=== PATIENT | male | born 1945 | race Hispanic/Latino ===

== ENCOUNTER 2022-12-17 16:46 | Inpatient (IN) | payer OTHER ==
[2022-12-17] MEDS ORDERED: MORPHINE 4 MG/ML SYR ONE (17:27)
[2022-12-17] MEDS ORDERED: ONDANSETRON 4 MG/2 ML VIAL ONE (17:27)
[2022-12-17 18:00] LABS: Hematocrit 40.2 % (39.6-49.0); Lymphocytes % 4.8 % (15.3-44.8); MCV 86.8 fL (80-100); MPV 7.8 fL (7.6-11.3); RBC Red Blood Cell Count 4.63 M/uL (4.33-5.43)
[2022-12-17 18:07] LABS: Protime INR 1.39
[2022-12-17] MEDS ORDERED: NA CHLORIDE 0.9% 500 ML ONE ×3 (18:16→18:56)
[2022-12-17 18:24] LABS: Blood Morphology Comment NOT SEEN (NOT SEEN); Platelet Estimate ADEQ
--- NOTE | 2022-12-17 18:38 | RAD REPORT ---
EXAM DESCRIPTION: [place] Single View12/17/2022 6:05 pm CLINICAL HISTORY: ABDOMINAL DISTENTION COMPARISON: No comparisons TECHNIQUE: Portable AP view of the chest. FINDINGS: Blunting of both costophrenic angles, which may relate to decreased inspiratory effort, sm all effusions, or atelectasis. No pneumothorax. The cardiomediastinal contours are unremarkable. IMPRESSION: Blunting of both costophrenic angles, which may relate to decreased inspiratory effort, small effusions, or atelectasis.
[2022-12-17] MEDS ORDERED: FENTANYL CITR 100 MCG/2 ML ONE ×2 (18:55→21:52)
[2022-12-17 19:07] LABS: Albumin 3.3 g/dL (3.4-5.0); Bilirubin Direct 0.3 mg/dL (0-0.2); Bilirubin Total 0.8 mg/dL (0.2-1.0); Magnesium 1.7 mg/dL (1.6-2.4); Potassium 4.2 mmol/L (3.5-5.1); Protein, Total 7.9 g/dL (6.4-8.2); Troponin High Sensitivity 18.5 pg/mL (<58.9)
[2022-12-17] MEDS ORDERED: PIPERACIL/TAZO 3.375 GM VIAL IV ONE (19:09)
[2022-12-17] MEDS ORDERED: NA CHLORIDE 0.9% 100 ML ONE (19:09)
--- NOTE | 2022-12-17 20:58 | RAD REPORT ---
EXAM DESCRIPTION: CT - Abdomen Pelvis Wo Contrast - 12/17/2022 8:27 pm CLINICAL HISTORY: Abdominal distention. Left-sided abdominal pain. Nausea COMPARISON: None. TECHNIQUE: Axial thin cut CT imaging of the abdomen and pelvis was performed without IV contrast. Mu ltiplanar reformats were generated and reviewed. All CT scans are performed using dose optimization technique as appropriate and may include automated exposure control or mA/KV adjustment according to patient size. FINDINGS: Absence of IV contrast limits evaluation. Bibasilar dependent atelectatic changes. Moderate amount of free air throughout the anterior abdomen, without significant abdominal distention . A long segment of jejunum in the left upper anterior abdomen demonstrates wall thickening with adjace nt fat stranding, and probably reflects an inflamed segment. Remainder of the small bowel is nondiste nded. A segment of ileum extends within a right inguinal hernia, with no evidence of obstruction. The liver, spleen and pancreas show no suspicious findings. Gallbladder and biliary tree are also wit hout suspicious finding. No hydronephrosis or suspicious renal mass. No significant adrenal finding. A fluid density right re nal midpole 2.9 centimeter cystic lesion is noted, as well as a left renal lower pole 3.7 centimeter hypoattenuating lesion. Both are not well characterized on this noncontrast exam. Trace amounts of free fluid along the left paracolic gutter. Colonic diverticulosis. A small left ing uinal hernia containing fat is also noted. The urinary bladder is without significant finding. No suspicious bony findings. IMPRESSION: Long segment of jejunum in the left upper anterior abdomen demonstrating wall thickening . Moderate amount of free air, suggesting presence of small bowel perforation, likely related to that segment. The etiology could be infectious, inflammatory, or related to bowel ischemia, absence of IV contrast limits evaluation. Other incidental findings as above, including right inguinal hernia containing nonobstructed segment of ileum, and hypoattenuating renal cortical lesions suggestive of cysts but not fully characterized. The findings were communicated to Jairon Villalta MD on 12/17/2022 at 20:47 hours.
--- NOTE | 2022-12-17 21:20 | EDPHYS ---
Physician Documentation [facility] Name: Riaz Pruett Age: 77 yrs Sex: Male : 1945 Arrival Date: 12/17/2022 Time: 16:49 Bed 17 Private MD: ED Physician Oswaldo Graff HPI: 12/17 17:25 This 77 yrs old Male presents to ER via Wheelchair with complaints of cp Abdominal Pain. 17:25 The patient presents with abdominal pain mid abdomen. cp 17:25 Onset: The symptoms/episode began/occurred yesterday, and became worse today. The cp symptoms do not radiate. Associated signs and symptoms: Pertinent positives: anorexia, nausea, Pertinent negatives: chest pain, constipation, diarrhea, fever, testicular pain, vomiting. The symptoms are described as constant. Severity of pain: in the emergency department the pain is unchanged despite home interventions. The patient has not experienced similar symptoms in the past. Historical: - Allergies: 16:58 No Known Allergies; hb - Immunization history:: Adult Immunizations up to date. - Social history:: Smoking status: unknown. ROS: 17:30 Constitutional: Positive for poor PO intake, Negative for body aches, chills, fever. cp 17:30 Eyes: Negative for injury, pain, redness, and discharge. cp 17:30 ENT: Negative for drainage from ear(s), ear pain, sore throat, difficulty swallowing, difficulty handling secretions. 17:30 Cardiovascular: Negative for chest pain, edema, palpitations. 17:30 Respiratory: Negative for cough, shortness of breath, wheezing. 17:30 Abdomen/GI: Positive for abdominal pain, nausea, abdominal distension, anorexia, Negative for vomiting, diarrhea, constipation, black/tarry stool, rectal bleeding. 17:30 : Negative for urinary symptoms, testicular pain 17:30 Neuro: Negative for altered mental status, dizziness, headache, numbness, syncope, weakness. 17:30 All other systems are negative. Exam: 17:35 Constitutional: The patient appears in no acute distress, alert, awake, cp non-diaphoretic, non-toxic, well developed, well nourished, in obvious pain, uncomfortable. 17:35 Head/Face: Normocephalic, atraumatic. cp 17:35 Eyes: Periorbital structures: appear normal, Conjunctiva: normal, no exudate, no injection, Sclera: no appreciated abnormality, Lids and lashes: appear normal, bilaterally. 17:35 ENT: External ear(s): are unremarkable, Nose: is normal, Mouth: Lips: moist, Oral mucosa: pink and intact, moist, Posterior pharynx: is normal, airway is patent, no erythema, no exudate. 17:35 Chest/axilla: Inspection: normal, Palpation: is normal, no crepitus, no tenderness. 17:35 Cardiovascular: Rate: normal, Rhythm: regular, Edema: ankle edema, that is very mild, JVD: is not appreciated. 17:35 Respiratory: the patient does not display signs of respiratory distress, Respirations: normal, no use of accessory muscles, no retractions, labored breathing, is not present, Breath sounds: are clear throughout, no decreased breath sounds, no stridor, no wheezing. 17:35 Abdomen/GI: Inspection: distension, that is moderate, Bowel sounds: active, all quadrants, Palpation: soft, in all quadrants, moderate abdominal tenderness, in the right upper quadrant, right lower quadrant and left lower quadrant, severe abdominal tenderness, in the left upper quadrant, rebound tenderness, is not appreciated, voluntary guarding, is elicited in all quadrants. 17:35 Back: CVA tenderness, is absent. 17:35 Skin: cellulitis, is not appreciated, no rash present. 17:35 Neuro: Orientation: to person, place \T\ time. Mentation: is normal, Cerebellar function: is grossly normal, Motor: moves all fours, strength is normal, Sensation: is normal. 17:47 ECG was reviewed by the Attending Physician. cp Vital Signs: 16:56 BP 160 / 104; Pulse 99; Resp 16; Temp 98.4; Pulse Ox 100% on R/A; Weight 88.45 kg; hb Height 5 ft. 9 in. (175.26 cm); Pain 10/10; 17:57 BP 99 / 54 RA; Pulse 92; Resp 18; Pulse Ox 99% on R/A; eh3 17:57 BP 94 / 58 LA; Pulse 91; Resp 18; Pulse Ox 98% on R/A; eh3 18:45 BP 105 / 58; Pulse 85; Resp 20; Pulse Ox 95% on R/A; eh3 19:45 BP 110 / 57; Pulse 82; Resp 20; Pulse Ox 95% on R/A; eh3 20:45 BP 103 / 54; Pulse 84; Resp 18; Pulse Ox 95% on R/A; eh3 16:56 Body Mass Index 28.80 (88.45 kg, 175.26 cm) hb MDM: 17:01 Patient medically screened. cp 18:00 Differential diagnosis: appendicitis, bowel obstruction, cholecystitis, Cholelithiasis, cp diverticulitis, gastritis, non-specific abd pain, pancreatitis, Perf. Duodenal Ulcer, Perf. Gastric Ulcer, Pyelonephritis, Ureterolithiasis, urinary tract infection. 21:05 Data reviewed: vital signs, nurses notes, lab test result(s), EKG, radiologic studies, cp CT scan, plain films. 21:05 Management of patient was discussed with the following: L[employer] Operator: DR Herring to discuss CT abdomen/pelvis findings. Wants patient admitted for emergent surgery tonight to services of hospitalist. Zosyn antibiotic given IV. Care significantly affected by the following chronic conditions: Hypertension. Counseling: I had a detailed discussion with the patient and/or guardian regarding: the historical points, exam findings, and any diagnostic results supporting the discharge/admit diagnosis, lab results, radiology results, the need for further work-up and treatment in the hospital. Response to treatment: the patient's symptoms have mildly improved after treatment. 21:20 Management of patient was discussed with the following: Hospitalist: Aurelia Stark NP who will admit patient after discussing results of labs, CT abdomen/pelvis and request by DR Herring. 12/17 17:20 Order name: Basic Metabolic Panel; Complete Time: 20:09 12/17 20:09 Interpretation: GLUC 184; BUN 39; CRE 2.60; GFR 24. 12/17 17:20 Order name: CBC with Diff; Complete Time: 18:43 12/17 18:22 Interpretation: Normal except: WBC 20.80; LEA% 89.4; LYM% 4.8; NEUT A 18.6. 12/17 17:20 Order name: LFT's; Complete Time: 20:09 12/17 20:09 Interpretation: Normal except: BILID 0.3; ALB 3.3; GLOB 4.6; A/G 0.7. 12/17 17:20 Order name: Magnesium; Complete Time: 20:09 cp 12/17 17:20 Order name: NT PRO-BNP; Complete Time: 20:09 cp 12/17 20:09 Interpretation: Abnormal: NT PRO-BNP 2808. cp 12/17 17:20 Order name: PT-INR; Complete Time: 18:22 cp 12/17 17:20 Order name: Troponin HS; Complete Time: 20:09 cp 12/17 17:20 Order name: Lipase; Complete Time: 20:09 cp 12/17 17:20 Order name: Lactate w/ 2H reflex if indic.; Complete Time: 18:43 cp 12/17 18:43 Interpretation: LAC 2.3; Reviewed. cp 12/17 18:07 Order name: Manual Differential; Complete Time: 18:43 EDMS 12/17 18:45 Order name: Urine Microscopic Only cp 12/17 21:23 Order name: SARS RAPID eh3 12/17 21:33 Order name: Urine Dipstick-Ancillary; Complete Time: 21:37 EDMS 12/17 21:45 Order name: SARS-COV-2 Antigen Rapid; Complete Time: 21:49 EDMS 12/17 17:20 Order name: XRAY Chest (1 view); Complete Time: 18:43 cp 12/17 17:20 Order name: EKG; Complete Time: 17:21 cp 12/17 17:20 Order name: Cardiac monitoring; Complete Time: 17:47 cp 12/17 17:20 Order name: EKG - Nurse/Tech; Complete Time: 17:47 cp 12/17 17:20 Order name: IV Saline Lock; Complete Time: 17:47 cp 12/17 17:20 Order name: Labs collected and sent; Complete Time: 17:47 cp 12/17 19:23 Order name: Abdomen ; Complete Time: 20:59 EDMS 12/17 17:20 Order name: O2 Per Protocol; Complete Time: 17:47 cp 12/17 17:20 Order name: O2 Sat Monitoring; Complete Time: 17:47 cp 12/17 18:20 Order name: Labs - recollect needed: green top recollect; Complete Time: 18:40 aa5 12/17 18:45 Order name: Urine Dipstick-Ancillary (obtain specimen); Complete Time: 23:44 cp 12/17 20:50 Order name: NPO; Complete Time: 21:10 cp EC:47 Rate is 88 beats/min. Rhythm is regular. NE interval is normal. QRS interval is normal. cp QT interval is normal. T waves are Inverted in lead aVR. Interpreted by me. Reviewed by me. Administered Medications: 17:40 Drug: morphine 4 mg Route: IVP; Infused Over: 4 mins; Site: left antecubital; 3 19:03 Follow up: Response: Pain is unchanged, physician notified 3 17:40 Drug: Zofran (Ondansetron) 4 mg Route: IVP; Site: left antecubital; 3 19:03 Follow up: Response: Nausea is decreased 3 18:18 Drug: NS 0.9% 500 ml Route: IV; Rate: bolus; Site: left antecubital; 3 19:30 Follow up: IV Status: Completed infusion; IV Intake: 500ml 3 18:30 Drug: NS 0.9% 500 ml Route: IV; Rate: 100 ml/hr; Site: left antecubital; 3 23:47 Follow up: IV Status: Infusion continued upon admission; IV Intake: 350ml 3 19:03 Drug: Zosyn (piperacillin-tazobactam) 3.375 grams Route: IVPB; Infused Over: 60 mins; eh3 Site: left antecubital; 20:00 Follow up: Response: No adverse reaction; IV Status: Completed infusion; IV Intake: eh3 100ml 19:03 Drug: fentaNYL (PF) 25 mcg Route: IVP; Site: left antecubital; 3 20:00 Follow up: Response: Pain is decreased 3 19:03 Drug: NS 0.9% 500 ml Route: IV; Rate: bolus; Site: left antecubital; 3 20:00 Follow up: IV Status: Completed infusion; IV Intake: 500ml 3 21:55 Drug: fentaNYL (PF) 25 mcg Route: IVP; Site: left antecubital; 3 22:05 Follow up: Response: Pain is decreased 3 Disposition Summary: 12/17/22 21:18 Hospitalization Ordered Hospitalization Status: Inpatient Admission cp Location: Intensive Care Unit cp Condition: Stable cp Problem: new cp Symptoms: have improved cp Bed/Room Type: Standard cp Provider: Cristian Serrano(12/17/22 21:26) genny Room Assignment: 7-(12/17/22 21:26) Diagnosis - Acute kidney failure, unspecified cp - Perforation of Small Intestine cp Forms: - Medication Reconciliation Form cp - SBAR form cp Addendum: 12/19/2022 07:19 Co-signature as Attending Physician, Oswaldo Graff MD I reviewed the patient's care r n provided by the Advanced Practice Provider and agree with the diagnosis and treatment plan. Signatures: Dispatcher [employer] EDMS Kimber Bello RN RN mw Nieto, Roman, MD MD rn Calderon, Audri RN RN aa5 Malcolm Fuller PA PA cp Baxter, Heather RN Kanchan Howard RN RN eh3 Rhonda Stark, PAKarenC PA-C sb4 Corrections: (The following items were deleted from the chart) 12/17 19:23 17:39 Abdomen Pelvis W Con+CT.RAD.BRZ ordered. EDMS EDMS : 21:18 Rhonda Stark cp 21: 21:18 cp mw 21:45 20:53 Reynoso ordered. cp 3
--- NOTE | 2022-12-17 21:20 | ER ---
Nurse's Notes [facility] Name: Riaz Pruett Age: 77 yrs Sex: Male : 1945 Arrival Date: 12/17/2022 Time: 16:49 Bed 17 Private MD: Diagnosis: Acute kidney failure, unspecified;Perforation of Small Intestine Presentation: 12/17 16:56 Chief complaint: Left sided abdominal pain and nausea since last night. Coronavirus hb screen: At this time, the client does not indicate any symptoms associated with coronavirus-19. Ebola Screen: No symptoms or risks identified at this time. Initial Sepsis Screen: Does the patient meet any 2 criteria? No. Patient's initial sepsis screen is negative. Does the patient have a suspected source of infection? No. Patient's initial sepsis screen is negative. Risk Assessment: Do you want to hurt yourself or someone else? Patient reports no desire to harm self or others. Onset of symptoms was December 16, 2022. 16:56 Method Of Arrival: Wheelchair hb 16:56 Acuity: VAN 3 hb Historical: - Allergies: 16:58 No Known Allergies; hb - Immunization history:: Adult Immunizations up to date. - Social history:: Smoking status: unknown. Screenin:15 [facility] ED Fall Risk Assessment (Adult) Score/Fall Risk Level 0 - 2 = Low Risk. Abuse eh3 screen: Denies threats or abuse. Denies injuries from another. Nutritional screening: No deficits noted. Tuberculosis screening: No symptoms or risk factors identified. Assessment: 17:15 General: Appears in no apparent distress. uncomfortable, Behavior is calm, cooperative, eh3 appropriate for age. Pain: Complains of pain in left lower quadrant Pain does not radiate. Pain:. Neuro: Level of Consciousness is awake, alert, obeys commands, Oriented to person, place, time, situation. Cardiovascular: Capillary refill < 3 seconds Patient's skin is warm and dry. Respiratory: Airway is patent Respiratory effort is even, unlabored, Respiratory pattern is regular, symmetrical. Respiratory: Reports pain with respiration. GI: Abdomen is round distended, Bowel sounds present X 4 quads. Abd is soft and non tender in right upper quadrant and right lower quadrant Abdomen is tender to palpation Abd is rigid in left upper quadrant and left lower quadrant Reports lower abdominal pain, nausea. : No signs and/or symptoms were reported regarding the genitourinary system. EENT: No signs and/or symptoms were reported regarding the EENT system. Derm: Skin is pink, warm \T\ dry. Musculoskeletal: Circulation, motion, and sensation intact. Range of motion: intact in all extremities. 18:15 Reassessment: Patient appears in no apparent distress at this time. Patient and/or 3 family updated on plan of care and expected duration. Pain level reassessed. Patient is alert, oriented x 3, equal unlabored respirations, skin warm/dry/pink. 18:45 Reassessment: Patient appears in no apparent distress at this time. Patient and/or eh3 family updated on plan of care and expected duration. Pain level reassessed. Patient is alert, oriented x 3, equal unlabored respirations, skin warm/dry/pink. 19:45 Reassessment: Patient appears in no apparent distress at this time. Patient and/or 3 family updated on plan of care and expected duration. Pain level reassessed. Patient is alert, oriented x 3, equal unlabored respirations, skin warm/dry/pink. 20:45 Reassessment: Patient appears in no apparent distress at this time. Patient and/or eh3 family updated on plan of care and expected duration. Pain level reassessed. Patient is alert, oriented x 3, equal unlabored respirations, skin warm/dry/pink. Vital Signs: 16:56 BP 160 / 104; Pulse 99; Resp 16; Temp 98.4; Pulse Ox 100% on R/A; Weight 88.45 kg; hb Height 5 ft. 9 in. (175.26 cm); Pain 10/10; 17:57 BP 99 / 54 RA; Pulse 92; Resp 18; Pulse Ox 99% on R/A; eh3 17:57 BP 94 / 58 LA; Pulse 91; Resp 18; Pulse Ox 98% on R/A; eh3 18:45 BP 105 / 58; Pulse 85; Resp 20; Pulse Ox 95% on R/A; eh3 19:45 BP 110 / 57; Pulse 82; Resp 20; Pulse Ox 95% on R/A; eh3 20:45 BP 103 / 54; Pulse 84; Resp 18; Pulse Ox 95% on R/A; eh3 16:56 Body Mass Index 28.80 (88.45 kg, 175.26 cm) ED Course: 16:49 Patient arrived in ED. rg4 16:50 [facility] Fuller [facility]. cp 16:51 Oswaldo Graff MD is Attending Physician. cp 16:58 Triage completed. hb 16:58 Arm band placed on. hb 17:15 Patient has correct armband on for positive identification. Bed in low position. Call eh3 light in reach. Side rails up X2. Adult w/ patient. Client placed on continuous cardiac and pulse oximetry monitoring. NIBP monitoring applied. Door closed. Noise minimized. Lights dimmed. Warm blanket given. Pillow given. 17:21 Kanchan Rizo, KALYN is Primary Nurse. eh3 17:40 Inserted saline lock: 20 gauge in left antecubital area, using aseptic technique. Blood eh3 collected. 18:07 XRAY Chest (1 view) In Process Unspecified. EDMS 18:24 Notified Nurse Practitioner and/or Physician [employer] Attendant of a critical lab result(s), 11% aa5 bands. 20:29 Abdomen In Process Unspecified. EDMS 21:17 Rhonda Stark PA-C is Hospitalizing Provider. cp 21:26 Hospitalizing Provider role handed off by Rhonda Stark PA-C mw 21:26 Cristian Serrano MD is Hospitalizing Provider. mw 21:26 SARS RAPID Sent. eh3 22:00 No provider procedures requiring assistance completed. Patient admitted, IV remains in eh3 place. Administered Medications: 17:40 Drug: morphine 4 mg Route: IVP; Infused Over: 4 mins; Site: left antecubital; eh3 19:03 Follow up: Response: Pain is unchanged, physician notified eh3 17:40 Drug: Zofran (Ondansetron) 4 mg Route: IVP; Site: left antecubital; eh3 19:03 Follow up: Response: Nausea is decreased eh3 18:18 Drug: NS 0.9% 500 ml Route: IV; Rate: bolus; Site: left antecubital; eh3 19:30 Follow up: IV Status: Completed infusion; IV Intake: 500ml eh3 18:30 Drug: NS 0.9% 500 ml Route: IV; Rate: 100 ml/hr; Site: left antecubital; eh3 23:47 Follow up: IV Status: Infusion continued upon admission; IV Intake: 350ml eh3 19:03 Drug: Zosyn (piperacillin-tazobactam) 3.375 grams Route: IVPB; Infused Over: 60 mins; eh3 Site: left antecubital; 20:00 Follow up: Response: No adverse reaction; IV Status: Completed infusion; IV Intake: eh3 100ml 19:03 Drug: fentaNYL (PF) 25 mcg Route: IVP; Site: left antecubital; eh3 20:00 Follow up: Response: Pain is decreased eh3 19:03 Drug: NS 0.9% 500 ml Route: IV; Rate: bolus; Site: left antecubital; eh3 20:00 Follow up: IV Status: Completed infusion; IV Intake: 500ml eh3 21:55 Drug: fentaNYL (PF) 25 mcg Route: IVP; Site: left antecubital; eh3 22:05 Follow up: Response: Pain is decreased eh3 Medication: 22:00 VIS not applicable for this client. eh3 Intake: 19:30 IV: 500ml; Total: 500ml. eh3 20:00 IV: 500ml; Total: 1000ml. eh3 20:00 IV: 100ml; Total: 1100ml. eh3 23:47 IV: 350ml; Total: 1450ml. eh3 Outcome: 21:18 Decision to Hospitalize by Provider. cp 22:00 Admitted to OR accompanied by nurse, via stretcher. eh3 22:00 Condition: stable 22:00 Instructed on the need for admit. 22:08 Patient left the ED. 3 Signatures: Dispatcher [employer] EDMS Kimber Bello RN RN mw Calderon, Audri RN RN [id number] Malcolm Fuller PA PA cp Ashlyn Vaca RN RN hb Garcia, Rubi rg4 Kanchan Rizo RN RN 3 Corrections: (The following items were deleted from the chart) 18:10 17:57 BP 99 / 54; Pulse 92bpm; Resp 18bpm; Pulse Ox 99% RA; eh3 eh3
[2022-12-17 21:32] LABS: Urine Blood Negative (Negative); Urine Glucose Trace (Negative); Urine Protein 1+ (Negative); Urine Specific Gravity 1.025 (1.005-1.030)
[2022-12-17 21:44] LABS: SARS-CoV-2 Antigen Rapid Res Negative (Negative)
[2022-12-17 21:48] LABS: Transitional Epithelial <5 /HPF (None Seen); Urine Bacteria None Seen /HPF (<20); Urine Mucus Slight /HPF (None Seen)
--- NOTE | 2022-12-17 21:49 | P.HP ---
Certification for Inpatient Patient admitted to: Inpatient With expected LOS: >2 Midnights Patient will require the following post-hospital care: None Practitioner: I am a practitioner with admitting privileges, knowledge of patient current condition, hospital course, and medical plan of care. Services: Services provided to patient in accordance with Admission requirements found in Title 42 Section 412.3 of the Code of Federal Regulations <Rhonda Stark - Last Filed: 12/18/22 01:29> Patient History Date of Service: 12/18/22 Reason for admission: Bowel Perforation History of Present Illness: Patient is a 77 year old male with past medical history of hypertension who presented to the emergency department with complaints of nausea, vomiting, and abdominal pain for the past 24 hours. His labs are significant for WBC 20.8 with left shift and 11 bands, BUN 39, creatinine 2.6, lactate 2.3, BNP 2800, urine ketone & nitrite positive. CT abdomen pelvis showed " Long segment of jejunum in the left upper anterior abdomen demonstrating wall thickening. Moderate amount of free air, suggesting presence of small bowel perforation, likely related to that segment. The etiology could be infectious, inflammatory, or related to bowel ischemia, absence of IV contrast limits evaluation." General surgery, Dr. Herring, was contacted and is taking patient to OR tonight. He was given IV fluids, zosyn, and pain medications with improvement in his symptoms. Patient will be taken to OR for exploratory laparotomy then ICU afterwards for further management. - Past Medical/Surgical History Diabetic: No -: Hypertension -: Bilateral Knee Replacement -: Right Hip Replacement -: Right Shoulder Psychosocial/ Personal History: Patient is . - Family History Family History: Reviewed- Non-Contributory - Social History Smoking Status: Never smoker Alcohol use: Yes CD- Drugs: No Caffeine use: Yes Place of Residence: Home <Rhonda Stark - Last Filed: 12/18/22 01:29> Date of Service: 12/18/22 <Cristian Serrano - Last Filed: 12/18/22 08:35> Allergies No Known Allergies Allergy (Verified 12/17/22 22:31) Review of Systems Gastrointestinal: Nausea, Vomiting, Abdominal Pain, Distention <LincolnRhonda - Last Filed: 12/18/22 01:29> Physical Examination - Vital Signs Temperature: 98.4 F Blood Pressure: 131/62 Pulse: 89 Respirations: 18 Pulse Ox (%): 95 - Physical Exam General: Alert, In no apparent distress HEENT: Atraumatic, EOMI, Sclerae nonicteric Neck: Supple, 2+ carotid pulse no bruit Respiratory: Clear to auscultation bilaterally, Normal air movement Cardiovascular: Regular rate/rhythm, Normal S1 S2 Gastrointestinal: Normal bowel sounds, No tenderness Musculoskeletal: No tenderness Integumentary: No rashes Neurological: Normal speech, Normal affect - Studies Laboratory Data (last 24 hrs) 12/17/22 18:40: Sodium 137, Potassium 4.2, BUN 39 H, Creatinine 2.60 H, Glucose 184 H, Magnesium 1.7, Total Bilirubin 0.8, AST 29, ALT 20, Alkaline Phosphatase 68, Lipase 32 12/17/22 17:44: PT 15.3 H, INR 1.39 12/17/22 17:44: WBC 20.80 H*, Hgb 13.6, Hct 40.2, Plt Count 296 <Rhonda Stark - Last Filed: 12/18/22 01:29> - Studies Laboratory Data (last 24 hrs) 12/17/22 18:40: Sodium 137, Potassium 4.2, BUN 39 H, Creatinine 2.60 H, Glucose 184 H, Magnesium 1.7, Total Bilirubin 0.8, AST 29, ALT 20, Alkaline Phosphatase 68, Lipase 32 12/17/22 17:44: PT 15.3 H, INR 1.39 12/17/22 17:44: WBC 20.80 H*, Hgb 13.6, Hct 40.2, Plt Count 296 <Cristian Serrano - Last Filed: 12/18/22 08:35> Assessment and Plan - Problems (Diagnosis) (1) Diverticulitis of large intestine with perforation Current Visit: Yes Status: Acute Qualifiers: Diverticulitis bleeding: without bleeding Qualified Code(s): K57.20 - Diverticulitis of large intestine with perforation and abscess without bleeding (2) Peritonitis Current Visit: Yes Status: Acute (3) Sepsis Current Visit: Yes Status: Acute Qualifiers: Sepsis type: sepsis due to unspecified organism Sepsis acute organ dysfunction status: with acute organ dysfunction Severe sepsis acute organ dysfunction type: acute renal failure Acute renal failure type: unspecified Severe sepsis shock status: without septic shock Qualified Code(s): A41.9 - Sepsis, unspecified organism; R65.20 - Severe sepsis without septic shock; N17.9 - Acute kidney failure, unspecified (4) Hypertension Current Visit: Yes Status: Chronic Qualifiers: Hypertension type: primary hypertension Qualified Code(s): I10 - Essential (primary) hypertension (5) UTI (urinary tract infection) Current Visit: Yes Status: Acute Qualifiers: Urinary tract infection type: acute cystitis Hematuria presence: without hematuria Qualified Code(s): N30.00 - Acute cystitis without hematuria - Plan Patient is admitted to ICU for further management of perforated diverticulitis s/p emergent exploratory laparotomy. Found to have peritonitis with gross fecal contamination and bowel perforation of descending colon. Surgery required partial colectomy with colostomy creation. 2 PEARL drains and NGT in place. Meeting severe sepsis criteria with tachycardia, WBC > 12, 11% bands, lactate > 2, creatinine > 2. Repeat lactate WNL. Started on zosyn in ED however blood cultures not obtained in ED. They have now been ordered. Continue zosyn. Acute renal failure secondary to severe sepsis. Continue IV hydration. Diet per general surgery. Pain medications as needed. Monitor and replete electrolytes per protocol. Discharge Plan: Home Plan to discharge in: Greater than 2 days - Advance Directives Does patient have a Living Will: No Does patient have a Durable POA for Healthcare: No - Code Status/Comfort Care Code Status Assessed: Yes Code Status: Full Code Physician Review: Patient Assessed, Agree with Above Assessment and Plan Critical Care: No Time Spent Managing Pts Care (In Minutes): 50 <Rhonda Stark - Last Filed: 12/18/22 01:29> Physician Review: Patient Assessed, Agree with Above Assessment and Plan <Cristain Serrano - Last Filed: 12/18/22 08:35>
[2022-12-17] MEDS ORDERED: Ringers Lactate 1,000 ML IV ONE (22:20)
[2022-12-17] MEDS ORDERED: SUCCINYLCHOLINE 20 MG/ML (10 ML) IV ONE (22:22)
[2022-12-17] MEDS ORDERED: Ringers Lactate 1,000 ML IV SCH (22:31)
[2022-12-17] MEDS ORDERED: ONDANSETRON 4 MG/2 ML VIAL IV PRN (22:31)
[2022-12-17] MEDS ORDERED: ROCURONIUM 50 MG/5 ML VIAL IV ONE (22:33)
[2022-12-17] MEDS ORDERED: FENTANYL CITR 250 MCG/5 ML ONE (22:33)
[2022-12-17] MEDS ORDERED: propofoL 200 MG/20 ML VIAL IV ONE (22:33)
[2022-12-17] MEDS ORDERED: Phenylephrine HCl 10 MG/ML 1 ML VIAL ONE (22:54)
[2022-12-18] MEDS ORDERED: GLYCOPYRROLATE 0.2 MG/ML SYR ONE (00:16)
[2022-12-18] MEDS ORDERED: NEOSTIGMINE 1 MG/ML -10 ML VIAL ONE (00:16)
[2022-12-18] MEDS ORDERED: Ringers Lactate 1,000 ML IV ONE (00:32)
[2022-12-18] MEDS: FENTANYL CITR 100 MCG/2 ML ONE ×2 (00:51→01:02)
[2022-12-18] MEDS: HYDROMORPHONE HCL 1 MG/ML INJ ONE ×2 (01:15→01:23)
--- NOTE | 2022-12-18 01:15 | P.BOP ---
Preoperative diagnosis: peritonitis, acute abdomen, perforated viscus Postoperative diagnosis: Perforated diverticulitis Primary procedure: Emergent exploratoty laparotomy, partial colectomy, colostomy creation Transition Advisor: May Alcala (feed grinder) Estimated blood loss: <100cc Specimen: colon mid descending Findings: peritonitis with gross fecal contamination, bowel perforationcolon mid desc Anesthesia: General Complications: None Drain(s): PEARL drain, Other (wound packed) Transferred to: Recovery Room Condition: Critical
[2022-12-18] MEDS: Ringers Lactate 1,000 ML IV SCH ×4 (01:51→22:15)
[2022-12-18] MEDS: PIPER TAZO 3.375 GM in NA CHLORIDE 0.9% 100 ML IV SCH ×3 (02:27→16:52)
[2022-12-18] MEDS: MORPHINE 4 MG/ML SYR IV PRN ×7 (02:45→20:12)
[2022-12-18 04:43] LABS: Absolute Lymphocytes (CBC) 0.8 K/uL (0.7-4.9); Hematocrit 35.9 % (39.6-49.0); MCV 86.2 fL (80-100); MPV 7.6 fL (7.6-11.3); RBC Red Blood Cell Count 4.16 M/uL (4.33-5.43)
[2022-12-18 05:08] LABS: Magnesium 1.6 mg/dL (1.6-2.4); Phosphorus 3.7 mg/dL (2.5-4.9); Potassium 3.9 mmol/L (3.5-5.1); Thyroid Stimulating Hormone 1.77 uIU/mL (0.358-3.740)
--- NOTE | 2022-12-18 05:38 | CON ---
Date of Consultation: 12/17/2022 History Of Present Illness: This is a case of a male who comes a few minutes ago to the hospital com plaining of severe abdominal pain and distention. Found to have peritonitis, found to have also a CA T scan showing a free air in the abdomen from a possible small bowel etiology with peritonitis. Also found to have some medical issues including renal insufficiency at the same time. The story lists t hat he was doing well until yesterday morning. Then after that he had some barbecue ribs. He feels okay and then after that he had some spicy empanadas for dinner. He stated that after that few minut es later he felt a sharp pain in the abdomen. He thought it was just indigestion, so he had some tea s and some other liquid, trying to see if he can get better. At 1 moment he goes to the restroom. H e got weak. Family got him out away from the restroom and then put him on his bed and overnight he h as been trying to see if he gets better. This morning, once again having the abdominal pain, feels d istended, bloated, and the pain is getting worse. He had a bowel movement, but with no blood, but di d not improve his condition and then now overnight since the patient was not getting better, he shows to the ER and he shows over there with all these medical problems right now plus the peritonitis wit h perforation of viscus and the OR was emergently called and I was emergently called too. Most infor mation is obtained from the patient, , and also daughter present was kind enough to give me the i nformation. Past Surgical History: Includes bilateral knee replacements, right hip replacement, right shoulder s urgery. They do not remember the last colonoscopy. Past Medical History: Includes hypertension. Social History: He does not smoke. Drinks alcohol just occasionally. Review of Systems: Once again, abdominal pain, distention, nausea, vomiting, bloating. Physical Examination: General: The patient is awake and alert. Eyes: Pupils are equal and reactive. Anicteric. Neck: Supple. Chest: Clear. Heart: S1 and S2. Abdomen: No bowel sounds. The patient has severe distention with a tympanic abdomen with peritoniti s and guarding and rebound. Rectal: Deferred. Extremities: Good capillary refill. Laboratory Data: Blood work shows WBC count of 20.8, hemoglobin of 13 and platelets of 296. INR is 1.39. BUN is 39, glucose 184. Imaging Data: CAT scan of the abdomen and pelvis interpreted by Dr. Duarte as long segment of jejunu m in the left upper anterior abdomen demonstrating wall thickening. Moderate amount of free air sugg esting presence of small bowel perforation, likely related to that segment. The etiology could be in fectious, inflammatory, or related to bowel ischemia. Other incidental findings are right inguinal h ernia containing non-obstructed segment of ileum and also a renal cyst. Assessment: This is a 77-year-old patient with acute abdomen, peritonitis, tympanic and rigid abdome n with renal insufficiency, leukocytosis. The patient was emergently taken to the OR suite. As we e xplained to the family, the benefits, alternatives, and risks of emergent laparotomy, possible resect ion, possible ostomy with benefits, alternatives, risks including, but not limited to infection, blee ding, damage to adjacent structures, anesthesia complication, abscess, OK. He also understands this may not relieve any symptoms, may need more than one surgical intervention. If we create an ostomy, may or not be reversed. At this moment we do not have the exact etiology of this, so we will proceed accordingly. He understands about his kidney issues and also about the hernia that may have to repa ir in the future when this emergency is over. He understands also the importance of colonoscopies. The OR was immediately called. RENAN/VIOLETTE Voice ID: [id number] Report ID: [id number]
[2022-12-18 05:49] VITALS: BMI 31.8
[2022-12-18] MEDS ORDERED: KCL 20 MEQ/100 mL IVPB 20 MEQ/100 ML BAG IV SCH (08:00)
--- NOTE | 2022-12-18 08:02 | P.CNS ---
Date of Consult: 12/18/22 Chief Complaint: Bowel Perforation History of Present Illness: Patient is a 77 year old male with past medical history of hypertension who presented to the emergency department with complaints of nausea, vomiting, and abdominal pain for the past 24 hours. His labs are significant for WBC 20.8 with left shift and 11 bands, BUN 39, creatinine 2.6, lactate 2.3, BNP 2800, urine ketone & nitrite positive. CT abdomen pelvis showed " Long segment of jejunum in the left upper anterior abdomen demonstrating wall thickening. Moderate amount of free air, suggesting presence of small bowel perforation, likely related to that segment. The etiology could be infectious, inflammatory, or related to bowel ischemia, absence of IV contrast limits evaluation." General surgery, Dr. Herring, was contacted and is taking patient to OR tonight. He was given IV fluids, zosyn, and pain medications with improvement in his symptoms. Patient will be taken to OR for exploratory laparotomy then ICU afterwards for further management ID has been consulted for IV antibiotic recommendations and management of SB perforation Allergies No Known Allergies Allergy (Verified 12/17/22 22:31) Home Medications: Aspirin/Acetaminophen/Caffeine [Excedrin Migraine Caplet] 1 each PO Q8HP PRN 12/18/22 Carvedilol [Coreg] 12.5 mg PO DAILY 12/18/22 Ibuprofen [Motrin] 200 mg PO Q6HP PRN 12/18/22 Turmeric 400 mg PO DAILY 12/18/22 - Past Medical/Surgical History Diabetic: No -: Hypertension -: Bilateral Knee Replacement -: Right Hip Replacement -: Right Shoulder surgery Psychosocial/ Personal History: Patient is . - Social History Smoking Status: Unknown if ever smoked Alcohol use: No CD- Drugs: No Caffeine use: Yes Place of Residence: Home Review of Systems 10-point ROS is otherwise unremarkable Physical Examination Temp Pulse Resp BP Pulse Ox 96.9 F 79 19 122/59 L 95 12/18/22 04:00 12/18/22 06:00 12/18/22 06:00 12/18/22 06:00 12/18/22 06:00 General: Alert, In no apparent distress, Oriented x3 Respiratory: Clear to auscultation bilaterally, Other (3 L NC) Cardiovascular: No edema, Normal S1 S2 Gastrointestinal: Hypoactive, Other (LUQ colostomy bag; [address] with clear sanguineous fluid) Musculoskeletal: No swelling, No tenderness Integumentary: Other (abdominal surgical incision) Neurological: Normal speech, Normal tone, Normal affect Laboratory Data (last 24 hrs) 12/17/22 18:40: Sodium 137, Potassium 4.2, BUN 39 H, Creatinine 2.60 H, Glucose 184 H, Magnesium 1.7, Total Bilirubin 0.8, AST 29, ALT 20, Alkaline Phosphatase 68, Lipase 32 12/17/22 17:44: PT 15.3 H, INR 1.39 12/17/22 17:44: WBC 20.80 H*, Hgb 13.6, Hct 40.2, Plt Count 296 active medications Piperacillin Sod/Tazobactam (Sod 3.375 gm/ Sodium Chloride) 100 mls @ 25 mls/hr IV Q8HR TAMMIE; Protocol Last Admin: 12/18/22 02:27 Dose: 100 mls Lactated Ringer's (Lactated Ringers) 1,000 mls @ 150 mls/hr IV .Q6H40M TAMMIE Last Admin: 12/18/22 08:01 Dose: 1,000 mls Potassium Chloride (Kcl 20 Meq/100 Ml Ivpb (Premix)) 20 meq in 100 mls @ 50 mls/hr IV 1X TAMMIE; Protocol Stop: 12/18/22 09:59 Last Admin: 12/18/22 07:26 Dose: Not Given Morphine Sulfate (Morphine 4 Mg/Ml Syr) 4 mg IV Q2H PRN PRN Reason: Pain scale 5-7 (Moderate) Last Admin: 12/18/22 02:45 Dose: 4 mg Ondansetron HCl (Ondansetron 4 Mg/2 Ml Vial) 4 mg IV Q6HP PRN PRN Reason: NAUSEA / VOMITING Sodium Chloride (Flush Normal Saline 10 Ml) 10 ml IV BID TAMMIE Last Admin: 12/18/22 08:02 Dose: 10 ml Imagings Data: [facility] Single View12/17/2022 FINDINGS: Blunting of both costophrenic angles, which may relate to decreased inspiratory effort, small effusions, or atelectasis. No pneumothorax. The cardiomediastinal contours are unremarkable. IMPRESSION: Blunting of both costophrenic angles, which may relate to decreased inspiratory effort, small effusions, or atelectasis CT - Abdomen Pelvis Wo Contrast - 12/17/2022 FINDINGS: Absence of IV contrast limits evaluation. Bibasilar dependent atelectatic changes. Moderate amount of free air throughout the anterior abdomen, without significant abdominal distention. A long segment of jejunum in the left upper anterior abdomen demonstrates wall thickening with adjacent fat stranding, and probably reflects an inflamed segment. Remainder of the small bowel is nondistended. A segment of ileum extends within a right inguinal hernia, with no evidence of obstruction. The liver, spleen and pancreas show no suspicious findings. Gallbladder and biliary tree are also without suspicious finding. No hydronephrosis or suspicious renal mass. No significant adrenal finding. A fluid density right renal midpole 2.9 centimeter cystic lesion is noted, as well as a left renal lower pole 3.7 centimeter hypoattenuating lesion. Both are not well characterized on this noncontrast exam. Trace amounts of free fluid along the left paracolic gutter. Colonic diverticulosis. A small left inguinal hernia containing fat is also noted. The urinary bladder is without significant finding. No suspicious bony findings. IMPRESSION: Long segment of jejunum in the left upper anterior abdomen de monstrating wall thickening. Moderate amount of free air, suggesting presence of small bowel perforation, likely related to that segment. The etiology could be infectious, inflammatory, or related to bowel ischemia, absence of IV contrast limits evaluation. Other incidental findings as above, including right inguinal hernia containing nonobstructed segment of ileum, and hypoattenuating renal cortical lesions suggestive of cysts but not fully characterized - Problems (1) Small bowel perforation Plan: Cultures: - 12/18 BC x 2: Culture pending - 12/17 Peritoneal fluid: Culture pending - 12/17 Abdominal fluid: Culture pending - 12/17 UC: Culture pending Antibiotics: - Current on IV Zosyn (12/17- ) Recommendations: - Continue Zosyn - ID will recommend antibiotics drug of choice when cultures are available 12/18 Dr. Herring had emergent exploratory laparotomy, partial colectomy, colostomy creation (2) Peritonitis Plan: Secondary to bowel perforation Cultures: - 12/18 BC x 2: Culture pending - 12/17 Peritoneal fluid: Culture pending - 12/17 Abdominal fluid: Culture pending - 12/17 UC: Culture pending Antibiotics: - Current on IV Zosyn (12/17- ) Recommendations: - Continue Zosyn - ID will recommend antibiotics drug of choice when cultures are available (3) UTI (urinary tract infection) Plan: Cultures: - 12/18 BC x 2: Culture pending - 12/17 Peritoneal fluid: Culture pending - 12/17 Abdominal fluid: Culture pending - 12/17 UC: Culture pending Antibiotics: - Current on IV Zosyn (12/17- ) Recommendations: - Continue Zosyn - ID will recommend antibiotics drug of choice when cultures are available Conclusions/Impression: - Diverticulitis of large intestine with perforation: Continue IV antibiotics - Small bowel perforation: Continue IV antibiotics and cultures pending - Peritonitis: Cultures pending - Sepsis: On IV antibiotics - Leukocytosis: Keep monitoring the trends - UTI (urinary tract infection): Continue IV antibiotics and cultures pending - Mild protein calorie malnutrition - Hypertension - Bilateral Knee Replacement - Right Hip Replacement ID will closely monitor the patient for sings of infection with fever and WBC trends Case has been discussed with Dr. Sauer N Thank you Dr. Serrano for consultation
--- NOTE | 2022-12-18 08:34 | P.PN ---
Subjective Date of Service: 12/18/22 Chief Complaint: Bowel Perforation Overnight, he underwent an emergent exploratory laparotomy, partial colectomy, and colostomy formation. He tolerated the procedure well, without any apparent complications. This morning, he reports generalized abdominal pain, which he grades a 6-7/10 in severity. He denies any flatus or bowel movements. NG tube in place, with brown gastric output noted. Review of Systems 10-point ROS is otherwise unremarkable Gastrointestinal: Nausea, Abdominal Pain, Other (s/p ostomy) Physical Examination - Vital Signs Temperature: 96.9 F Blood Pressure: 122/59 Pulse: 79 Respirations: 19 Pulse Ox (%): 95 - Physical Exam General: Alert, In no apparent distress, Oriented x3 HEENT: Atraumatic, Mucous membr. moist/pink, EOMI, Sclerae nonicteric Neck: JVD not distended Respiratory: Clear to auscultation bilaterally, Normal air movement Cardiovascular: No edema, Regular rate/rhythm, Normal S1 S2, No gallops, No rubs, No murmurs Gastrointestinal: Hypoactive, Other (ostomy in mid-left abdomen with minimal stool output, 2 PEARL drains noted), Tenderness (minimal, generalized) Musculoskeletal: No clubbing Integumentary: No rashes Neurological: Normal speech, Normal affect - Studies Laboratory Data (last 24 hrs) 12/17/22 18:40: Sodium 137, Potassium 4.2, BUN 39 H, Creatinine 2.60 H, Glucose 184 H, Magnesium 1.7, Total Bilirubin 0.8, AST 29, ALT 20, Alkaline Phosphatase 68, Lipase 32 12/17/22 17:44: PT 15.3 H, INR 1.39 12/17/22 17:44: WBC 20.80 H*, Hgb 13.6, Hct 40.2, Plt Count 296 Assessment And Plan - Plan # Small Bowel (Jejunum) Perforation with Peritonitis s/p Emergent Exploratory Laparotomy, Partial Colectomy, and Colostomy Formation # Bilateral Inguinal Hernias - CT abdomen/pelvis = "long segment of jejunum in the left upper anterior abdomen demonstrating wall thickening. Moderate amount of free air, suggesting presence of small bowel perforation, likely related to that segment. The etiology could be infectious, inflammatory, or related to bowel ischemia, absence of IV contrast limits evaluation. Other incidental findings as above, including right inguinal hernia containing nonobstructed segment of ileum, and hypoattenuating renal cortical lesions suggestive of cysts but not fully characterized." - General Surgery consulted and he was evaluated by Dr. Herring - recommendations appreciated - S/P emergent exploratory laparotomy, partial colectomy, and colostomy formation (12/17/2022) - Continue piperacillin-tazobactam - Diet per Surgery - PRN pain control # Possible Severe Sepsis secondary to Intra-Abdominal Infection (Peritonitis due to Bowel Perforation) # Possible Urinary Tract Infection He met sepsis criteria based on HR > 90 bpm, RR > 20 breaths/min, and WBC > 12,000 and the suspected source is intra-abdominal. Severe sepsis is suspected due to concern for tissue hypoperfusion/organ dysfunction based on creatinine >2.0 mg/dL (without ESRD) and lactic acid > 2 mmol/L. - Infectious Diseases consulted - recommendations appreciated - Sepsis order set was initiated - Lactate trend: 2.3 -> 1.6 - Blood cultures x 2 drawn - Broad spectrum antibiotics started: Piperacillin-Tazobactam - In regards to fluids: - 30 mL/kg of IV fluids was not administered given SBP > 90, MAP > 65, lactic acid < 4, and blood pressure responded to lesser volume # Acute Kidney Injury suspect due to Severe Sepsis # Right Renal Cyst (2.9 cm) # Left Renal Cyst (3.7 cm) # Microscopic Hematuria - Nephrology consulted - recommendations appreciated - Creatinine = 2.60 -> 2.00 (baseline creatinine unknown) - Urinalysis = trace ketones, positive nitrite, 510 RBCs, 2050 WBCs, > hyaline casts, 1+ protein - IV fluids per Nephrology - Monitor creatinine and urine output - If worsening, obtain renal ultrasound - Renally dose medications # Hypertension - Hold home anti-hypertensives given concern for severe sepsis Cristian Serrano M.D.
--- NOTE | 2022-12-18 10:05 | P.PN ---
Subjective Date of Service: 12/18/22 Chief Complaint: Bowel Perforation, peritinitis, gross fecal contamination, partial colectom Subjective: No new changes, Improving Review of Systems General: Fever (lighting fixtures decorator), Chills (lighting fixtures decorator) Respiratory: Shortness of Breath (lighting fixtures decorator) Cardiovascular: Chest Pain (lighting fixtures decorator) Gastrointestinal: Nausea (lighting fixtures decorator), Vomiting (lighting fixtures decorator), Distention Integumentary: Unremarkable Physical Examination - Vital Signs Temperature: 96.9 F Blood Pressure: 122/59 Pulse: 79 Respirations: 19 Pulse Ox (%): 95 - Physical Exam General: Alert, In no apparent distress, Oriented x3, Cooperative HEENT: PERRLA Neck: Supple Respiratory: Normal air movement Cardiovascular: Normal pulses Gastrointestinal: Absent bowel sounds (Midline incision intat, PEARL serosanguineous), Distended (ostomy viable) Neurological: Normal speech - Studies Laboratory Data (last 24 hrs) 12/17/22 18:40: Sodium 137, Potassium 4.2, BUN 39 H, Creatinine 2.60 H, Glucose 184 H, Magnesium 1.7, Total Bilirubin 0.8, AST 29, ALT 20, Alkaline Phosphatase 68, Lipase 32 12/17/22 17:44: PT 15.3 H, INR 1.39 12/17/22 17:44: WBC 20.80 H*, Hgb 13.6, Hct 40.2, Plt Count 296 Assessment And Plan - Plan Wet to dry NS daily incentive spirometry DVT prophylaxis NPO IV abx ID consult Renal evaluation Physician Review: Patient Assessed, Agree with Above Assessment and Plan
--- NOTE | 2022-12-18 10:14 | P.CNS ---
Date of Consult: 12/18/22 Reason for Consult: GAB Requesting Physician: Cristian Serrano Chief Complaint: Bowel Perforation, peritonitis, gross fecal contamination History of Present Illness: Patient is a 77 year old male with past medical history of hypertension who presented to the emergency department with complaints of nausea, vomiting, and abdominal pain for the past 24 hours. His labs are significant for WBC 20.8 with left shift and 11 bands, BUN 39, creatinine 2.6, lactate 2.3, BNP 2800, urine ketone & nitrite positive. CT abdomen pelvis showed " Long segment of jejunum in the left upper anterior abdomen demonstrating wall thickening. Moderate amount of free air, suggesting presence of small bowel perforation, likely related to that segment. The etiology could be infectious, inflammatory, or related to bowel ischemia, absence of IV contrast limits evaluation." General surgery, Dr. Herring, was contacted and is taking patient to OR tonight. He was given IV fluids, zosyn, and pain medications with improvement in his symptoms. Patient will be taken to OR for exploratory laparotomy then ICU afterwards for further management. 16:56 Chief complaint: Left sided abdominal pain and nausea since last night. Coronavirus hb screen: At this time, the client does not indicate any symptoms associated with coronavirus-19. Ebola Screen: No symptoms or risks identified at this time. Initial Sepsis Screen: Does the patient meet any 2 criteria? No. Patient's initial sepsis screen is negative. Does the patient have a suspected source of infection? No. Patient's initial sepsis screen is negative. Risk Assessment: Do you want to hurt yourself or someone else? Patient reports no desire to harm self or others. Onset of symptoms was December 16, 2022. He does not report a history of CKD. He reports taking ibuprofen from daily to less than daily for many months to years. He admits to ibuprofen twice daily prior to admission for the pain. He denies any difficulty with urination. Allergies No Known Allergies Allergy (Verified 12/17/22 22:31) Home medications list reviewed: Yes Home Medications: Aspirin/Acetaminophen/Caffeine [Excedrin Migraine Caplet] 1 each PO Q8HP PRN 12/18/22 Carvedilol [Coreg] 12.5 mg PO DAILY 12/18/22 Ibuprofen [Motrin] 200 mg PO Q6HP PRN 12/18/22 Turmeric 400 mg PO DAILY 12/18/22 - Past Medical/Surgical History Diabetic: No -: Hypertension -: Bilateral Knee Replacement -: Right Hip Replacement -: Right Shoulder surgery Psychosocial/ Personal History: Patient is . - Social History Smoking Status: Unknown if ever smoked Alcohol use: No CD- Drugs: No Caffeine use: Yes Place of Residence: Home Review of Systems 10-point ROS is otherwise unremarkable General: Weakness, Malaise Gastrointestinal: Abdominal Pain Physical Examination Temp Pulse Resp BP Pulse Ox 96.9 F 79 19 122/59 L 95 12/18/22 10:05 12/18/22 10:05 12/18/22 10:05 12/18/22 10:05 12/18/22 10:05 General: In no apparent distress, Oriented x3, Cooperative HEENT: Atraumatic Neck: Supple Respiratory: Clear to auscultation bilaterally Cardiovascular: No edema, Regular rate/rhythm Gastrointestinal: Non-distended, Tenderness Musculoskeletal: No clubbing, No contractures Integumentary: No rashes, No cyanosis Neurological: Normal speech Urinary: Reynoso catheter Laboratory Data (last 24 hrs) 12/17/22 18:40: Sodium 137, Potassium 4.2, BUN 39 H, Creatinine 2.60 H, Glucose 184 H, Magnesium 1.7, Total Bilirubin 0.8, AST 29, ALT 20, Alkaline Phosphatase 68, Lipase 32 12/17/22 17:44: PT 15.3 H, INR 1.39 12/17/22 17:44: WBC 20.80 H*, Hgb 13.6, Hct 40.2, Plt Count 296 Imagings Data: EXAM DESCRIPTION: [facility] Single View12/17/2022 6:05 pm CLINICAL HISTORY: ABDOMINAL DISTENTION COMPARISON: No comparisons TECHNIQUE: Portable AP view of the chest. FINDINGS: Blunting of both costophrenic angles, which may relate to decreased inspiratory effort, small effusions, or atelectasis. No pneumothorax. The cardiomediastinal contours are unremarkable. IMPRESSION: Blunting of both costophrenic angles, which may relate to decreased inspiratory effort, small effusions, or atelectasis. EXAM DESCRIPTION: CT - Abdomen Pelvis Wo Contrast - 12/17/2022 8:27 pm CLINICAL HISTORY: Abdominal distention. Left-sided abdominal pain. Nausea COMPARISON: None. TECHNIQUE: Axial thin cut CT imaging of the abdomen and pelvis was performed without IV contrast. Multiplanar reformats were generated and reviewed. All CT scans are performed using dose optimization technique as appropriate and may include automated exposure control or mA/KV adjustment according to patient size. FINDINGS: Absence of IV contrast limits evaluation. Bibasilar dependent atelectatic changes. Moderate amount of free air throughout the anterior abdomen, without significant abdominal distention. A long segment of jejunum in the left upper anterior abdomen demonstrates wall thickening with adjacent fat stranding, and probably reflects an inflamed segment. Remainder of the small bowel is nondistended. A segment of ileum extends within a right inguinal hernia, with no evidence of obstruction. The liver, spleen and pancreas show no suspicious findings. Gallbladder and biliary tree are also without suspicious finding. No hydronephrosis or suspicious renal mass. No significant adrenal finding. A fluid density right renal midpole 2.9 centimeter cystic lesion is noted, as well as a left renal lower pole 3.7 centimeter hypoattenuating lesion. Both are not well characterized on this noncontrast exam. Trace amounts of free fluid along the left paracolic gutter. Colonic diverticulosis. A small left inguinal hernia containing fat is also noted. The urinary bladder is without significant finding. No suspicious bony findings. IMPRESSION: Long segment of jejunum in the left upper anterior abdomen demonstrating wall thickening. Moderate amount of free air, suggesting presence of small bowel perforation, likely related to that segment. The etiology could be infectious, inflammatory, or related to bowel ischemia, absence of IV contrast limits evaluation. Other incidental findings as above, including right inguinal hernia containing nonobstructed segment of ileum, and hypoattenuating renal cortical lesions suggestive of cysts but not fully characterized. Conclusions/Impression: Suspected stage I GAB in the setting of chronic ibuprofen and sepsis CKD III? with proteinuria (Unclear creatinine baseline at this time) -No NSAIDs -Continue IVF with LR HTN with CKD -Hold antihypertensives at this time Hyperglycemia -Check A1C -RISS prn Anemia in chronic illness -Monitor H&H Bowel perforation due to diverticulitis/ peritonitis s/p partial colectomy -Continue abx -Follow up cultures -Follow up with surgery Thank you kindly for the consultation
[2022-12-18] MEDS: ENOXAPARIN 40 MG/0.4 ML SQ SCH (16:53)
--- NOTE | 2022-12-18 18:40 | EKG ---
Test Date: 2022-12-17 Test Time: 17:40:47 Asp Web Developer: DRU MEASUREMENT RESULTS: Intervals: Rate: 88 WV: 164 QRSD: 76 QT: 354 QTc: 428 [place]: P: 67 WV: 164 QRS: 15 T: 26 INTERPRETIVE STATEMENTS: Sinus rhythm with premature atrial complexes Otherwise normal ECG No previous ECG available for comparison Electronically Signed On 12-18-22 18:38:35 PORTRAIT PAINTER by Ranjeet Benitez
[2022-12-18] MEDS ORDERED: METOPROLOL TARTRATE 5 MG/5 ML INJ IV STA ×3 (21:55→22:45)
[2022-12-18] MEDS ORDERED: AMIODARONE HCL 150 MG in D5W 100 ML IV STA (23:46)
[2022-12-18] MEDS ORDERED: AMIODARONE HCL 150 MG/3 ML INJ IV ONE (23:59)
[2022-12-19] MEDS ORDERED: AMIODARONE IN DEXTROSE,ISO-OSM 360 MG/200 ML BAG IV ONE
[2022-12-19] MEDS ORDERED: D5W 100 ML IV ONE
[2022-12-19] MEDS: AMIODARONE HCL 900 MG in Dextrose 5%-Water 482 ML IV SCH ×2 (00:09→07:47)
--- NOTE | 2022-12-19 00:29 | OP ---
Date of Procedure: 12/18/2022 Surgeon: Jose Herring MD Clinical Trials Data Coordinator: ANTHONY Lamar. Preoperative Diagnoses: Peritonitis, acute abdominal pain, perforated viscus, hypotension. Postoperative Diagnoses: Peritonitis, acute abdominal pain, perforated viscus, hypotension, perforat ed diverticulitis. Procedures: Emergent exploratory laparotomy with partial descending colon colectomy and colostomy cr eation. Ebl: Less than 100 cc. Specimen: A part of the mid descending colon. Findings: Peritonitis with gross fecal contamination of the abdomen. Bowel perforation located in m id descending colon. Anesthesia: General. Complications: None. Drains: PEARL #10 x2 and the wound packed wet-to-dry. Indications: This is a case of a 77-year-old patient who came emergently with an acute abdomen. The patient's CAT scan revealed there is some obstruction caused by ileus due to possible enteritis and free air in the abdomen. The etiology of that cannot be determined at that moment, so we offered mary rgent exploratory laparotomy with possible bowel resection, possible ostomy with benefits, alternativ es, and risks including, but not limited to infection, bleeding, damage to adjacent structures, anest hesia complication, abscess, WI, and even . He also understands this may not relieve the sympto ms. He might need more than one surgical intervention. He understood, signed a consent. Procedure In Detail: Patient was brought to the operating room, placed in supine position. Anesthes ia was induced without complication. Abdominal area was prepped and draped in a sterile fashion. A time-out was called. Midline incision was made all the way down to fascia. Fascia was opened and we had fecal contamination of the abdomen with a lot of fluid there. We did profuse irrigation in the abdomen until clean. Then, we started to run the small bowel, but we did not see any opening or perf oration of the small bowel. There were a lot of fibrin present there, probably from the contaminatio n in that region. Then, we looked at the area of the stomach. Once again, they looked distended and NG tube was placed. Then, there was no perforation we could see in that area. The duodenum was ins pected once again, no perforation. Then, after that, we went into the large bowel. We went to ascen ding colon and then we went to mid transverse colon. We noticed what it looked like diverticulum susanna allison perforated with secretion coming through it. So, we obtained carefully proximal and distal cont rol. We opened the white lines of Toldt, preserved the ureters, transected proximal and distal makin g sure the ureters were protected at all times. I took that segment out. We defunctionalized the re st of the colon. This is the mid descending colon and patient is very obese, a lot of fat present in that area. The abdominal wall was so thick that I cannot even bring the ostomy in a safe fashion th rough the skin. I will have to mobilize the entire splenic flexure up to transverse colon to be able to even have a colostomy in this luis, because this is a short segment and because the abdomen is so thick, that I need several inches just to be able to put it through. The patient is once again in a life-threatening situation, so we have to make the decision at that moment to do a loop transverse co lostomy. We created an opening just to the left of the midline. We were able to place the transvers e colon through that area, put a loop underneath and that at least bypassed this area until he is med ically stable to be able to undergo more surgery that may require more resection of that at the ascen ding colon, since we noted there was still diverticulum in that area up to the splenic flexure. At t hat moment, I proceeded to irrigate the area once again. So the loop ileostomy will help decompress the distal part of the transverse colon and also the proximal part of it. Profuse irrigation was don e. We made sure the NG tube is in place. Then, after that, we proceeded to close the fascia with #2 nylon in a running fashion from the upper and lower point in the middle. The area was profusely irr igated and packed with wet-to-dry dressing. Then, we proceeded to make sure the colostomy. We opene d the colostomy and broke the ostomy with the help of 0 chromic. Once again, we have a skyler underneat h and we secured the skyler, so it does not come out. The intestines in that area looks nice and pink. We put the colostomy bag in that area. Patient tolerated the procedure well. Sponge count and inst rument counts were correct. Patient was sent to ICU in critical condition. /VIOLETTE Voice ID: [id number] Report ID: [id number]
[2022-12-19] MEDS: MORPHINE 4 MG/ML SYR IV PRN ×5 (00:50→22:38)
[2022-12-19] MEDS: PIPER TAZO 3.375 GM in NA CHLORIDE 0.9% 100 ML IV SCH ×3 (01:03→16:45)
[2022-12-19 04:56] LABS: Absolute Lymphocytes (CBC) 1.1 K/uL (0.7-4.9); Hematocrit 34.6 % (39.6-49.0); Lymphocytes % 8.4 % (15.3-44.8); MCV 87.2 fL (80-100); MPV 7.7 fL (7.6-11.3); RBC Red Blood Cell Count 3.97 M/uL (4.33-5.43)
[2022-12-19 05:05] LABS: Magnesium 1.6 mg/dL (1.6-2.4); Phosphorus 2.2 mg/dL (2.5-4.9); Potassium 3.8 mmol/L (3.5-5.1); Uric Acid 4.3 mg/dL (3.5-7.2)
[2022-12-19] MEDS: Ringers Lactate 1,000 ML IV SCH ×3 (05:22→18:46)
[2022-12-19] MEDS: METOPROLOL TARTRATE 5 MG/5 ML INJ IV STA ×2 (06:20→06:30)
[2022-12-19 06:31] LABS: Urine Bacteria None Seen /HPF (<20); Urine Bilirubin NEGATIVE (Negative); Urine Blood 3+ (Negative); Urine Clarity Turbid (Clear); Urine Color Yellow (Yellow); Urine Glucose NEGATIVE (Negative); Urine Mucus Slight /HPF (None Seen); Urine Protein 1+ (Negative); Urine Urobilinogen Normal (Normal); Urine WBC Clump Occasional /HPF (None Seen)
[2022-12-19 06:57] LABS: UR PROTEIN 141.5 mg/dL (<11.9)
[2022-12-19] MEDS ORDERED: DIGOXIN 0.25 MG/ML AMP IV SCH (09:00)
[2022-12-19] MEDS ORDERED: ADENOSINE 6 MG/ 2ML VIAL IV ONE ×2 (11:43→11:44)
--- NOTE | 2022-12-19 12:50 | EKG ---
Test Date: 2022-12-18 Test Time: 22:04:32 Consultant Teacher: RT-O MEASUREMENT RESULTS: Intervals: Rate: 152 WI: QRSD: 80 QT: 286 QTc: 454 [place]: P: WI: QRS: 5 T: 78 INTERPRETIVE STATEMENTS: Atrial fibrillation with rapid ventricular response Nonspecific ST and T wave abnormality, probably digitalis effect Abnormal ECG Compared to ECG 12/17/2022 17:40:47 ST (T wave) deviation now present Sinus rhythm no longer present Atrial premature complex(es) no longer present Electronically Signed On 12-19-22 12:49:07 SUPERVISOR GARAGE by Ranjeet Benitez
--- NOTE | 2022-12-19 13:17 | PN ---
Subjective: The patient is lying in ICU 7 with atrial fibrillation, heart rate of 130. Denies any c hest pain, back pain, abdominal pain. No problems with antibiotic. Objective: Vital Signs: Reviewed. Lungs: Basal crackles. Heart: S1, S2. Regular. Abdomen: Bowel sounds present. Surgical wound noted. Laboratory Data: WBC down to 13,000, hemoglobin 11.4, platelets are 127. Chemistry shows BUN of 27, creatinine 1.29, down from 2. The patient is currently on Zosyn. Assessment And Plan: Status post small bowel perforation and surgical repair. The patient's leukocy tosis is improving. Atrial fibrillation with rapid heart rate, rapid ventricular response, leukocyto sis improving, diverticulitis, peritonitis, sepsis. Continue vancomycin and cefepime. We will follo w the patient closely. Continue Zosyn. No other recommendation at this time. NF/MODL Voice ID: [id number] Report ID: [id number]
--- NOTE | 2022-12-19 14:11 | PN ---
Date of Progress Note: 12/19/2022 Subjective: Status post bowel perforation with gross fecal contamination, peritonitis, enteritis, co litis, renal insufficiency, who went for emergent laparotomy, bowel resection, and ostomy. The patie nt is doing better. He has good spirits. He is oriented x3. He is having full conversation with me . NG tube is minimal. He heard some sounds, but not air yet. Midline incision has still been addre ssed. He still has some issues from the cardiac standpoint and blood pressure. Medical doctors are working on that. Objective: Chest: Clear. Abdomen: Intact surgical site. Ostomy viable, but not functional yet. PEARL clear. Extremities: Good capillary refill. No calf tenderness. No Homans signs. Laboratory Data: Blood work; improved WBC count from 20 to 13. Also his creatinine came from 2.6 to 1.2. Plan: From the surgical standpoint, we have few suggestions. We are going to remove his NG tube fro m him. It is not doing much at this moment. We are not going to advance diet yet because we are afr aid that may just stay on his stomach and may be a problem for aspiration, but hopefully by tomorrow, we will start to give him some liquids. Ambulation and out of bed are important, physical Therapy i s working on that. From the wound care of mid abdomen, we will order a wound VAC. We will follow e patient with you. RENAN/VIOLETTE Voice ID: [id number] Report ID: [id number]
[2022-12-19] MEDS: ENOXAPARIN 40 MG/0.4 ML SQ SCH (16:45)
--- NOTE | 2022-12-19 18:32 | CON ---
Date of Consultation: 12/19/2022 Reason For Consultation: Atrial fibrillation with rapid ventricular response. History Of Present Illness: This is a 77-year-old male with history of hypertension, who presented t o the emergency room with acute abdomen and perforated bowel, status post surgery. Post surgery, he sustained a rapid ventricular rate, was interpreted as atrial fibrillation. He was started on amioda lisbeth drip, received multiple doses of metoprolol. Heart rate is still in the 130s, but he has no sujatha st pain or shortness of breath with that. Past Medical History: Hypertension. Medications: Refer to reconciliation sheet for detailed list. Allergies: NO KNOWN DRUG ALLERGIES. Family History: No premature coronary artery disease or cancer. Social History: He does not smoke or drink. Does not use any drugs. Review of Systems: All systems reviewed and they were negative except what mentioned in HPI. Physical Examination: Vital Signs: Reviewed. Head and Neck: Pupils are equal, reactive to light. Intact eye movements. No JVD. No cervical lym phadenopathy. Neck is supple. Thyroid is not enlarged. Lungs: Clear to auscultation bilaterally. No rhonchi, wheezing, or crackles. No accessory muscle u se. Heart: Regular rate and rhythm. No extra sounds. Abdomen: Soft, nontender. Bowel sounds positive. No organomegaly. No masses or hernia. No rigidi ty or rebound. Extremities: No clubbing or cyanosis. Intact pulses. 1+ edema bilaterally. Neurologic: Alert, awake, oriented x3. No acute focal deficits appreciated. Investigations: BUN 27, creatinine 1.29, and NT-proBNP is 2808. TSH is 1.77. Assessment And Recommendations: 1.Atrial flutter with rapid ventricular response. I gave the patient adenosine to slow down the hea rt rate and it was clearly atrial flutter, hence the difficulty controlling the heart rate. Continue on IV amiodarone as the patient cannot take medications by mouth at 0.5 mg/minute and we will plan f or LOLA-guided cardioversion tomorrow morning. 2.Hypertension. Blood pressure is controlled. Continue to monitor. SR/MODL Voice ID: [id number] Report ID: [id number]
--- NOTE | 2022-12-19 20:17 | P.PN ---
Subjective Date of Service: 12/19/22 Chief Complaint: Bowel Perforation, peritonitis, gross fecal contamination POD # 1 emergent exploratory laparotomy, partial colectomy, and colostomy formation. Overnight, he developed atrial flutter with rapid ventricular response. He received 3 rounds of metoprolol and was started on an amiodarone drip; however, he remained in RVR. This morning, he was given digoxin and Cardiology was consulted. He reports that he feels well. He denies any chest pain, palpitations, or shortness of breath. Review of Systems 10-point ROS is otherwise unremarkable Gastrointestinal: Abdominal Pain, Distention Physical Examination - Vital Signs Temperature: 98.9 F Blood Pressure: 129/82 Pulse: 135 Respirations: 18 Pulse Ox (%): 95 Assessment And Plan - Plan - Physical Exam General: Alert, In no apparent distress, Oriented x3 HEENT: Atraumatic, EOMI, Sclerae nonicteric. NG tube in place with gastric output. Neck: JVD not distended Respiratory: Clear to auscultation bilaterally, Normal air movement Cardiovascular: No edema, Regular rate/rhythm, No murmurs Gastrointestinal: Hypoactive, Other (ostomy in mid-left abdomen with minimal stool output, 2 PEARL drains noted), Tenderness (minimal, generalized) Musculoskeletal: No clubbing Integumentary: No rashes Neurological: Normal speech, Normal affect # Small Bowel (Jejunum) Perforation with Peritonitis s/p Emergent Exploratory Laparotomy, Partial Colectomy, and Colostomy Formation # Bilateral Inguinal Hernias - CT abdomen/pelvis = "long segment of jejunum in the left upper anterior abdomen demonstrating wall thickening. Moderate amount of free air, suggesting presence of small bowel perforation, likely related to that segment. The etiology could be infectious, inflammatory, or related to bowel ischemia, absence of IV contrast limits evaluation. Other incidental findings as above, including right inguinal hernia containing nonobstructed segment of ileum, and hypoattenuating renal cortical lesions suggestive of cysts but not fully characterized." - General Surgery consulted and he was evaluated by Dr. Nima juarez - S/P emergent exploratory laparotomy, partial colectomy, and colostomy formation (12/17/2022) - Continue piperacillin-tazobactam - Diet per Surgery - PRN pain control # Atrial Flutter with Rapid Ventricular Response His [id number] = 3 (HTN=1, Age>75=2), which would typically warrant anticoagulation. However, will defer to Cardiology and Surgery teams - Consulted Cardiology and spoke with Dr. Benitez - recommendations appreciated - Continue amiodarone drip - Plan for LOLA-DCCV tomorrow morning # Possible Severe Sepsis secondary to Intra-Abdominal Infection (Peritonitis due to Bowel Perforation) # Possible Urinary Tract Infection He met sepsis criteria based on HR > 90 bpm, RR > 20 breaths/min, and WBC > 12,000 and the suspected source is intra-abdominal. Severe sepsis is suspected due to concern for tissue hypoperfusion/organ dysfunction based on creatinine >2.0 mg/dL (without ESRD) and lactic acid > 2 mmol/L. - Infectious Diseases consulted and spoke with Dr. Sauer - recommendations appreciated - Sepsis order set was initiated - Lactate trend: 2.3 -> 1.6 - Blood cultures x 2 drawn - Broad spectrum antibiotics started: Piperacillin-Tazobactam - In regards to fluids: - 30 mL/kg of IV fluids was not administered given SBP > 90, MAP > 65, lactic acid < 4, and blood pressure responded to lesser volume # Acute Kidney Injury suspect due to Severe Sepsis # Right Renal Cyst (2.9 cm) # Left Renal Cyst (3.7 cm) # Microscopic Hematuria - Nephrology consulted - recommendations appreciated - Creatinine = 2.60 -> 2.00 -> 1.29 (baseline creatinine unknown) - Urinalysis = trace ketones, positive nitrite, 510 RBCs, 2050 WBCs, > hyaline casts, 1+ protein - IV fluids per Nephrology - Monitor creatinine and urine output - If worsening, obtain renal ultrasound - Renally dose medications # Hypertension - Hold home anti-hypertensives given concern for severe sepsis Cristian Serrano M.D.
[2022-12-19] MEDS ORDERED: Ringers Lactate 1,000 ML IV SCH (22:01)
--- NOTE | 2022-12-19 22:08 | P.PN ---
Date of Service: 12/19/22 Vital Signs Temp Pulse Resp BP Pulse Ox 98.9 F 135 H 18 129/82 95 12/19/22 20:22 12/19/22 20:22 12/19/22 20:22 12/19/22 20:22 12/19/22 20:22 Medications Enoxaparin Sodium (Enoxaparin 40 Mg/0.4 Ml) 40 mg SQ DAILY 5 PM [facility] Last Admin: 12/19/22 16:45 Dose: 40 mg Piperacillin Sod/Tazobactam (Sod 3.375 gm/ Sodium Chloride) 100 mls @ 25 mls/hr IV Q8HR [facility]; Protocol Last Admin: 12/19/22 16:45 Dose: 100 mls Amiodarone HCl 900 mg/ (Dextrose) 500 mls @ 0 mls/hr IV CONT [facility]; Protocol Last Admin: 12/19/22 07:47 Dose: 500 mls Lactated Ringer's (Lactated Ringers) 1,000 mls @ 100 mls/hr IV .Q10H [facility] Morphine Sulfate (Morphine 4 Mg/Ml Syr) 4 mg IV Q2H PRN PRN Reason: Pain scale 5-7 (Moderate) Last Admin: 12/19/22 16:48 Dose: 4 mg Ondansetron HCl (Ondansetron 4 Mg/2 Ml Vial) 4 mg IV Q6HP PRN PRN Reason: NAUSEA / VOMITING Sodium Chloride (Flush Normal Saline 10 Ml) 10 ml IV BID [facility] Last Admin: 12/19/22 08:45 Dose: 10 ml Microbiology Results 12/17/22 21:30 Clean Catch Urine [place] Count - Preliminary No growth. 12/17/22 21:30 Clean Catch Urine - Preliminary No growth. Assessment/ Plan: Nephrology Mild dyspnea No chest pain Feeling better today No acute events overnight Vitals, medications, blood work and imaging reviewed in the chart. General: In no apparent distress, Oriented x3, Cooperative HEENT: Atraumatic Neck: Supple Respiratory: Clear to auscultation bilaterally Cardiovascular: No edema, Regular rate/rhythm Gastrointestinal: Non-distended, Tenderness Musculoskeletal: No clubbing, No contractures Integumentary: No rashes, No cyanosis Neurological: Normal speech Urinary: Reynoso catheter Laboratory Data (last 24 hrs) 12/17/22 18:40: Sodium 137, Potassium 4.2, BUN 39 H, Creatinine 2.60 H, Glucose 184 H, Magnesium 1.7, Total Bilirubin 0.8, AST 29, ALT 20, Alkaline Phosphatase 68, Lipase 32 12/17/22 17:44: PT 15.3 H, INR 1.39 12/17/22 17:44: WBC 20.80 H*, Hgb 13.6, Hct 40.2, Plt Count 296 Imagings Data: EXAM DESCRIPTION: [facility] Single View12/17/2022 6:05 pm CLINICAL HISTORY: ABDOMINAL DISTENTION COMPARISON: No comparisons TECHNIQUE: Portable AP view of the chest. FINDINGS: Blunting of both costophrenic angles, which may relate to decreased i nspiratory effort, small effusions, or atelectasis. No pneumothorax. The cardiomediastinal contours are unremarkable. IMPRESSION: Blunting of both costophrenic angles, which may relate to decreased inspiratory effort, small effusions, or atelectasis. EXAM DESCRIPTION: CT - Abdomen Pelvis Wo Contrast - 12/17/2022 8:27 pm CLINICAL HISTORY: Abdominal distention. Left-sided abdominal pain. Nausea COMPARISON: None. TECHNIQUE: Axial thin cut CT imaging of the abdomen and pelvis was performed without IV contrast. Multiplanar reformats were generated and reviewed. All CT scans are performed using dose optimization technique as appropriate and may include automated exposure control or mA/KV adjustment according to patient size. FINDINGS: Absence of IV contrast limits evaluation. Bibasilar dependent atelectatic changes. Moderate amount of free air throughout the anterior abdomen, without significant abdominal distention. A long segment of jejunum in the left upper anterior abdomen demonstrates wall thickening with adjacent fat stranding, and probably reflects an inflamed segment. Remainder of the small bowel is nondistended. A segment of ileum extends within a right inguinal hernia, with no evidence of obstruction. The liver, spleen and pancreas show no suspicious findings. Gallbladder and biliary tree are also without suspicious finding. No hydronephrosis or suspicious renal mass. No significant adrenal finding. A fluid density right renal midpole 2.9 centimeter cystic lesion is noted, as well as a left renal lower pole 3.7 centimeter hypoattenuating lesion. Both are not well characterized on this noncontrast exam. Trace amounts of free fluid along the left paracolic gutter. Colonic diverticulosis. A small left inguinal hernia containing fat is also noted. The urinary bladder is without significant finding. No suspicious bony findings. IMPRESSION: Long segment of jejunum in the left upper anterior abdomen demonstrating wall thickening. Moderate amount of free air, suggesting presence of small bowel perforation, likely related to that segment. The etiology could be infectious, inflammatory, or related to bowel ischemia, absence of IV contrast limits evaluation. Other incidental findings as above, including right inguinal hernia containing nonobstructed segment of ileum, and hypoattenuating renal cortical lesions suggestive of cysts but not fully characterized. Conclusions/Impression: Suspected stage I GAB in the setting of chronic ibuprofen, hypovolemia and sepsis CKD III? with proteinuria (Unclear creatinine baseline at this time) -No NSAIDs -Reduce IVF to 100 ml/hr Hypophosphatemia -Replete prn HTN with CKD -Hold antihypertensives at this time PreDM Hyperglycemia A1C 5.8 -RISS prn Anemia in chronic illness -Monitor H&H Bowel perforation due to diverticulitis/ peritonitis s/p partial colectomy -Continue abx -Follow up cultures -Follow up with surgery
[2022-12-20] MEDS: PIPER TAZO 3.375 GM in NA CHLORIDE 0.9% 100 ML IV SCH ×2 (01:16→09:22)
[2022-12-20 04:48] LABS: Hematocrit 34.5 % (39.6-49.0); Lymphocytes % 7.8 % (15.3-44.8); MCV 87.7 fL (80-100); MPV 7.7 fL (7.6-11.3); RBC Red Blood Cell Count 3.94 M/uL (4.33-5.43)
[2022-12-20 05:03] LABS: Magnesium 1.8 mg/dL (1.6-2.4); Phosphorus 2.2 mg/dL (2.5-4.9)
[2022-12-20] MEDS: MORPHINE 4 MG/ML SYR IV PRN ×4 (06:30→21:00)
[2022-12-20] MEDS ORDERED: METOPROLOL TARTRATE 5 MG/5 ML INJ IV ONE (07:43)
[2022-12-20] MEDS ORDERED: MIDAZOLAM HCL 10 ML ONE (07:44)
[2022-12-20] MEDS ORDERED: NA CHLORIDE 0.9% 500 ML ONE (07:44)
[2022-12-20] MEDS ORDERED: ATROPINE SULFATE 1 MG/ML INJ ONE (07:44)
[2022-12-20] MEDS ORDERED: FENTANYL CITR 100 MCG/2 ML ONE (07:44)
[2022-12-20] MEDS ORDERED: FLUMAZENIL 0.1 MG/ML (5 mL VIAL) IV ONE (07:44)
[2022-12-20] MEDS ORDERED: LIDOCAINE VISCOUS 2% SOLN 15 ML UDC ONE (07:45)
--- NOTE | 2022-12-20 07:48 | P.PN ---
Subjective Date of Service: 12/20/22 Chief Complaint: Bowel Perforation, peritonitis, gross fecal contamination Patient resting in bed with family members at the bedside. In good spirit with no major event upon examination Physical Examination - Vital Signs Temperature: 98.6 F Blood Pressure: 139/94 Pulse: 136 Respirations: 13 Pulse Ox (%): 97 - Physical Exam General: Alert, In no apparent distress, Oriented x3 Respiratory: Other (3 L NC w/ O2 Sat 97%) Cardiovascular: No edema, Normal S1 S2 Gastrointestinal: Hypoactive (LUQ colostomy bag; [address] with clear sanguineous fluid (right more than left)) Musculoskeletal: No swelling, No tenderness Integumentary: Other (abdominal surgical incision) Neurological: Normal speech, Normal tone, Normal affect Urinary: Reynoso catheter (yellow and cloudy) - Studies active medications Enoxaparin Sodium (Enoxaparin 40 Mg/0.4 Ml) 40 mg SQ DAILY 5 PM [facility] Last Admin: 12/19/22 16:45 Dose: 40 mg Piperacillin Sod/Tazobactam (Sod 3.375 gm/ Sodium Chloride) 100 mls @ 25 mls/hr IV Q8HR [facility]; Protocol Last Admin: 12/20/22 01:16 Dose: 100 mls Amiodarone HCl 900 mg/ (Dextrose) 500 mls @ 0 mls/hr IV CONT [facility]; Protocol Last Admin: 12/19/22 07:47 Dose: 500 mls Lactated Ringer's (Lactated Ringers) 1,000 mls @ 100 mls/hr IV .Q10H [facility] Last Admin: 12/20/22 01:15 Dose: 1,000 mls Morphine Sulfate (Morphine 4 Mg/Ml Syr) 4 mg IV Q2H PRN PRN Reason: Pain scale 5-7 (Moderate) Last Admin: 12/20/22 06:30 Dose: 4 mg Ondansetron HCl (Ondansetron 4 Mg/2 Ml Vial) 4 mg IV Q6HP PRN PRN Reason: NAUSEA / VOMITING Sodium Chloride (Flush Normal Saline 10 Ml) 10 ml IV BID [facility] Last Admin: 12/20/22 01:15 Dose: 10 ml Microbiology Data (last 24 hrs): Microbiology 12/17/22 21:30 Clean Catch Urine [place] Count - Preliminary No growth. 12/17/22 21:30 Clean Catch Urine - Preliminary No growth. Assessment And Plan - Current Problems (Diagnosis) (1) Small bowel perforation Plan: Cultures: - 12/18 BC x 2: Negative - 12/17 Peritoneal fluid: Culture pending - 12/17 Abdominal fluid: Pseudomonas aeruginosa, susceptible to Levofloxacin, Ciprofloxacin, Meropenem, Tobramycin, and Gentamycin - 12/17 UC: No growth Antibiotics: - Current on IV Zosyn (12/17- ) Recommendations: - Stop Zosyn - Switch to IV Meropenem for now - ID will recommend antibiotics drug of choice when peritoneal fluid culture is available 12/18 Dr. Herring had emergent exploratory laparotomy, partial colectomy, colostomy creation (2) Peritonitis Plan: Secondary to bowel perforation Cultures: - 12/18 BC x 2: Negative - 12/17 Peritoneal fluid: Culture pending - 12/17 Abdominal fluid: Pseudomonas aeruginosa, susceptible to Levofloxacin, Ciprofloxacin, Meropenem, Tobramycin, and Gentamycin - 12/17 UC: No growth Antibiotics: - Current on IV Zosyn (12/17- ) Recommendations: - Stop Zosyn - Switch to IV Meropenem for now - ID will recommend antibiotics drug of choice when peritoneal fluid culture is available (3) UTI (urinary tract infection) Plan: Cultures: - 12/19 UA: Positive with WBC, Leukocyte esterase, RBC - 12/18 BC x 2: Negative - 12/17 Peritoneal fluid: Culture pending - 12/17 Abdominal fluid: Pseudomonas aeruginosa, susceptible to Levofloxacin, Ciprofloxacin, Meropenem, Tobramycin, and Gentamycin - 12/17 UC: No growth Antibiotics: - Current on IV Zosyn (12/17- ) Recommendations: - ID will recommend antibiotics drug of choice when urine culture is available - Plan - Diverticulitis of large intestine with perforation: Continue IV antibiotics - Small bowel perforation: Continue IV antibiotics - Peritonitis: Cultures pending - Sepsis: On IV antibiotics - Leukocytosis: Keep monitoring the trends - UTI (urinary tract infection): Continue IV antibiotics and cultures pending - Mild protein calorie malnutrition - Hypertension - Bilateral Knee Replacement - Right Hip Replacement ID will closely monitor the patient for sings of infection with fever and WBC trends Case has been discussed with Dr. Sauer N Physician Review: Patient Assessed, Agree with Above Assessment and Plan
[2022-12-20] MEDS: Ringers Lactate 1,000 ML IV SCH (09:52)
--- NOTE | 2022-12-20 11:14 | EKG ---
Test Date: 2022-12-20 Test Time: 09:05:17 Sock Liner: [place] MEASUREMENT RESULTS: Intervals: Rate: 77 NM: 154 QRSD: 80 QT: 368 QTc: 416 [place]: P: 32 NM: 154 QRS: 20 T: 21 INTERPRETIVE STATEMENTS: Normal sinus rhythm Normal ECG Compared to ECG 12/18/2022 22:04:32 Atrial fibrillation no longer present ST (T wave) deviation no longer present Electronically Signed On 12-20-22 11:13:22 HAND EMBROIDERER by Ranjeet Benitez
--- NOTE | 2022-12-20 12:57 | ECHO ---
HEIGHT: 5 ft 9 in WEIGHT: 216 lb 1.6 oz DATE OF STUDY: 12/20/[address]: Xavi Diana NP 2-DIMENSIONAL: YES M.MODE: NO DOPPLER: NO COLOR FLOW: YES TDS: NO PORTABLE: YES DEFINITY: NO BUBBLE STUDY: NO DIAGNOSIS: ATRIAL FIBRILLATION CARDIAC HISTORY: CATHERIZATION: SURGERY: PROSTHETIC VALVE: PACEMAKER: MEASUREMENTS (cm) DIASTOLIC (NORMALS) SYSTOLIC (NORMALS) IVSd (0.6-1.2) LA Diam (1.9-4.0) LVEF 55-60% LVIDd (3.5-5.7) LVIDs (2.0-3.5) %FS % LVPWd (0.6-1.2) Ao Diam (2.0-3.7) 2 DIMENSIONAL ASSESSMENT: RIGHT ATRIUM: LEFT ATRIUM: RIGHT VENTRICLE: LEFT VENTRICLE: TRICUSPID VALVE: MITRAL VALVE: PULMONIC VALVE: AORTIC VALVE: PERICARDIAL EFFUSION: AORTIC ROOT: LEFT VENTRICULAR WALL MOTION: DOPPLER/COLOR FLOW: COMMENTS: NORMAL LEFT VENTRICULAR EJECTION FRACTION NO LEFT ATRIAL APPENDAGE THROMBUS IS SEEN MILD TRICUSPID REGURGITATION TECHNOLOGIST: DEQUAN PEREZ
[2022-12-20] MEDS: AMIODARONE HCL 900 MG in Dextrose 5%-Water 482 ML IV SCH (13:01)
--- NOTE | 2022-12-20 15:16 | P.PN ---
Nephrology note (S) Brief renal note, pt remains in the ICU, seen sitting in chair, stable vitals. Vitals, medications, blood work and imaging reviewed in the chart. (prior exam) General: In no apparent distress, Oriented x3, Cooperative HEENT: Atraumatic Neck: Supple Respiratory: Clear to auscultation bilaterally Cardiovascular: No edema, Regular rate/rhythm Gastrointestinal: Non-distended, Tenderness Musculoskeletal: No clubbing, No contractures Integumentary: No rashes, No cyanosis Neurological: Normal speech Urinary: Reynoso catheter Laboratory Data (last 24 hrs) Reviewed in the EMR Conclusions/Impression: Stage I GAB multifactorial -Resolved with Cr level normalizing, lytes acceptable, phos slightly lower but > 2.0. IVF rate further lowered, d/c when diet ordered. HTN -Monitor BP range. Bowel perforation due to diverticulitis/ peritonitis s/p partial colectomy -Continue abx, can adjust any doses for improved CrCl if needed -Management per surgery He De La Rosa MD, GLENN
[2022-12-20] MEDS: ENOXAPARIN 40 MG/0.4 ML SQ SCH (16:20)
[2022-12-20] MEDS: Meropenem 1,000 MG in NA CHLORIDE 0.9% 100 ML IV SCH (16:20)
--- NOTE | 2022-12-20 17:29 | EKG ---
Test Date: 2022-12-20 Test Time: 09:03:17 Shell Grader: [place] MEASUREMENT RESULTS: Intervals: Rate: 76 NH: 152 QRSD: 74 QT: 372 QTc: 418 [place]: P: 44 NH: 152 QRS: 19 T: 22 INTERPRETIVE STATEMENTS: Sinus rhythm with premature supraventricular complexes Junctional ST depression, probably normal Borderline ECG Compared to ECG 12/18/2022 22:04:32 Atrial premature complex(es) now present Atrial fibrillation no longer present ST (T wave) deviation still present Electronically Signed On 12-20-22 17:28:30 POWER ORIGINATOR by Ranjeet Benitez
--- NOTE | 2022-12-20 18:14 | PN ---
Date of Progress Note: 12/20/2022 Subjective: Seen by bedside. Still in atrial flutter in the morning. Has no chest pain or shortnes s of breath. Still not able to take any medications by mouth. Review of Systems: No chest pain, shortness of breath, orthopnea, cough, nausea, vomiting, or diarrhea. No abdominal pa in. No dysuria, polyuria, or urinary urgency. All other systems reviewed and they were negative. Physical Examination: Vital Signs: Reviewed. Head And Neck: Pupils are equal, reactive to light. Intact eye movements. No JVD. No cervical lym phadenopathy. Neck is supple. Thyroid is not enlarged. Lungs: Clear to auscultation bilaterally. No rhonchi, wheezing, or crackles. No accessory muscle u se. Heart: Regular rate and rhythm. No extra sounds. Abdomen: Soft, nontender. Bowel sounds positive. No organomegaly. No masses or hernia. No rigidi ty or rebound. Extremities: No edema, clubbing, or cyanosis. Intact pulses. Skin: No rash. Neurologic: Alert, awake, and oriented x3. No acute focal deficits appreciated. Investigations: BUN 16, creatinine 1.01, and hemoglobin 11.5. Assessment/recommendation: 1.Atrial flutter with rapid ventricular response. I did a LOLA today. There was no LA thrombus. I did electrical cardioversion. The patient did very well. At this point, he will need to be fully an ticoagulated. If he is not able to take medications via mouth then to put him on Lovenox 1 mg/kg sub cu q.12 hours until he is able to take medications by mouth and then we will switch him to Eliquis or Xarelto. 2.Acute renal failure due to sepsis. This has resolved. 3.Elevated NT-proBNP, probably chronic diastolic heart failure. His ejection fraction is normal. SR/MODL Voice ID: [id number] Report ID: [id number]
--- NOTE | 2022-12-20 19:58 | P.PN ---
Subjective Date of Service: 12/20/22 Chief Complaint: Bowel Perforation, peritonitis, gross fecal contamination POD # 2 emergent exploratory laparotomy, partial colectomy, and colostomy formation. He is s/p LOLA-DCCV, now in normal sinus rhythm. Per Dr. Benitez, he recommended starting enoxaparin. Spoke with Dr. Herring, who has cleared him for anticoagulation. He reports that he feels well post-cardioversion. He denies any chest pain, palpitations, or shortness of breath. Review of Systems 10-point ROS is otherwise unremarkable Physical Examination - Vital Signs Temperature: 97.9 F Blood Pressure: 156/76 Pulse: 76 Respirations: 22 Pulse Ox (%): 93 - Studies Microbiology Data (last 24 hrs): 12/17/22 21:30 Clean Catch Urine [place] Count - Final No growth. 12/17/22 21:30 Clean Catch Urine - Final No growth. Assessment And Plan - Plan - Physical Exam General: Alert, In no apparent distress, Oriented x3 HEENT: Atraumatic, NG tube in place with gastric output. Neck: JVD not distended Respiratory: Clear to auscultation bilaterally, Normal air movement Cardiovascular: No edema, Regular rate/rhythm, No murmurs Gastrointestinal: Hypoactive, Other (ostomy in mid-left abdomen with minimal stool output, 2 PEARL drains noted), Tenderness (minimal, generalized) Musculoskeletal: No clubbing Integumentary: No rashes Neurological: Normal speech, Normal affect # Small Bowel (Jejunum) Perforation with Peritonitis s/p Emergent Exploratory Laparotomy, Partial Colectomy, and Colostomy Formation # Bilateral Inguinal Hernias - CT abdomen/pelvis = "long segment of jejunum in the left upper anterior abdomen demonstrating wall thickening. Moderate amount of free air, suggesting presence of small bowel perforation, likely related to that segment. The etiology could be infectious, inflammatory, or related to bowel ischemia, absence of IV contrast limits evaluation. Other incidental findings as above, i ncluding right inguinal hernia containing nonobstructed segment of ileum, and hypoattenuating renal cortical lesions suggestive of cysts but not fully characterized." - General Surgery consulted and he was evaluated by Dr. Herring - recommendations appreciated - S/P emergent exploratory laparotomy, partial colectomy, and colostomy formation (12/17/2022) - Continue piperacillin-tazobactam - Diet per Surgery - PRN pain control # Atrial Flutter with Rapid Ventricular Response His [id number] = 3 (HTN=1, Age>75=2), which would typically warrant anticoagulation. - Consulted Cardiology and spoke with Dr. Benitez - recommendations appreciated - Continue amiodarone drip - S/P LOLA-DCCV this morning, now in normal sinus rhythm - Per Dr. Benitez, start enoxaparin 1 mg/kg SQ q12hr - Spoke with Dr. Herring, who cleared him for anticoagulation # Possible Severe Sepsis secondary to Multi-Drug Resistant Pseudomonas Aeruginosa Intra-Abdominal Infection (Peritonitis due to Bowel Perforation) # Possible Urinary Tract Infection He met sepsis criteria based on HR > 90 bpm, RR > 20 breaths/min, and WBC > 12,000 and the suspected source is intra-abdominal. Severe sepsis is suspected due to concern for tissue hypoperfusion/organ dysfunction based on creatinine >2.0 mg/dL (without ESRD) and lactic acid > 2 mmol/L. - Infectious Diseases consulted and spoke with Dr. Sauer - recommendations appreciated - Sepsis order set was initiated - Lactate trend: 2.3 -> 1.6 - Blood cultures x 2 drawn - Broad spectrum antibiotics started: Piperacillin-Tazobactam -> Meropenem - In regards to fluids: - 30 mL/kg of IV fluids was not administered given SBP > 90, MAP > 65, lactic acid < 4, and blood pressure responded to lesser volume # Acute Kidney Injury suspect due to Severe Sepsis # Right Renal Cyst (2.9 cm) # Left Renal Cyst (3.7 cm) # Microscopic Hematuria - Nephrology consulted - recommendations appreciated - Creatinine = 2.60 -> 2.00 -> 1.29 -> 1.01 (baseline creatinine unknown) - Urinalysis = trace ketones, positive nitrite, 510 RBCs, 2050 WBCs, > hyaline casts, 1+ protein - IV fluids per Nephrology - Monitor creatinine and urine output - If worsening, obtain renal ultrasound - Renally dose medications # Hypertension - Hold home anti-hypertensives given concern for severe sepsis Cristian Serrano M.D.
[2022-12-20] MEDS ORDERED: ENOXAPARIN 60 MG/0.6 ML SQ ONE (20:04)
--- NOTE | 2022-12-21 00:35 | OP ---
Date of Procedure: 12/20/2022 Surgeon: LAURIE FERRER Procedures Performed: 1.Transesophageal echocardiogram. 2.A synchronized electrocardioversion using 200 joule, converting atrial flutter to normal sinus rhy [facility]. Indication: Atrial flutter with rapid heart rate, difficult to control. Description Of Procedure: After risks, benefits, and alternatives were explained, the patient agreed to the procedure and signed informed consent. At the bedside, after doing a proper time-out, we num bed the back of the throat and give 5 mg of Versed and then LOLA probe was inserted without difficulty . LOLA was done. There was no appendage thrombus. Then synchronized 200 joule electrical cardiovers ion was performed successfully converting to sinus rhythm. The patient recovered appropriately after the cardioversion and no neurological deficits. Conclusion: Successful LOLA guided electrical cardioversion to normal sinus rhythm. Plan: Continue amiodarone and start him on anticoagulation with Eliquis for Lovenox. SR/MODL Voice ID: [id number] Report ID: [id number]
[2022-12-21] MEDS: Meropenem 1,000 MG in NA CHLORIDE 0.9% 100 ML IV SCH ×3 (00:42→16:28)
[2022-12-21 04:19] LABS: Absolute Lymphocytes (CBC) 0.9 K/uL (0.7-4.9); Hematocrit 34.7 % (39.6-49.0); Lymphocytes % 8.5 % (15.3-44.8); MCV 87.9 fL (80-100); MPV 7.8 fL (7.6-11.3); RBC Red Blood Cell Count 3.95 M/uL (4.33-5.43)
[2022-12-21 04:27] LABS: Magnesium 1.9 mg/dL (1.6-2.4); Potassium 3.7 mmol/L (3.5-5.1)
[2022-12-21] MEDS: MORPHINE 4 MG/ML SYR IV PRN ×3 (04:29→20:26)
[2022-12-21] MEDS: Ringers Lactate 1,000 ML IV SCH (04:39)
[2022-12-21] MEDS: ENOXAPARIN 100 MG/ML SYR SQ SCH ×2 (08:13→20:27)
[2022-12-21] MEDS ORDERED: KCL 20 MEQ/100 mL IVPB 20 MEQ/100 ML BAG IV SCH (09:00)
--- NOTE | 2022-12-21 10:28 | P.PN ---
Subjective Date of Service: 12/21/22 Chief Complaint: Bowel Perforation, peritonitis, gross fecal contamination Patient has been transferred to step-down unit and sitting in the chair with at the bedside. In good spirit with no major event upon examination Physical Examination - Vital Signs Temperature: 97.2 F Blood Pressure: 172/79 Pulse: 69 Respirations: 18 Pulse Ox (%): 94 - Physical Exam General: Alert, In no apparent distress, Oriented x3 Respiratory: Crackles/rales (basal b/l), Other (3 L NC) Cardiovascular: Normal S1 S2, Edema (left arm +1 due to IV infiltration) Gastrointestinal: Hypoactive (LUQ colostomy bag; [address] with clear sanguineous fluid (right more than left)) Musculoskeletal: No swelling, No tenderness Integumentary: Other (abdominal surgical incision) Neurological: Normal speech, Normal tone, Sensation intact, Normal affect Urinary: Reynoso catheter (yellow and cloudy) - Studies current medications Enoxaparin Sodium (Enoxaparin 100 Mg/Ml Syr) 100 mg 1 mg/kg (100 mg) SQ Q12HR [facility] Last Admin: 12/21/22 08:13 Dose: 100 mg Amiodarone HCl 900 mg/ (Dextrose) 500 mls @ 0 mls/hr IV CONT [facility]; Protocol Last Admin: 12/20/22 13:01 Dose: 500 mls Lactated Ringer's (Lactated Ringers) 1,000 mls @ 50 mls/hr IV .Q20H [facility] Last Admin: 12/21/22 04:39 Dose: 1,000 mls Meropenem 1,000 mg/ Sodium (Chloride) 100 mls @ 200 mls/hr IV Q8HR [facility] Last Admin: 12/21/22 08:13 Dose: 100 mls Potassium Chloride (Kcl 20 Meq/100 Ml Ivpb (Premix)) 20 meq in 100 mls @ 50 mls/hr IV 1X [facility]; Protocol Stop: 12/21/22 10:59 Last Admin: 12/21/22 09:30 Dose: 100 mls Morphine Sulfate (Morphine 4 Mg/Ml Syr) 4 mg IV Q2H PRN PRN Reason: Pain scale 5-7 (Moderate) Last Admin: 12/21/22 09:24 Dose: 4 mg Ondansetron HCl (Ondansetron 4 Mg/2 Ml Vial) 4 mg IV Q6HP PRN PRN Reason: NAUSEA / VOMITING Sodium Chloride (Flush Normal Saline 10 Ml) 10 ml IV BID [facility] Last Admin: 12/21/22 09:31 Dose: 10 ml Microbiology Data (last 24 hrs): 12/17/22 21:30 Clean Catch Urine [place] Count - Final No growth. 12/17/22 21:30 Clean Catch Urine - Final No growth. Assessment And Plan - Current Problems (Diagnosis) (1) Small bowel perforation Plan: Cultures: - 12/18 BC x 2: Negative - 12/17 Peritoneal fluid: Culture pending - 12/17 Abdominal fluid: Pseudomonas aeruginosa, susceptible to Levofloxacin, Ciprofloxacin, Meropenem, Tobramycin, and Gentamycin - 12/17 UC: No growth Antibiotics: - Had IV Zosyn (12/17-12/20) - Current on Meropenem (12/20- ) Recommendations: - Continue IV Meropenem for total of 4 weeks - ID will recommend antibiotics drug of choice when peritoneal fluid culture is available 12/18 Dr. Herring had emergent exploratory laparotomy, partial colectomy, colostomy creation (2) Peritonitis Plan: Secondary to bowel perforation Cultures: - 12/18 BC x 2: Negative - 12/17 Peritoneal fluid: Culture pending - 12/17 Abdominal fluid: Pseudomonas aeruginosa, susceptible to Levofloxacin, Ciprofloxacin, Meropenem, Tobramycin, and Gentamycin - 12/17 UC: No growth Antibiotics: - Had IV Zosyn (12/17-12/20) - Current on Meropenem (12/20- ) Recommendations: - Continue IV Meropenem - ID will recommend antibiotics drug of choice when peritoneal fluid culture is available (3) UTI (urinary tract infection) Plan: Cultures: - 12/19 UA: Positive with WBC, Leukocyte esterase, RBC - 12/18 BC x 2: Negative - 12/17 Peritoneal fluid: Culture pending - 12/17 Abdominal fluid: Pseudomonas aeruginosa, susceptible to Levofloxacin, Ciprofloxacin, Meropenem, Tobramycin, and Gentamycin - 12/17 UC: No growth Antibiotics: - Current on IV Zosyn (12/17- ) Recommendations: - ID will recommend antibiotics drug of choice when urine culture is available - Plan - Diverticulitis of large intestine with perforation: Continue IV antibiotics f or total of 4 weeks - Small bowel perforation: Continue IV antibiotics for total of 4 weeks - Peritonitis: Cultures pending - Sepsis: On IV antibiotics - Leukocytosis: Keep monitoring the trends - UTI (urinary tract infection): Continue IV antibiotics and cultures pending - Mild protein calorie malnutrition - Hypertension - Bilateral Knee Replacement - Right Hip Replacement ID will closely monitor the patient for sings of infection with fever and WBC trends Case has been discussed with Dr. Sauer, N Physician Review: Patient Assessed, Agree with Above Assessment and Plan
--- NOTE | 2022-12-21 13:54 | P.PN ---
Subjective Date of Service: 12/21/22 Chief Complaint: Bowel Perforation, peritonitis, gross fecal contamination POD # 3 emergent exploratory laparotomy, partial colectomy, and colostomy formation. He appears much improved, and he reports that his abdominal pain is waxing/waning. Dr. Herring has cleared him to start a clear liquid diet. He denies any chest pain, palpitations, or shortness of breath. Review of Systems 10-point ROS is otherwise unremarkable Gastrointestinal: Abdominal Pain Physical Examination - Vital Signs Temperature: 97.4 F Blood Pressure: 172/87 Pulse: 84 Respirations: 18 Pulse Ox (%): 97 - Studies Microbiology Data (last 24 hrs): 12/17/22 21:30 Clean Catch Urine [place] Count - Final No growth. 12/17/22 21:30 Clean Catch Urine - Final No growth. Assessment And Plan - Plan - Physical Exam General: Alert, In no apparent distress, Oriented x3 HEENT: Atraumatic Neck: JVD not distended Respiratory: Clear to auscultation bilaterally, Normal air movement Cardiovascular: No edema, Regular rate/rhythm, No murmurs Gastrointestinal: Hypoactive, Other (ostomy in mid-left abdomen with minimal stool output, 2 PEARL drains noted), Tenderness (minimal, generalized) Musculoskeletal: No clubbing Integumentary: No rashes Neurological: Normal speech, Normal affect # Small Bowel (Jejunum) Perforation with Peritonitis s/p Emergent Exploratory Laparotomy, Partial Colectomy, and Colostomy Formation # Bilateral Inguinal Hernias - CT abdomen/pelvis = "long segment of jejunum in the left upper anterior abdomen demonstrating wall thickening. Moderate amount of free air, suggesting presence of small bowel perforation, likely related to that segment. The etiology could be infectious, inflammatory, or related to bowel ischemia, absence of IV contrast limits evaluation. Other incidental findings as above, including right inguinal hernia containing nonobstructed segment of ileum, and hypoattenuating renal cortical lesions suggestive of cysts but not fully characterized." - General Surgery consulted and he was evaluated by Dr. Herring - recommendations appreciated - S/P emergent exploratory laparotomy, partial colectomy, and colostomy formation (12/17/2022) - Continue meropenem - Diet per Surgery - started clear liquid diet - PRN pain control # Atrial Flutter with Rapid Ventricular Response s/p LOLA-DCCV - resolved His [id number] = 3 (HTN=1, Age>75=2), which would typically warrant anticoagulation. - Consulted Cardiology and spoke with Dr. Benitez - recommendations appreciated - Continue amiodarone drip - Switch to PO once tolerating diet - S/P LOLA-DCCV on 12/20/22, now in normal sinus rhythm - Per Dr. Benitez, start enoxaparin 1 mg/kg SQ q12hr - Spoke with Dr. Herring, who cleared him for anticoagulation # Possible Severe Sepsis secondary to Streptococcus Anginosus and Multi-Drug Resistant Pseudomonas Aeruginosa Intra-Abdominal Infection (Peritonitis due to Bowel Perforation) - improved # Possible Urinary Tract Infection He met sepsis criteria based on HR > 90 bpm, RR > 20 breaths/min, and WBC > 12,000 and the suspected source is intra-abdominal. Severe sepsis is suspected due to concern for tissue hypoperfusion/organ dysfunction based on creatinine >2.0 mg/dL (without ESRD) and lactic acid > 2 mmol/L. - Infectious Diseases consulted and spoke with Dr. Sauer - recommendations appreciated - Sepsis order set was initiated - Lactate trend: 2.3 -> 1.6 - Blood cultures x 2 drawn - Broad spectrum antibiotics started: Piperacillin-Tazobactam -> Meropenem - In regards to fluids: - 30 mL/kg of IV fluids was not administered given SBP > 90, MAP > 65, lactic acid < 4, and blood pressure responded to lesser volume # KDIGO Stage II Acute Kidney Injury suspect due to Severe Sepsis - resolved # Right Renal Cyst (2.9 cm) # Left Renal Cyst (3.7 cm) # Microscopic Hematuria - Nephrology consulted and spoke with Dr. Morgan - recommendations appreciated - Creatinine = 2.60 -> 2.00 -> 1.29 -> 1.01 -> 0.95 (baseline creatinine unknown) - Urinalysis = trace ketones, positive nitrite, 510 RBCs, 2050 WBCs, > hyaline casts, 1+ protein - IV fluids per Nephrology - Monitor creatinine and urine output - If worsening, obtain renal ultrasound - Renally dose medications # Hypertension - Hold home anti-hypertensives given concern for severe sepsis # Deconditioning - Consult PT/OT Cristian Serrano M.D.
[2022-12-21] MEDS ORDERED: HYDRALAZINE HCL 20 MG/ML VIAL IV PRN (15:45)
--- NOTE | 2022-12-21 18:17 | PN ---
Date of Progress Note: 12/21/2022 Subjective: Seen by bedside. Doing clinically well. No palpitations. Review of Systems: No chest pain, shortness of breath, orthopnea, cough. No nausea, vomiting, diarrhea. All other syst ems reviewed and they were negative. Physical Examination: Vital Signs: Reviewed. Head and Neck: Pupils are equal, reactive to light. Intact eye movements. No JVD. No cervical lym phadenopathy. Neck is supple. Thyroid is not enlarged. Lungs: Clear to auscultation bilaterally. No rhonchi, wheezing, or crackles. No accessory muscle u se. Heart: Irregular. No extra sounds. Abdomen: Soft, nontender. Bowel sounds positive. No organomegaly. No masses or hernia. No rigidi ty or rebound. Extremities: No clubbing or cyanosis. Intact pulses. Skin: No rash. Neurologic: Alert, awake, oriented x3. No acute focal deficits appreciated. Investigations: BUN 14, creatinine 0.95, and hemoglobin 11.3. Assessment And Recommendations: 1.Atrial flutter with rapid ventricular response, status post cardioversion. Continue amiodarone an d continue Lovenox. When he is able to take medications by mouth to switch to amiodarone 200 mg by m outh twice a day and to start Toprol-XL 25 mg daily and Eliquis 5 mg twice a day. 2.Acute renal failure due to sepsis. This is resolved. 3.Elevated NT-proBNP with normal ejection fraction. This is a diastolic dysfunction and he appears to be euvolemic. SR/MODL Voice ID: [id number] Report ID: [id number]
--- NOTE | 2022-12-21 21:55 | P.PN ---
Date of Service: 12/21/22 Vital Signs Temp Pulse Resp BP Pulse Ox 97.6 F 84 18 165/85 H 97 12/21/22 20:00 12/21/22 20:00 12/21/22 20:26 12/21/22 20:00 12/21/22 20:26 Medications Enoxaparin Sodium (Enoxaparin 100 Mg/Ml Syr) 100 mg 1 mg/kg (100 mg) SQ Q12HR [facility] Last Admin: 12/21/22 20:27 Dose: 100 mg Hydralazine HCl (Hydralazine Hcl 20 Mg/Ml Vial) 5 mg IV Q6HP PRN PRN Reason: FOR SBP >160 [facility] Last Admin: 12/21/22 16:25 Dose: 5 mg Amiodarone HCl 900 mg/ (Dextrose) 500 mls @ 0 mls/hr IV CONT TAMMIE; Protocol Last Admin: 12/20/22 13:01 Dose: 500 mls Meropenem 1,000 mg/ Sodium (Chloride) 100 mls @ 200 mls/hr IV Q8HR [facility] Last Admin: 12/21/22 16:28 Dose: 100 mls Morphine Sulfate (Morphine 4 Mg/Ml Syr) 4 mg IV Q2H PRN PRN Reason: Pain scale 5-7 (Moderate) Last Admin: 12/21/22 20:26 Dose: 4 mg Ondansetron HCl (Ondansetron 4 Mg/2 Ml Vial) 4 mg IV Q6HP PRN PRN Reason: NAUSEA / VOMITING Sodium Chloride (Flush Normal Saline 10 Ml) 10 ml IV BID [facility] Last Admin: 12/21/22 20:27 Dose: 10 ml Microbiology Results 12/17/22 21:30 Clean Catch Urine [place] Count - Final No growth. 12/17/22 21:30 Clean Catch Urine - Final No growth. Assessment/ Plan: Nephrology No dyspnea No chest pain Working with PT No acute events overnight Vitals, medications, blood work and imaging reviewed in the chart. General: In no apparent distress, Oriented x3, Cooperative HEENT: Atraumatic Neck: Supple Respiratory: Clear to auscultation bilaterally Cardiovascular: No edema, Regular rate/rhythm Gastrointestinal: Non-distended, Tenderness Musculoskeletal: No clubbing, No contractures Integumentary: No rashes, No cyanosis Neurological: Normal speech Urinary: [place] catheter Laboratory Data (last 24 hrs) 12/17/22 18:40: Sodium 137, Potassium 4.2, BUN 39 H, Creatinine 2.60 H, Glucose 184 H, Magnesium 1.7, Total Bilirubin 0.8, AST 29, ALT 20, Alkaline Phosphatase 68, Lipase 32 12/17/22 17:44: PT 15.3 H, INR 1.39 12/17/22 17:44: WBC 20.80 H*, Hgb 13.6, Hct 40.2, Plt Count 296 Imagings Data: EXAM DESCRIPTION: RADChest Single View12/17/2022 6:05 pm CLINICAL HISTORY: ABDOMINAL DISTENTION COMPARISON: No comparisons TECHNIQUE: Portable AP view of the chest. FINDINGS: Blunting of both costophrenic angles, which may relate to decreased inspiratory effort, small effusions, or atelectasis. No pneumothorax. The cardiomediastinal contours are unremarkable. IMPRESSION: Blunting of both costophrenic angles, which may relate to decreased inspiratory effort, small effusions, or atelectasis. EXAM DESCRIPTION: CT - Abdomen Pelvis Wo Contrast - 12/17/2022 8:27 pm CLINICAL HISTORY: Abdominal distention. Left-sided abdominal pain. Nausea COMPARISON: None. TECHNIQUE: Axial thin cut CT imaging of the abdomen and pelvis was performed without IV contrast. Multiplanar reformats were generated and reviewed. All CT scans are performed using dose optimization technique as appropriate and may include automated exposure control or mA/KV adjustment according to patient size. FINDINGS: Absence of IV contrast limits evaluation. Bibasilar dependent atelectatic changes. Moderate amount of free air throughout the anterior abdomen, without significant abdominal distention. A long segment of jejunum in the left upper anterior abdomen demonstrates wall thickening with adjacent fat stranding, and probably reflects an inflamed segment. Remainder of the small bowel is nondistended. A segment of ileum extends within a right inguinal hernia, with no evidence of obstruction. The liver, spleen and pancreas show no suspicious findings. Gallbladder and biliary tree are also without suspicious finding. No hydronephrosis or suspicious renal mass. No significant adrenal finding. A fluid density right renal midpole 2.9 centimeter cystic lesion is noted, as well as a left renal lower pole 3.7 centimeter hypoattenuating lesion. Both are not well characterized on this noncontrast exam. Trace amounts of free fluid along the left paracolic gutter. Colonic diverticulosis. A small left inguinal hernia containing fat is also noted. The urinary bladder is without significant finding. No suspicious bony findings. IMPRESSION: Long segment of jejunum in the left upper anterior abdomen demonstrating wall thickening. Moderate amount of free air, suggesting presence of small bowel perforation, likely related to that segment. The etiology could be infectious, inflammatory, or related to bowel ischemia, absence of IV contrast limits evaluation. Other incidental findings as above, including right inguinal hernia containing nonobstructed segment of ileum, and hypoattenuating renal cortical lesions suggestive of cysts but not fully characterized. Conclusions/Impression: Stage II GAB in the setting of chronic ibuprofen, hypovolemia and sepsis CKD III? with proteinuria (Unclear creatinine baseline at this time) -No NSAIDs -Discontinue IVF Hypophosphatemia -Replete prn HTN with CKD -Start Coreg BID -Start Lisinopril BID PreDM Hyperglycemia A1C 5.8 -RISS prn Anemia in chronic illness -Monitor H&H Bowel perforation due to diverticulitis/ peritonitis s/p partial colectomy -Continue abx -Follow up with surgery -Advance diet as tolerated
[2022-12-21] MEDS ORDERED: AMIODARONE HCL 150 MG/3 ML INJ IV ONE (22:31)
[2022-12-21] MEDS ORDERED: NA CHLORIDE 0.9% 500 ML ONE (22:31)
[2022-12-21] MEDS: lisinopriL 5 MG TAB PO SCH (23:07)
[2022-12-21] MEDS: carvediloL 6.25 MG TAB PO SCH (23:08)
[2022-12-22] MEDS: Meropenem 1,000 MG in NA CHLORIDE 0.9% 100 ML IV SCH ×3 (01:00→16:11)
[2022-12-22 04:01] LABS: Absolute Lymphocytes (CBC) 0.9 K/uL (0.7-4.9); Hematocrit 36.9 % (39.6-49.0); Lymphocytes % 7.9 % (15.3-44.8); MCV 87.1 fL (80-100); MPV 7.5 fL (7.6-11.3); RBC Red Blood Cell Count 4.24 M/uL (4.33-5.43)
[2022-12-22 04:31] LABS: Magnesium 1.8 mg/dL (1.6-2.4); Phosphorus 2.3 mg/dL (2.5-4.9); Potassium 3.9 mmol/L (3.5-5.1); Uric Acid 5.9 mg/dL (3.5-7.2)
[2022-12-22] MEDS: POTASS/SODIUM PHOSPHATE 1 PKT POWD.PACK PO SCH ×3 (08:05→10:21)
[2022-12-22] MEDS ORDERED: MAGNESIUM SULFATE 1 gm IVPB 1 GM/100 ML BAG IV ONE (09:00)
[2022-12-22] MEDS: carvediloL 6.25 MG TAB PO SCH ×2 (09:13→23:07)
[2022-12-22] MEDS: lisinopriL 5 MG TAB PO SCH ×2 (09:14→23:07)
[2022-12-22] MEDS: ENOXAPARIN 100 MG/ML SYR SQ SCH ×2 (09:14→23:07)
[2022-12-22] MEDS: MORPHINE 4 MG/ML SYR IV PRN (11:24)
--- NOTE | 2022-12-22 14:16 | P.PN ---
Subjective Date of Service: 12/20/22 Chief Complaint: Bowel Perforation, peritonitis, gross fecal contamination Subjective: Improving Review of Systems Respiratory: Shortness of Breath (no) Cardiovascular: As per HPI Gastrointestinal: Nausea (nnnnnnno), Vomiting (no) Physical Examination - Vital Signs Temperature: 97.3 F Blood Pressure: 153/77 Pulse: 87 Respirations: 18 Pulse Ox (%): 98 - Physical Exam General: Alert, In no apparent distress, Oriented x3 HEENT: Atraumatic Neck: Supple Respiratory: Clear to auscultation bilaterally Cardiovascular: Normal pulses Gastrointestinal: Soft and benign (ostomy viable. Midline, intactt surgical site) Assessment And Plan - Plan wound VAC d/c ngt incentive spirometry DVT prophylaxis NPO IV abx Physician Review: Patient Assessed, Agree with Above Assessment and Plan
--- NOTE | 2022-12-22 14:18 | P.PN ---
Subjective Date of Service: 12/22/22 Chief Complaint: Bowel Perforation, peritonitis, gross fecal contamination Subjective: Ambulating, Improving Review of Systems Eyes: Unremarkable ENT: Unremarkable Respiratory: Unremarkable Gastrointestinal: Nausea (nnnnnno), Vomiting (no), No Distention Physical Examination - Vital Signs Temperature: 97.3 F Blood Pressure: 153/77 Pulse: 87 Respirations: 18 Pulse Ox (%): 98 - Physical Exam General: Alert, In no apparent distress, Oriented x3 HEENT: Atraumatic, PERRLA, EOMI Neck: Supple Respiratory: Normal air movement Cardiovascular: No edema, Normal pulses Gastrointestinal: Hypoactive, Soft and benign (intact surgical site with woud VAC) Musculoskeletal: No clubbing, No swelling, No erythema, No tenderness, No warmth Integumentary: No rashes, No breakdown Neurological: Normal speech Assessment And Plan - Plan wound VAC advance to full liquid incentive spirometry DVT prophylaxis d/c portillo if ok with medicine IV abx Physician Review: Patient Assessed, Agree with Above Assessment and Plan
--- NOTE | 2022-12-22 17:14 | PN ---
Subjective: The patient lying in bed. No new acute event. Chart reviewed. Complains of abdominal discomfort and nausea. No vomiting. According to staff, the patient has a small amount of bowels in his colostomy bag. Objective: Vital Signs: Temperature 97, pulse 76, respiration 18, blood pressure 162/77. Lungs: Basal crackles. Heart: S1, S2. Regular. Abdomen: Mildly distended. Bowel sounds present. Tenderness in all 4 quadrants. Extremities: No edema. Laboratory Data: Show WBC 11, hemoglobin 12.3, platelets 286. Chemistry shows BUN . Microbiology Data: Pseudomonas and Staph anginosus. The patient currently on meropenem. Assessment And Plan: Status post small bowel perforation, sepsis, urinary tract infection with leuko cytosis. Continue current treatment. Consider long-term acute care. Continue supportive care. We w ill follow the patient as needed. NF/MODL Voice ID: [id number] Report ID: [id number]
[2022-12-22 17:23] LABS: Albumin 2.2 g/dL (3.4-5.0); Bilirubin Total 1.5 mg/dL (0.2-1.0); Protein, Total 6.2 g/dL (6.4-8.2)
--- NOTE | 2022-12-22 18:41 | PN ---
Date of Progress Note: 12/22/2022 Subjective: Seen by bedside, doing clinically well. No tachycardia. Review of Systems: No chest pain, shortness of breath, orthopnea, or cough. No nausea, vomiting, or diarrhea. All othe r systems reviewed and they were negative. Physical Examination: Vital Signs: Reviewed. Head And Neck: Pupils are equal and reactive to light. Intact eye movements. No JVD. No cervical lymphadenopathy. Neck is supple. Thyroid is not enlarged. Lungs: Clear to auscultation bilaterally. No rhonchi, wheezing, or crackles. No accessory muscle u se. Heart: Regular rate and rhythm. No extra sounds. Abdomen: Soft, nontender. Bowel sounds positive. No organomegaly. No masses or hernia. No rigidi ty or rebound. Extremities: No edema. No clubbing or cyanosis. Intact pulses. Skin: No rash. Neuro: Alert, awake, and oriented x3. No acute focal deficits appreciated. Investigations: BUN 13, creatinine 0.83, and his hemoglobin is 12.3. Assessment/recommendation: 1.Atrial flutter with rapid ventricular response. He is still in sinus. Continue current managemen t. Titrate the Coreg to 12.5 mg twice a day and change to p.o. amiodarone 200 mg twice a day. If he requires IV amiodarone because he cannot take medications by mouth then check liver enzymes daily wh ile he is on IV amiodarone. 2.Hypertension. Blood pressure is elevated. Adjust the Coreg dose as above. SR/MODL Voice ID: [id number] Report ID: [id number]
--- NOTE | 2022-12-22 19:19 | P.PN ---
Subjective Date of Service: 12/22/22 Chief Complaint: Bowel Perforation, peritonitis, gross fecal contamination POD # 4 emergent exploratory laparotomy, partial colectomy, and colostomy formation. He continues to improve daily. Dr. Herring has cleared him to advance to a full liquid diet. He denies any chest pain, palpitations, or shortness of breath. He continues to work well with PT. Review of Systems 10-point ROS is otherwise unremarkable Gastrointestinal: Abdominal Pain (improved) Physical Examination - Vital Signs Temperature: 97 F Blood Pressure: 136/77 Pulse: 92 Respirations: 19 Pulse Ox (%): 92 Assessment And Plan - Plan - Physical Exam General: Alert, In no apparent distress, Oriented x3 HEENT: Atraumatic Neck: JVD not distended Respiratory: Clear to auscultation bilaterally, Normal air movement Cardiovascular: No edema, Regular rate/rhythm, No murmurs Gastrointestinal: Hypoactive, Other (ostomy in mid-left abdomen with minimal stool output, 2 PEARL drains noted), Tenderness (minimal) Musculoskeletal: No clubbing Integumentary: No rashes Neurological: Normal speech, Normal affect # Small Bowel (Jejunum) Perforation with Peritonitis s/p Emergent Exploratory Laparotomy, Partial Colectomy, and Colostomy Formation # Bilateral Inguinal Hernias - CT abdomen/pelvis = "long segment of jejunum in the left upper anterior abdomen demonstrating wall thickening. Moderate amount of free air, suggesting presence of small bowel perforation, likely related to that segment. The etiology could be infectious, inflammatory, or related to bowel ischemia, absence of IV contrast limits evaluation. Other incidental findings as above, including right inguinal hernia containing nonobstructed segment of ileum, and hypoattenuating renal cortical lesions suggestive of cysts but not fully characterized." - General Surgery consulted and he was evaluated by Dr. Herring - recommendations appreciated - S/P emergent exploratory laparotomy, partial colectomy, and colostomy form ation (12/17/2022) - Continue meropenem - Diet per Surgery - advanced to full liquid diet - PRN pain control # Atrial Flutter with Rapid Ventricular Response s/p LOLA-DCCV - resolved His [id number] = 3 (HTN=1, Age>75=2), which would typically warrant anticoagulation. - Consulted Cardiology and spoke with Dr. Benitez - recommendations appreciated - Switched to PO amiodarone - S/P LOLA-DCCV on 12/20/22, now in normal sinus rhythm - Per Dr. Benitez, start enoxaparin 1 mg/kg SQ q12hr - Spoke with Dr. Herring, who cleared him for anticoagulation # Possible Severe Sepsis secondary to Streptococcus Anginosus and Multi-Drug Resistant Pseudomonas Aeruginosa Intra-Abdominal Infection (Peritonitis due to Bowel Perforation) - improved # Possible Urinary Tract Infection He met sepsis criteria based on HR > 90 bpm, RR > 20 breaths/min, and WBC > 12,000 and the suspected source is intra-abdominal. Severe sepsis is suspected due to concern for tissue hypoperfusion/organ dysfunction based on creatinine >2.0 mg/dL (without ESRD) and lactic acid > 2 mmol/L. - Infectious Diseases consulted and spoke with Dr. Sauer - recommendations appreciated - Sepsis order set was initiated - Lactate trend: 2.3 -> 1.6 - Blood cultures x 2 drawn - Broad spectrum antibiotics started: Piperacillin-Tazobactam -> Meropenem - In regards to fluids: - 30 mL/kg of IV fluids was not administered given SBP > 90, MAP > 65, lactic acid < 4, and blood pressure responded to lesser volume # KDIGO Stage II Acute Kidney Injury suspect due to Severe Sepsis - resolved # Right Renal Cyst (2.9 cm) # Left Renal Cyst (3.7 cm) # Microscopic Hematuria - Nephrology consulted and spoke with Dr. Morgan - recommendations appreciated - Creatinine = 2.60 -> 2.00 -> 1.29 -> 1.01 -> 0.95 (baseline creatinine unknown) - Urinalysis = trace ketones, positive nitrite, 510 RBCs, 2050 WBCs, > hyaline casts, 1+ protein - IV fluids per Nephrology - Monitor creatinine and urine output - If worsening, obtain renal ultrasound - Renally dose medications # Hypertension - Hold home anti-hypertensives given concern for severe sepsis # Deconditioning - Consult PT/OT Cristian Serrano M.D.
[2022-12-22] MEDS: AMIODARONE HCL 200 MG TAB PO SCH (23:07)
[2022-12-23] MEDS: Meropenem 1,000 MG in NA CHLORIDE 0.9% 100 ML IV SCH ×3 (02:01→16:18)
[2022-12-23 05:27] LABS: Hematocrit 38.2 % (39.6-49.0); Lymphocytes % 8.1 % (15.3-44.8); MCV 87.1 fL (80-100); MPV 7.6 fL (7.6-11.3); RBC Red Blood Cell Count 4.38 M/uL (4.33-5.43)
[2022-12-23 05:44] LABS: Albumin 2.1 g/dL (3.4-5.0); Bilirubin Direct 0.6 mg/dL (0-0.2); Bilirubin Total 1.2 mg/dL (0.2-1.0); Magnesium 2.1 mg/dL (1.6-2.4); Potassium 3.8 mmol/L (3.5-5.1); Protein, Total 6.1 g/dL (6.4-8.2)
[2022-12-23] MEDS: AMIODARONE HCL 200 MG TAB PO SCH ×2 (08:38→21:19)
[2022-12-23] MEDS: ENOXAPARIN 100 MG/ML SYR SQ SCH ×2 (08:38→21:19)
[2022-12-23] MEDS: lisinopriL 5 MG TAB PO SCH ×2 (08:38→21:19)
[2022-12-23] MEDS: carvediloL 6.25 MG TAB PO SCH ×2 (08:39→21:19)
[2022-12-23] MEDS: ACETAMINOPHEN 325 MG TABLET PO PRN (08:39)
[2022-12-23] MEDS ORDERED: POTASSIUM PHOS IN 0.9 % NACL 15 MMOL/250 ML BAG IV ONE (10:00)
--- NOTE | 2022-12-23 11:52 | P.PN ---
Subjective Date of Service: 12/23/22 Chief Complaint: Bowel Perforation, peritonitis, gross fecal contamination POD # 5 emergent exploratory laparotomy, partial colectomy, and colostomy formation. He tolerated the full liquid diet, without any issues. He was advanced to a GI soft diet per Dr. Herring. He denies any chest pain, palpitations, or shortness of breath. He continues to work well with PT. Tentative plan for inpatient rehab. Review of Systems 10-point ROS is otherwise unremarkable Gastrointestinal: Abdominal Pain (improving) Physical Examination - Vital Signs Temperature: 97.3 F Blood Pressure: 154/74 Pulse: 73 Respirations: 16 Pulse Ox (%): 97 Assessment And Plan - Plan - Physical Exam General: Alert, In no apparent distress, Oriented x3 HEENT: Atraumatic Neck: JVD not distended Respiratory: Clear to auscultation bilaterally, Normal air movement Cardiovascular: No edema, Regular rate/rhythm, No murmurs Gastrointestinal: Hypoactive, Other (ostomy in mid-left abdomen with minimal stool output, 2 PEARL drains noted), Tenderness (minimal) Musculoskeletal: No clubbing Integumentary: No rashes Neurological: Normal speech, Normal affect # Small Bowel (Jejunum) Perforation with Peritonitis s/p Emergent Exploratory Laparotomy, Partial Colectomy, and Colostomy Formation # Bilateral Inguinal Hernias - CT abdomen/pelvis = "long segment of jejunum in the left upper anterior abdomen demonstrating wall thickening. Moderate amount of free air, suggesting presence of small bowel perforation, likely related to that segment. The etiology could be infectious, inflammatory, or related to bowel ischemia, absence of IV contrast limits evaluation. Other incidental findings as above, including right inguinal hernia containing nonobstructed segment of ileum, and hypoattenuating renal cortical lesions suggestive of cysts but not fully characterized." - General Surgery consulted and he was evaluated by Dr. Herring - recommendations appreciated - S/P emergent exploratory laparotomy, partial colectomy, and colostomy formation (12/17/2022) - Continue meropenem - Diet per Surgery - advanced to GI soft diet - PRN pain control # Atrial Flutter with Rapid Ventricular Response s/p LOLA-DCCV - resolved His [id number] = 3 (HTN=1, Age>75=2), which would typically warrant anticoagulation. - Consulted Cardiology and spoke with Dr. Benitez - recommendations appreciated - Switched to PO amiodarone - S/P LOLA-DCCV on 12/20/22, now in normal sinus rhythm - Per Dr. Benitez, start enoxaparin 1 mg/kg SQ q12hr - Spoke with Dr. Herring, who cleared him for anticoagulation - At discharge, plan to switch to apixaban # Possible Severe Sepsis secondary to Streptococcus Anginosus and Multi-Drug Resistant Pseudomonas Aeruginosa Intra-Abdominal Infection (Peritonitis due to Bowel Perforation) - improved # Possible Urinary Tract Infection He met sepsis criteria based on HR > 90 bpm, RR > 20 breaths/min, and WBC > 12,000 and the suspected source is intra-abdominal. Severe sepsis is suspected due to concern for tissue hypoperfusion/organ dysfunction based on creatinine >2.0 mg/dL (without ESRD) and lactic acid > 2 mmol/L. - Infectious Diseases consulted and spoke with Dr. Sauer - recommendations appreciated - Continue meropenem x 4 weeks (end date: 01/17/2023) - Sepsis order set was initiated - Lactate trend: 2.3 -> 1.6 - Blood cultures x 2 drawn - Broad spectrum antibiotics started: Piperacillin-Tazobactam -> Meropenem - In regards to fluids: - 30 mL/kg of IV fluids was not administered given SBP > 90, MAP > 65, lactic acid < 4, and blood pressure responded to lesser volume # KDIGO Stage II Acute Kidney Injury suspect due to Severe Sepsis - resolved # Right Renal Cyst (2.9 cm) # Left Renal Cyst (3.7 cm) # Microscopic Hematuria - Nephrology consulted and spoke with Dr. Morgan - recommendations appreciated - Creatinine = 2.60 -> 2.00 -> 1.29 -> 1.01 -> 0.95 (baseline creatinine unknown) - Urinalysis = trace ketones, positive nitrite, 510 RBCs, 2050 WBCs, > hyaline casts, 1+ protein - IV fluids per Nephrology - Monitor creatinine and urine output - If worsening, obtain renal ultrasound - Renally dose medications # Hypertension - Continue carvedilol, lisinopril # Deconditioning - Consult PT/OT Cristian Serrano M.D.
--- NOTE | 2022-12-23 17:08 | RAD REPORT ---
EXAM DESCRIPTION: US - UPPER EXTREMITY VENOUS UNILATE - 12/23/2022 4:39 pm CLINICAL HISTORY: Swelling, redness, right upper extremity. Swelling at IV site COMPARISON: None. TECHNIQUE: Real-time sonographic evaluation of the right upper extremity deep venous system was perf ormed. FINDINGS: Normal compressibility, flow augmentation, phasic flow and spontaneous flow is identified in the visualized right upper scratched extremity deep venous system. Nonvisualization of the right c ephalic vein limits evaluation. Subcutaneous edema/ swelling noted along the forearm. No intraluminal filling defects seen. IMPRESSION: No evidence of right upper extremity deep venous thrombosis.
[2022-12-23] MEDS: MORPHINE 4 MG/ML SYR IV PRN (17:31)
--- NOTE | 2022-12-23 21:44 | P.PN ---
Date of Service: 12/23/22 Vital Signs Temp Pulse Resp BP Pulse Ox 97.3 F 72 16 142/65 H 99 12/23/22 16:00 12/23/22 21:19 12/23/22 16:00 12/23/22 21:19 12/23/22 16:00 Medications Acetaminophen (Acetaminophen 325 Mg Tablet) 650 mg PO Q6H PRN PRN Reason: Pain scale 5-7 (Moderate) Last Admin: 12/23/22 08:39 Dose: 650 mg Amiodarone HCl (Amiodarone Hcl 200 Mg Tab) 200 mg PO BID [facility] Last Admin: 12/23/22 21:19 Dose: 200 mg Carvedilol (Carvedilol 6.25 Mg Tab) 6.25 mg PO BID [facility] Last Admin: 12/23/22 21:19 Dose: 6.25 mg Enoxaparin Sodium (Enoxaparin 100 Mg/Ml Syr) 100 mg 1 mg/kg (100 mg) SQ Q12HR [facility] Last Admin: 12/23/22 21:19 Dose: 100 mg Hydralazine HCl (Hydralazine Hcl 20 Mg/Ml Vial) 5 mg IV Q6HP PRN PRN Reason: FOR SBP >160 MMHG Last Admin: 12/21/22 16:25 Dose: 5 mg Meropenem 1,000 mg/ Sodium (Chloride) 100 mls @ 200 mls/hr IV Q8HR [facility] Last Admin: 12/23/22 16:18 Dose: 100 mls Lisinopril (Lisinopril 5 Mg Tab) 10 mg PO BID [facility] Morphine Sulfate (Morphine 4 Mg/Ml Syr) 4 mg IV Q2H PRN PRN Reason: Pain scale 8-10 (Severe) Last Admin: 12/23/22 17:31 Dose: 4 mg Ondansetron HCl (Ondansetron 4 Mg/2 Ml Vial) 4 mg IV Q6HP PRN PRN Reason: NAUSEA / VOMITING Last Admin: 12/22/22 10:31 Dose: 4 mg Sodium Chloride (Flush Normal Saline 10 Ml) 10 ml IV BID [facility] Last Admin: 12/23/22 21:20 Dose: 10 ml Microbiology Results 12/17/22 21:30 Clean Catch Urine [place] Count - Final No growth. 12/17/22 21:30 Clean Catch Urine - Final No growth. Assessment/ Plan: Nephrology No dyspnea No chest pain Working with PT No acute events overnight Vitals, medications, blood work and imaging reviewed in the chart. General: In no apparent distress, Oriented x3, Cooperative HEENT: Atraumatic Neck: Supple Respiratory: Clear to auscultation bilaterally Cardiovascular: No edema, Regular rate/rhythm Gastrointestinal: Non-distended, Tenderness Musculoskeletal: No clubbing, No contractures Integumentary: No rashes, No cyanosis Neurological: Normal speech Urinary: Reynoso catheter Laboratory Data (last 24 hrs) 12/17/22 18:40: Sodium 137, Potassium 4.2, BUN 39 H, Creatinine 2.60 H, Glucose 184 H, Magnesium 1.7, Total Bilirubin 0.8, AST 29, ALT 20, Alkaline Phosphatase 68, Lipase 32 12/17/22 17:44: PT 15.3 H, INR 1.39 12/17/22 17:44: WBC 20.80 H*, Hgb 13.6, Hct 40.2, Plt Count 296 Imagings Data: [facility] 6:05 pm CLINICAL HISTORY: ABDOMINAL DISTENTION COMPARISON: No comparisons TECHNIQUE: Portable AP view of the chest. FINDINGS: Blunting of both costophrenic angles, which may relate to decreased inspiratory effort, small effusions, or atelectasis. No pneumothorax. The cardiomediastinal contours are unremarkable. IMPRESSION: Blunting of both costophrenic angles, which may relate to decreased inspiratory effort, small effusions, or atelectasis. EXAM DESCRIPTION: CT - Abdomen Pelvis Wo Contrast - 12/17/2022 8:27 pm CLINICAL HISTORY: Abdominal distention. Left-sided abdominal pain. Nausea COMPARISON: None. TECHNIQUE: Axial thin cut CT imaging of the abdomen and pelvis was performed without IV contrast. Multiplanar reformats were generated and reviewed. All CT scans are performed using dose optimization technique as appropriate and may include automated exposure control or mA/KV adjustment according to patient size. FINDINGS: Absence of IV contrast limits evaluation. Bibasilar dependent atelectatic changes. Moderate amount of free air throughout the anterior abdomen, without significant abdominal distention. A long segment of jejunum in the left upper anterior abdomen demonstrates wall thickening with adjacent fat stranding, and probably reflects an inflamed segment. Remainder of the small bowel is nondistended. A segment of ileum extends within a right inguinal hernia, with no evidence of obstruction. The liver, spleen and pancreas show no suspicious findings. Gallbladder and biliary tree are also without suspicious finding. No hydronephrosis or suspicious renal mass. No significant adrenal finding. A fluid density right renal midpole 2.9 centimeter cystic lesion is noted, as well as a left renal lower pole 3.7 centimeter hypoattenuating lesion. Both are not well characterized on this noncontrast exam. Trace amounts of free fluid along the left paracolic gutter. Colonic diverticulosis. A small left inguinal hernia containing fat is also noted. The urinary bladder is without significant finding. No suspicious bony findings. IMPRESSION: Long segment of jejunum in the left upper anterior abdomen demonstrating wall thickening. Moderate amount of free air, suggesting presence of small bowel perforation, likely related to that segment. The etiology could be infectious, inflammatory, or related to bowel ischemia, absence of IV contrast limits evaluation. Other incidental findings as above, including right inguinal hernia containing nonobstructed segment of ileum, and hypoattenuating renal cortical lesions suggestive of cysts but not fully characterized. Conclusions/Impression: Stage II GAB in the setting of chronic ibuprofen, hypovolemia and sepsis CKD III? with proteinuria (Unclear creatinine baseline at this time) -No NSAIDs Hypophosphatemia -Replete PO4 HTN with CKD -Continue Coreg BID -Increase Lisinopril 10 BID PreDM Hyperglycemia A1C 5.8 -RISS prn Anemia in chronic illness -Monitor H&H Bowel perforation due to diverticulitis/ peritonitis s/p partial colectomy -Continue abx -Follow up with surgery -Advance diet as tolerated
[2022-12-24] MEDS: Meropenem 1,000 MG in NA CHLORIDE 0.9% 100 ML IV SCH ×3 (00:36→17:00)
[2022-12-24 05:19] LABS: Absolute Lymphocytes (CBC) 1.1 K/uL (0.7-4.9); Hematocrit 35.5 % (39.6-49.0); MCV 86.7 fL (80-100); MPV 7.6 fL (7.6-11.3); RBC Red Blood Cell Count 4.09 M/uL (4.33-5.43)
[2022-12-24 05:36] LABS: Bilirubin Total 0.6 mg/dL (0.2-1.0); Potassium 3.8 mmol/L (3.5-5.1); Protein, Total 5.4 g/dL (6.4-8.2)
[2022-12-24] MEDS: carvediloL 6.25 MG TAB PO SCH ×2 (09:05→21:15)
[2022-12-24] MEDS: ENOXAPARIN 100 MG/ML SYR SQ SCH ×2 (09:05→21:16)
[2022-12-24] MEDS: AMIODARONE HCL 200 MG TAB PO SCH ×2 (09:06→21:16)
[2022-12-24] MEDS: lisinopriL 10 MG TAB PO SCH ×2 (09:06→21:16)
[2022-12-24] MEDS ORDERED: MORPHINE 4 MG/ML SYR IV ONE (11:25)
--- NOTE | 2022-12-24 11:29 | P.PN ---
Subjective Date of Service: 12/24/22 Chief Complaint: Bowel Perforation, peritonitis, gross fecal contamination POD # 6 emergent exploratory laparotomy, partial colectomy, and colostomy formation. He was advanced to a GI soft diet, without any issues. He reports generalized abdominal pain, but states that it is gradually improving. He denies any chest pain, palpitations, or shortness of breath. He continues to work well with PT. Tentative plan for inpatient rehab. Appreciate CM assistance. Review of Systems 10-point ROS is otherwise unremarkable Gastrointestinal: Abdominal Pain Physical Examination - Vital Signs Temperature: 97.1 F Blood Pressure: 135/68 Pulse: 93 Respirations: 16 Pulse Ox (%): 95 Assessment And Plan - Plan - Physical Exam General: Alert, In no apparent distress, Oriented x3 HEENT: Atraumatic Neck: JVD not distended Respiratory: Clear to auscultation bilaterally, Normal air movement Cardiovascular: No edema, Regular rate/rhythm, No murmurs Gastrointestinal: Normoactive bowel sounds, Other (ostomy in mid-left abdomen with minimal stool output, 2 PEARL drains noted), Tenderness (minimal, generalized) Musculoskeletal: No clubbing Integumentary: No rashes Neurological: Normal speech, Normal affect # Small Bowel (Jejunum) Perforation with Peritonitis s/p Emergent Exploratory Laparotomy, Partial Colectomy, and Colostomy Formation # Bilateral Inguinal Hernias - CT abdomen/pelvis = "long segment of jejunum in the left upper anterior abdomen demonstrating wall thickening. Moderate amount of free air, suggesting presence of small bowel perforation, likely related to that segment. The etiology could be infectious, inflammatory, or related to bowel ischemia, absence of IV contrast limits evaluation. Other incidental findings as above, including right inguinal hernia containing nonobstructed segment of ileum, and hypoattenuating renal cortical lesions suggestive of cysts but not fully characterized." - General Surgery consulted and he was evaluated by Dr. Herring - recommendations appreciated - S/P emergent exploratory laparotomy, partial colectomy, and colostomy formation (12/17/2022) - Continue meropenem - Diet per Surgery - advanced to GI soft diet - PRN pain control - switch IV morphine to PO hydrocodone-acetaminophen today # Atrial Flutter with Rapid Ventricular Response s/p LOLA-DCCV - resolved His [id number] = 3 (HTN=1, Age>75=2), which would typically warrant anticoagulation. - Consulted Cardiology and spoke with Dr. Benitez - recommendations appreciated - Switched to PO amiodarone - S/P LOLA-DCCV on 12/20/22, now in normal sinus rhythm - Per Dr. Benitez, start enoxaparin 1 mg/kg SQ q12hr - Spoke with Dr. Herring, who cleared him for anticoagulation - At discharge, plan to switch to apixaban # Severe Sepsis secondary to Streptococcus Anginosus and Multi-Drug Resistant Pseudomonas Aeruginosa Intra-Abdominal Infection (Peritonitis due to Bowel Perforation) - improved # Possible Urinary Tract Infection He met sepsis criteria based on HR > 90 bpm, RR > 20 breaths/min, and WBC > 12,000 and the suspected source is intra-abdominal. Severe sepsis is suspected due to concern for tissue hypoperfusion/organ dysfunction based on creatinine >2.0 mg/dL (without ESRD) and lactic acid > 2 mmol/L. - Infectious Diseases consulted and spoke with Dr. Sauer - recommendations appreciated - Continue meropenem x 4 weeks (end date: 01/17/2023) - Sepsis order set was initiated - Lactate trend: 2.3 -> 1.6 - Blood cultures x 2 drawn - Broad spectrum antibiotics started: Piperacillin-Tazobactam -> Meropenem - In regards to fluids: - 30 mL/kg of IV fluids was not administered given SBP > 90, MAP > 65, lactic acid < 4, and blood pressure responded to lesser volume # KDIGO Stage II Acute Kidney Injury suspect due to Severe Sepsis - resolved # Right Renal Cyst (2.9 cm) # Left Renal Cyst (3.7 cm) # Microscopic Hematuria - Nephrology consulted and spoke with Dr. Morgan - recommendations appreciated - Creatinine = 2.60 -> 2.00 -> 1.29 -> 1.01 -> 0.95 (baseline creatinine unknown) - Urinalysis = trace ketones, positive nitrite, 510 RBCs, 2050 WBCs, > hyaline casts, 1+ protein - IV fluids per Nephrology - Monitor creatinine and urine output - If worsening, obtain renal ultrasound - Renally dose medications # Hypertension - Continue carvedilol, lisinopril # Deconditioning - Consult PT/OT - Appreciate CM assistance with placement into inpatient rehab Cristian Serrano M.D.
[2022-12-24] MEDS ORDERED: MAGNESIUM OXIDE 400 MG TAB PO ONE (17:00)
[2022-12-24] MEDS: DOCUSATE NA 100 MG CAP PO SCH (21:00)
--- NOTE | 2022-12-24 22:18 | P.PN ---
Date of Service: 12/24/22 Vital Signs Temp Pulse Resp BP Pulse Ox 97.7 F 78 16 145/66 H 97 12/24/22 20:00 12/24/22 20:00 12/24/22 20:00 12/24/22 20:00 12/24/22 20:00 Medications Acetaminophen (Acetaminophen 325 Mg Tablet) 650 mg PO Q6H PRN PRN Reason: Pain scale 5-7 (Moderate) Last Admin: 12/23/22 08:39 Dose: 650 mg Hydrocodone Bitart/Acetaminophen (Hydrocodone/Apap 7.5/325 Mg Tab) 1 tab PO Q6H PRN PRN Reason: Pain scale 5-7 (Moderate) Amiodarone HCl (Amiodarone Hcl 200 Mg Tab) 200 mg PO BID [facility] Last Admin: 12/24/22 21:16 Dose: 200 mg Carvedilol (Carvedilol 6.25 Mg Tab) 6.25 mg PO BID [facility] Last Admin: 12/24/22 21:15 Dose: 6.25 mg Docusate Sodium (Docusate Na 100 Mg Cap) 100 mg PO BID [facility] Last Admin: 12/24/22 21:00 Dose: Not Given Enoxaparin Sodium (Enoxaparin 100 Mg/Ml Syr) 100 mg 1 mg/kg (100 mg) SQ Q12HR [facility] Last Admin: 12/24/22 21:16 Dose: 100 mg Hydralazine HCl (Hydralazine Hcl 20 Mg/Ml Vial) 5 mg IV Q6HP PRN PRN Reason: FOR SBP >160 MMHG Last Admin: 12/21/22 16:25 Dose: 5 mg Meropenem 1,000 mg/ Sodium (Chloride) 100 mls @ 200 mls/hr IV Q8HR [facility] Last Admin: 12/24/22 17:00 Dose: 100 mls Lisinopril (Lisinopril 10 Mg Tab) 10 mg PO BID [facility] Last Admin: 12/24/22 21:16 Dose: 10 mg Ondansetron HCl (Ondansetron 4 Mg/2 Ml Vial) 4 mg IV Q6HP PRN PRN Reason: NAUSEA / VOMITING Last Admin: 12/22/22 10:31 Dose: 4 mg Sodium Chloride (Flush Normal Saline 10 Ml) 10 ml IV BID [facility] Last Admin: 12/24/22 21:16 Dose: 10 ml Microbiology Results 12/17/22 21:30 Clean Catch Urine [place] Count - Final No growth. 12/17/22 21:30 Clean Catch Urine - Final No growth. Assessment/ Plan: Nephrology No dyspnea No chest pain Minimal BM. Improving PO. No acute events overnight Vitals, medications, blood work and imaging reviewed in the chart. General: In no apparent distress, Oriented x3, Cooperative HEENT: Atraumatic Neck: Supple Respiratory: Clear to auscultation bilaterally Cardiovascular: No edema, Regular rate/rhythm Gastrointestinal: Non-distended, Tenderness Musculoskeletal: No clubbing, No contractures Integumentary: No rashes, No cyanosis Neurological: Normal speech Urinary: Reynoso catheter Laboratory Data (last 24 hrs) 12/17/22 18:40: Sodium 137, Potassium 4.2, BUN 39 H, Creatinine 2.60 H, Glucose 184 H, Magnesium 1.7, Total Bilirubin 0.8, AST 29, ALT 20, Alkaline Phosphatase 68, Lipase 32 12/17/22 17:44: PT 15.3 H, INR 1.39 12/17/22 17:44: WBC 20.80 H*, Hgb 13.6, Hct 40.2, Plt Count 296 Imagings Data: EXAM DESCRIPTION: [facility] Single View12/17/2022 6:05 pm CLINICAL HISTORY: ABDOMINAL DISTENTION COMPARISON: No comparisons TECHNIQUE: Portable AP view of the chest. FINDINGS: Blunting of both costophrenic angles, which may relate to decreased inspiratory effort, small effusions, or atelectasis. No pneumothorax. The cardiomediastinal contours are unremarkable. IMPRESSION: Blunting of both costophrenic angles, which may relate to decreased inspiratory effort, small effusions, or atelectasis. EXAM DESCRIPTION: CT - Abdomen Pelvis Wo Contrast - 12/17/2022 8:27 pm CLINICAL HISTORY: Abdominal distention. Left-sided abdominal pain. Nausea COMPARISON: None. TECHNIQUE: Axial thin cut CT imaging of the abdomen and pelvis was performed without IV contrast. Multiplanar reformats were generated and reviewed. All CT scans are performed using dose optimization technique as appropriate and may include automated exposure control or mA/KV adjustment according to patient size. FINDINGS: Absence of IV contrast limits evaluation. Bibasilar dependent atelectatic changes. Moderate amount of free air throughout the anterior abdomen, without significant abdominal distention. A long segment of jejunum in the left upper anterior abdomen demonstrates wall thickening with adjacent fat stranding, and probably reflects an inflamed segment. Remainder of the small bowel is nondistended. A segment of ileum extends within a right inguinal hernia, with no evidence of obstruction. The liver, spleen and pancreas show no suspicious findings. Gallbladder and biliary tree are also without suspicious finding. No hydronephrosis or suspicious renal mass. No significant adrenal finding. A fluid density right renal midpole 2.9 centimeter cystic lesion is noted, as well as a left renal lower pole 3.7 centimeter hypoattenuating lesion. Both are not well characterized on this noncontrast exam. Trace amounts of free fluid along the left paracolic gutter. Colonic diverticulosis. A small left inguinal hernia containing fat is also noted. The urinary bladder is without significant finding. No suspicious bony findings. IMPRESSION: Long segment of jejunum in the left upper anterior abdomen demonstrating wall thickening. Moderate amount of free air, suggesting presence of small bowel perforation, likely related to that segment. The etiology could be infectious, inflammatory, or related to bowel ischemia, absence of IV contrast limits evaluation. Other incidental findings as above, including right inguinal hernia containing nonobstructed segment of ileum, and hypoattenuating renal cortical lesions suggestive of cysts but not fully characterized. Conclusions/Impression: Stage II GAB in the setting of chronic ibuprofen, hypovolemia and sepsis CKD III? with proteinuria (Unclear creatinine baseline at this time) -No NSAIDs Hypophosphatemia -Replete PO4 prn -Encourage nutrition HTN with CKD -Continue Coreg BID -Continue Lisinopril 10 BID PreDM Hyperglycemia A1C 5.8 -RISS prn Anemia in chronic illness -Monitor H&H Bowel perforation due to diverticulitis/ peritonitis s/p partial colectomy -Continue abx -Follow up with surgery -Advance diet as tolerated -Start Colace BID
[2022-12-25] MEDS: Meropenem 1,000 MG in NA CHLORIDE 0.9% 100 ML IV SCH ×3 (00:14→15:52)
[2022-12-25] MEDS: DOCUSATE NA 100 MG CAP PO SCH ×2 (09:00→20:47)
[2022-12-25] MEDS: AMIODARONE HCL 200 MG TAB PO SCH ×2 (09:18→20:47)
[2022-12-25] MEDS: lisinopriL 10 MG TAB PO SCH ×2 (09:18→20:49)
[2022-12-25] MEDS: ENOXAPARIN 100 MG/ML SYR SQ SCH ×2 (09:19→20:48)
[2022-12-25] MEDS: carvediloL 6.25 MG TAB PO SCH ×2 (09:19→20:47)
--- NOTE | 2022-12-25 09:48 | P.PN ---
Subjective Date of Service: 12/25/22 Chief Complaint: Bowel Perforation, peritonitis, gross fecal contamination Patient lying in bed with no major event upon examination. Waiting for his to come to assist him for breakfast Physical Examination - Vital Signs Temperature: 98.6 F Blood Pressure: 126/67 Pulse: 92 Respirations: 20 Pulse Ox (%): 97 - Physical Exam General: Alert, In no apparent distress, Oriented x3 Respiratory: Clear to auscultation bilaterally Cardiovascular: No edema, Normal S1 S2 Gastrointestinal: Hypoactive, Other (LUQ colostomy bag; [address] with clear sanguineous fluid) Musculoskeletal: No swelling, No tenderness Integumentary: Other (Midline surgical wound; LUQ colostomy bag; [address] with clear sanguineous fluid;) Neurological: Normal speech, Normal tone, Sensation intact, Normal affect - Studies current medications Acetaminophen (Acetaminophen 325 Mg Tablet) 650 mg PO Q6H PRN PRN Reason: Pain scale 5-7 (Moderate) Last Admin: 12/23/22 08:39 Dose: 650 mg Hydrocodone Bitart/Acetaminophen (Hydrocodone/Apap 7.5/325 Mg Tab) 1 tab PO Q6H PRN PRN Reason: Pain scale 5-7 (Moderate) Amiodarone HCl (Amiodarone Hcl 200 Mg Tab) 200 mg PO BID [facility] Last Admin: 12/25/22 09:18 Dose: 200 mg Carvedilol (Carvedilol 6.25 Mg Tab) 6.25 mg PO BID [facility] Last Admin: 12/25/22 09:19 Dose: 6.25 mg Docusate Sodium (Docusate Na 100 Mg Cap) 100 mg PO BID [facility] Last Admin: 12/25/22 09:00 Dose: Not Given Enoxaparin Sodium (Enoxaparin 100 Mg/Ml Syr) 100 mg 1 mg/kg (100 mg) SQ Q12HR [facility] Last Admin: 12/25/22 09:19 Dose: 100 mg Hydralazine HCl (Hydralazine Hcl 20 Mg/Ml Vial) 5 mg IV Q6HP PRN PRN Reason: FOR SBP >160 MMHG Last Admin: 12/21/22 16:25 Dose: 5 mg Meropenem 1,000 mg/ Sodium (Chloride) 100 mls @ 200 mls/hr IV Q8HR [facility] Last Admin: 12/25/22 09:18 Dose: 100 mls Lisinopril (Lisinopril 10 Mg Tab) 10 mg PO BID [facility] Last Admin: 12/25/22 09:18 Dose: 10 mg Ondansetron HCl (Ondansetron 4 Mg/2 Ml Vial) 4 mg IV Q6HP PRN PRN Reason: NAUSEA / VOMITING Last Admin: 12/22/22 10:31 Dose: 4 mg Sodium Chloride (Flush Normal Saline 10 Ml) 10 ml IV BID [facility] Last Admin: 12/25/22 09:00 Dose: 10 ml Microbiology Data (last 24 hrs): Microbiology 12/17/22 21:30 Clean Catch Urine [place] Count - Final No growth. 12/17/22 21:30 Clean Catch Urine - Final No growth. Assessment And Plan - Current Problems (Diagnosis) (1) Small bowel perforation Plan: Cultures: - 12/18 BC x 2: Negative - 12/17 Peritoneal fluid: No growth - 12/17 Abdominal fluid: Pseudomonas aeruginosa, susceptible to Levofloxacin, Ciprofloxacin, Meropenem, Tobramycin, and Gentamycin and Streptococcus anginosus Grp, - 12/17 UC: No growth Antibiotics: - Had IV Zosyn (12/17-12/20) - Current on Meropenem (12/20- ) Recommendations: - Continue IV Meropenem for total of 4 weeks 12/18 Dr. Herring had emergent exploratory laparotomy, partial colectomy, colostomy creation (2) Peritonitis Plan: Secondary to bowel perforation Cultures: - 12/18 BC x 2: Negative - 12/17 Peritoneal fluid: Culture pending - 12/17 Abdominal fluid: Pseudomonas aeruginosa, susceptible to Levofloxacin, Ciprofloxacin, Meropenem, Tobramycin, and Gentamycin and Streptococcus anginosus Grp, - 12/17 UC: No growth Antibiotics: - Had IV Zosyn (12/17-12/20) - Current on Meropenem (12/20- ) Recommendations: - Continue IV Meropenem (3) UTI (urinary tract infection) Plan: Cultures: - 12/19 UA: Positive with WBC, Leukocyte esterase, RBC - 12/18 BC x 2: Negative - 12/17 Peritoneal fluid: Culture pending - 12/17 Abdominal fluid: Pseudomonas aeruginosa, susceptible to Levofloxacin, Ciprofloxacin, Meropenem, Tobramycin, and Gentamycin and Streptococcus anginosus Grp, - 12/17 UC: No growth Antibiotics: - Had IV Zosyn (12/17-12/20) - Current on IV Meropenem Recommendations: - No extra ABX needed - Plan - Diverticulitis of large intestine with perforation: Continue IV antibiotics for total of 4 weeks - Small bowel perforation: Continue IV antibiotics for total of 4 weeks - Peritonitis: Cultures pending - Sepsis: On IV antibiotics - Leukocytosis: Keep monitoring the trends - UTI (urinary tract infection): Continue IV antibiotics and cultures pending - Mild protein calorie malnutrition - Hypertension - Bilateral Knee Replacement - Right Hip Replacement ID will closely monitor the patient for sings of infection with fever and WBC trends Case has been discussed with Dr. Sauer N Physician Review: Patient Assessed, Agree with Above Assessment and Plan
[2022-12-25] MEDS ORDERED: NA CHLORIDE 0.9% 1,000 ML ONE (14:38)
[2022-12-25] MEDS ORDERED: NA CHLORIDE 0.9% 500 ML IV ONE (14:40)
[2022-12-25] MEDS: PANTOPRAZOLE INJ 80 MG in NA CHLORIDE 0.9% 250 ML IV SCH (15:52)
[2022-12-25 15:55] LABS: Hematocrit 25.7 % (39.6-49.0); MCV 86.6 fL (80-100); MPV 7.6 fL (7.6-11.3); RBC Red Blood Cell Count 2.96 M/uL (4.33-5.43)
[2022-12-25 16:18] LABS: Bilirubin Direct 0.2 mg/dL (0-0.2); Bilirubin Total 0.4 mg/dL (0.2-1.0); Potassium 3.8 mmol/L (3.5-5.1); Protein, Total 5.3 g/dL (6.4-8.2)
--- NOTE | 2022-12-25 20:36 | P.PN ---
Date of Service: 12/25/22 Vital Signs Temp Pulse Resp BP Pulse Ox 97.4 F 92 H 16 121/56 L 97 12/25/22 15:55 12/25/22 15:55 12/25/22 15:55 12/25/22 15:55 12/25/22 15:55 Medications Acetaminophen (Acetaminophen 325 Mg Tablet) 650 mg PO Q6H PRN PRN Reason: Pain scale 5-7 (Moderate) Last Admin: 12/23/22 08:39 Dose: 650 mg Hydrocodone Bitart/Acetaminophen (Hydrocodone/Apap 7.5/325 Mg Tab) 1 tab PO Q6H PRN PRN Reason: Pain scale 5-7 (Moderate) Amiodarone HCl (Amiodarone Hcl 200 Mg Tab) 200 mg PO BID [facility] Last Admin: 12/25/22 09:18 Dose: 200 mg Carvedilol (Carvedilol 6.25 Mg Tab) 6.25 mg PO BID [facility] Last Admin: 12/25/22 09:19 Dose: 6.25 mg Docusate Sodium (Docusate Na 100 Mg Cap) 100 mg PO BID [facility] Last Admin: 12/25/22 09:00 Dose: Not Given Enoxaparin Sodium (Enoxaparin 100 Mg/Ml Syr) 100 mg 1 mg/kg (100 mg) SQ Q12HR [facility] Last Admin: 12/25/22 09:19 Dose: 100 mg Hydralazine HCl (Hydralazine Hcl 20 Mg/Ml Vial) 5 mg IV Q6HP PRN PRN Reason: FOR SBP >160 MMHG Last Admin: 12/21/22 16:25 Dose: 5 mg Meropenem 1,000 mg/ Sodium (Chloride) 100 mls @ 200 mls/hr IV Q8HR [facility] Last Admin: 12/25/22 15:52 Dose: 100 mls Pantoprazole Sodium 80 mg/ (Sodium Chloride) 250 mls @ 25 mls/hr IV Q10H [facility]; Protocol Last Admin: 12/25/22 15:52 Dose: 250 mls Lisinopril (Lisinopril 10 Mg Tab) 10 mg PO BID [facility] Last Admin: 12/25/22 09:18 Dose: 10 mg Ondansetron HCl (Ondansetron 4 Mg/2 Ml Vial) 4 mg IV Q6HP PRN PRN Reason: NAUSEA / VOMITING Last Admin: 12/22/22 10:31 Dose: 4 mg Sodium Chloride (Flush Normal Saline 10 Ml) 10 ml IV BID TAMMIE Last Admin: 12/25/22 09:00 Dose: 10 ml Microbiology Results 12/17/22 21:30 Clean Catch Urine [place] Count - Final No growth. 12/17/22 21:30 Clean Catch Urine - Final No growth. Assessment/ Plan: Nephrology No dyspnea No chest pain +PO +BM No acute events overnight Vitals, medications, blood work and imaging reviewed in the chart. General: In no apparent distress, Oriented x3, Cooperative HEENT: Atraumatic Neck: Supple Respiratory: Clear to auscultation bilaterally Cardiovascular: No edema, Regular rate/rhythm Gastrointestinal: Non-distended, Tenderness Musculoskeletal: No clubbing, No contractures Integumentary: No rashes, No cyanosis Neurological: Normal speech Urinary: Reynoso catheter Laboratory Data (last 24 hrs) 12/17/22 18:40: Sodium 137, Potassium 4.2, BUN 39 H, Creatinine 2.60 H, Glucose 184 H, Magnesium 1.7, Total Bilirubin 0.8, AST 29, ALT 20, Alkaline Phosphatase 68, Lipase 32 12/17/22 17:44: PT 15.3 H, INR 1.39 12/17/22 17:44: WBC 20.80 H*, Hgb 13.6, Hct 40.2, Plt Count 296 Imagings Data: [facility] 6[facility]05 pm CLINICAL HISTORY: ABDOMINAL DISTENTION COMPARISON: No comparisons TECHNIQUE: Portable AP view of the chest. FINDINGS: Blunting of both costophrenic angles, which may relate to decreased inspiratory effort, small effusions, or atelectasis. No pneumothorax. The cardiomediastinal contours are unremarkable. IMPRESSION: Blunting of both costophrenic angles, which may relate to decreased inspiratory effort, small effusions, or atelectasis. EXAM DESCRIPTION: CT - Abdomen Pelvis Wo Contrast - 12/17/2022 8:27 pm CLINICAL HISTORY: Abdominal distention. Left-sided abdominal pain. Nausea COMPARISON: None. TECHNIQUE: Axial thin cut CT imaging of the abdomen and pelvis was performed without IV contrast. Multiplanar reformats were generated and reviewed. All CT scans are performed using dose optimization technique as appropriate and may include automated exposure control or mA/KV adjustment according to patient size. FINDINGS: Absence of IV contrast limits evaluation. Bibasilar dependent atelectatic changes. Moderate amount of free air throughout the anterior abdomen, without significant abdominal distention. A long segment of jejunum in the left upper anterior abdomen demonstrates wall thickening with adjacent fat stranding, and probably reflects an inflamed segment. Remainder of the small bowel is nondistended. A segment of ileum extends within a right inguinal hernia, with no evidence of obstruction. The liver, spleen and pancreas show no suspicious findings. Gallbladder and biliary tree are also without suspicious finding. No hydronephrosis or suspicious renal mass. No significant adrenal finding. A fluid density right renal midpole 2.9 centimeter cystic lesion is noted, as well as a left renal lower pole 3.7 centimeter hypoattenuating lesion. Both are not well characterized on this noncontrast exam. Trace amounts of free fluid along the left paracolic gutter. Colonic diverticulosis. A small left inguinal hernia containing fat is also noted. The urinary bladder is without significant finding. No suspicious bony findings. IMPRESSION: Long segment of jejunum in the left upper anterior abdomen dem onstrating wall thickening. Moderate amount of free air, suggesting presence of small bowel perforation, likely related to that segment. The etiology could be infectious, inflammatory, or related to bowel ischemia, absence of IV contrast limits evaluation. Other incidental findings as above, including right inguinal hernia containing nonobstructed segment of ileum, and hypoattenuating renal cortical lesions suggestive of cysts but not fully characterized. Conclusions/Impression: Stage II GAB in the setting of chronic ibuprofen, hypovolemia and sepsis CKD III? with proteinuria (Unclear creatinine baseline at this time) -No NSAIDs Hypophosphatemia -Replete PO4 prn -Encourage nutrition HTN with CKD -Continue Coreg BID -Continue Lisinopril 10 BID PreDM Hyperglycemia A1C 5.8 -RISS prn Anemia in chronic illness -Monitor H&H Bowel perforation due to diverticulitis/ peritonitis s/p partial colectomy -Continue abx -Follow up with surgery -Advance diet as tolerated -Continue Colace BID
[2022-12-25] MEDS: ENSURE MAX PROTEIN 330 ML LIQUID PO SCH (20:48)
[2022-12-25 22:20] LABS: Hematocrit 22.4 % (39.6-49.0)
[2022-12-25] MEDS ORDERED: NA CHLORIDE 0.9% 250 ML IV SCH (23:45)
[2022-12-26] MEDS: Meropenem 1,000 MG in NA CHLORIDE 0.9% 100 ML IV SCH ×3 (00:01→16:41)
[2022-12-26] MEDS: PANTOPRAZOLE INJ 80 MG in NA CHLORIDE 0.9% 250 ML IV SCH ×2 (02:40→12:56)
[2022-12-26 07:46] LABS: Hematocrit 22.9 % (39.6-49.0); MCV 85.1 fL (80-100); MPV 7.7 fL (7.6-11.3); RBC Red Blood Cell Count 2.69 M/uL (4.33-5.43)
[2022-12-26 08:05] LABS: Bilirubin Total 0.3 mg/dL (0.2-1.0); Phosphorus 2.5 mg/dL (2.5-4.9); Potassium 4.4 mmol/L (3.5-5.1)
--- NOTE | 2022-12-26 08:49 | P.PN ---
Subjective Date of Service: 12/26/22 Chief Complaint: Bowel Perforation, peritonitis, gross fecal contamination Patient lying in bed with no major event upon examination Physical Examination - Vital Signs Temperature: 97.5 F Blood Pressure: 113/52 Pulse: 84 Respirations: 18 Pulse Ox (%): 98 - Physical Exam General: Alert, In no apparent distress, Oriented x3 Respiratory: Normal air movement Cardiovascular: No edema, Normal S1 S2 Gastrointestinal: Hypoactive (LUQ colostomy; 2 JPs- serous fluid on the right w sanguineous on the left) Musculoskeletal: No swelling, No tenderness Integumentary: Other (wound vac in place; LLQ colostomy; 2 JPs) Neurological: Normal speech, Normal tone, Sensation intact, Normal affect - Studies active medications Acetaminophen (Acetaminophen 325 Mg Tablet) 650 mg PO Q6H PRN PRN Reason: Pain scale 5-7 (Moderate) Last Admin: 12/23/22 08:39 Dose: 650 mg Hydrocodone Bitart/Acetaminophen (Hydrocodone/Apap 7.5/325 Mg Tab) 1 tab PO Q6H PRN PRN Reason: Pain scale 5-7 (Moderate) Amiodarone HCl (Amiodarone Hcl 200 Mg Tab) 200 mg PO BID [facility] Last Admin: 12/25/22 20:47 Dose: 200 mg Carvedilol (Carvedilol 6.25 Mg Tab) 6.25 mg PO BID [facility] Last Admin: 12/25/22 20:47 Dose: 6.25 mg Docusate Sodium (Docusate Na 100 Mg Cap) 100 mg PO BID [facility] Last Admin: 12/25/22 20:47 Dose: 100 mg Enoxaparin Sodium (Enoxaparin 100 Mg/Ml Syr) 100 mg 1 mg/kg (100 mg) SQ Q12HR [facility] Last Admin: 12/25/22 20:48 Dose: Not Given Hydralazine HCl (Hydralazine Hcl 20 Mg/Ml Vial) 5 mg IV Q6HP PRN PRN Reason: FOR SBP >160 MMHG Last Admin: 12/21/22 16:25 Dose: 5 mg Meropenem 1,000 mg/ Sodium (Chloride) 100 mls @ 200 mls/hr IV Q8HR [facility] Last Admin: 12/26/22 00:01 Dose: 100 mls Pantoprazole Sodium 80 mg/ (Sodium Chloride) 250 mls @ 25 mls/hr IV Q10H [facility]; Protocol Last Admin: 12/26/22 02:40 Dose: 250 mls Sodium Chloride (Sodium Chloride) 250 mls @ 0 mls/hr IV .Q0M [facility] Last Admin: 12/26/22 02:20 Dose: 250 mls Lisinopril (Lisinopril 10 Mg Tab) 10 mg PO BID [facility] Last Admin: 12/25/22 20:49 Dose: Not Given Ondansetron HCl (Ondansetron 4 Mg/2 Ml Vial) 4 mg IV Q6HP PRN PRN Reason: NAUSEA / VOMITING Last Admin: 12/22/22 10:31 Dose: 4 mg Sodium Chloride (Flush Normal Saline 10 Ml) 10 ml IV BID [facility] Last Admin: 12/25/22 20:48 Dose: 10 ml Microbiology Data (last 24 hrs): Microbiology 12/17/22 21:30 Clean Catch Urine [place] Count - Final No growth. 12/17/22 21:30 Clean Catch Urine - Final No growth. Assessment And Plan - Current Problems (Diagnosis) (1) Small bowel perforation Plan: Cultures: - 12/18 BC x 2: Negative - 12/17 Peritoneal fluid: No growth - 12/17 Abdominal fluid: Pseudomonas aeruginosa, susceptible to Levofloxacin, Ciprofloxacin, Meropenem, Tobramycin, and Gentamycin and Streptococcus anginosus Grp, - 12/17 UC: No growth Antibiotics: - Had IV Zosyn (12/17-12/20) - Current on Meropenem (12/20- ) Recommendations: - Continue IV Meropenem for total of 4 weeks 12/18 Dr. Herring had emergent exploratory laparotomy, partial colectomy, colostomy creation (2) Peritonitis Plan: Secondary to bowel perforation Cultures: - 12/18 BC x 2: Negative - 12/17 Peritoneal fluid: No growth - 12/17 Abdominal fluid: Pseudomonas aeruginosa, susceptible to Levofloxacin, Ciprofloxacin, Meropenem, Tobramycin, and Gentamycin and Streptococcus anginosus Grp, - 12/17 UC: No growth Antibiotics: - Had IV Zosyn (12/17-12/20) - Current on Meropenem (12/20- ) Recommendations: - Continue IV Meropenem (3) UTI (urinary tract infection) Plan: Cultures: - 12/19 UA: Positive with WBC, Leukocyte esterase, RBC - 12/18 BC x 2: Negative - 12/17 Peritoneal fluid: No growth - 12/17 Abdominal fluid: Pseudomonas aeruginosa, susceptible to Levofloxacin, Ciprofloxacin, Meropenem, Tobramycin, and Gentamycin and Streptococcus anginosus Grp, - 12/17 UC: No growth Antibiotics: - Had IV Zosyn (12/17-12/20) - Current on IV Meropenem Recommendations: - No extra ABX needed - Plan - Diverticulitis of large intestine with perforation: Continue IV antibiotics for total of 4 weeks - Small bowel perforation: Continue IV antibiotics for total of 4 weeks - Peritonitis: Cultures pending - Sepsis: On IV antibiotics - Leukocytosis: Keep monitoring the trends - UTI (urinary tract infection): Continue IV antibiotics and cultures pending - Mild protein calorie malnutrition - Hypertension - Bilateral Knee Replacement - Right Hip Replacement ID will closely monitor the patient for sings of infection with fever and WBC trends Case has been discussed with Dr. Sauer, N Physician Review: Patient Assessed, Agree with Above Assessment and Plan
[2022-12-26] MEDS: DOCUSATE NA 100 MG CAP PO SCH ×2 (09:00→21:00)
[2022-12-26] MEDS: ENOXAPARIN 100 MG/ML SYR SQ SCH ×2 (09:00→21:20)
[2022-12-26] MEDS: ENSURE MAX PROTEIN 330 ML LIQUID PO SCH ×2 (09:00→21:00)
[2022-12-26] MEDS: carvediloL 6.25 MG TAB PO SCH ×2 (09:00→21:19)
[2022-12-26] MEDS: AMIODARONE HCL 200 MG TAB PO SCH ×2 (09:02→21:21)
[2022-12-26] MEDS: lisinopriL 10 MG TAB PO SCH ×2 (09:02→21:20)
--- NOTE | 2022-12-26 10:37 | P.PN ---
Subjective Date of Service: 12/25/22 Chief Complaint: Bowel Perforation, peritonitis, gross fecal contamination Subjective: Tolerating diet, Improving, Doing well Review of Systems General: Fever (no) Respiratory: Shortness of Breath (no) Cardiovascular: Chest Pain (no) Gastrointestinal: Nausea (no) Physical Examination - Vital Signs Temperature: 97.5 F Blood Pressure: 113/52 Pulse: 84 Respirations: 18 Pulse Ox (%): 98 - Physical Exam General: Alert, In no apparent distress, Oriented x3, Cooperative HEENT: PERRLA, EOMI Neck: Supple Respiratory: Normal air movement Cardiovascular: No edema Gastrointestinal: Soft and benign (Ostomy viable and functional, midline with wound VAC), No rebound, No guarding Assessment And Plan - Plan wound VAC advance to soft incentive spirometry DVT prophylaxis IV abx per ID LTAC? Physician Review: Patient Assessed, Agree with Above Assessment and Plan
[2022-12-26] MEDS ORDERED: NA CHLORIDE 0.9% 1,000 ML IV SCH (12:00)
[2022-12-26] MEDS ORDERED: NA CHLORIDE 0.9% 250 ML ONE ×2 (12:58→16:52)
--- NOTE | 2022-12-26 13:52 | PN ---
Date of Progress Note: 12/26/2022 Mr. Up is a patient, came to us in septic shock with renal insufficiency, lung issues and periton itis with a surgical abdomen, rigid, found to have perforated mid descending colon diverticulitis wit h a lot of fecal contamination in the abdomen, taken emergently to the OR for emergent laparotomy, lo op transverse colostomy. The patient also has a ligated descending colon at the area of the mid desc ending colon, but then the proximal will drain as a fistula to the loop colostomy in the midline. Th e patient is doing great. He is tolerating diet. The ostomy is functional, is viable. He has gas, bowel movement. The midline incision has a wound VAC on it, intact. No evisceration. No cellulitis present. Bowel sounds are positive. Due to history of heart issues, he has to be put on anticoagul ation. So, we saw some decline slowly in his hemoglobin. The patient feels great. He has good appe tite, but due to that, I was contacted by the primary doctor for the possibility of upper endoscopy t o just check the pros and cons of anticoagulation. The patient has no objection to that. The patien t was encouraged to continue some diet and we will see the pros and cons of anticoagulations once the upper endoscopy is done to make sure there is no gastric ulcer. The PEARL drain that we have in the ab domen is not putting any blood out. Those are placement of that abdomen and seems to be doing okay w ith no bleeding inside the belly. RENAN/RUTHL Voice ID: [id number] Report ID: [id number]
[2022-12-26] MEDS ORDERED: Ringers Lactate 1,000 ML IV ONE (15:03)
[2022-12-26] MEDS ORDERED: EPINEPHRINE/PF 1 MG/ML AMP ONE (15:09)
[2022-12-26] MEDS ORDERED: propofoL 200 MG/20 ML VIAL IV ONE ×3 (15:09→15:23)
[2022-12-26] MEDS ORDERED: Phenylephrine HCl 10 MG/ML 1 ML VIAL ONE (15:22)
--- NOTE | 2022-12-26 17:14 | P.PN ---
Date of Service: 12/26/22 Vital Signs Temp Pulse Resp BP Pulse Ox 97.6 F 80 16 134/53 L 98 12/26/22 16:20 12/26/22 16:20 12/26/22 16:20 12/26/22 16:20 12/26/22 11:10 Medications Acetaminophen (Acetaminophen 325 Mg Tablet) 650 mg PO Q6H PRN PRN Reason: Pain scale 5-7 (Moderate) Last Admin: 12/23/22 08:39 Dose: 650 mg Hydrocodone Bitart/Acetaminophen (Hydrocodone/Apap 7.5/325 Mg Tab) 1 tab PO Q6H PRN PRN Reason: Pain scale 5-7 (Moderate) Amiodarone HCl (Amiodarone Hcl 200 Mg Tab) 200 mg PO BID [facility] Last Admin: 12/26/22 09:02 Dose: 200 mg Carvedilol (Carvedilol 6.25 Mg Tab) 6.25 mg PO BID [facility] Last Admin: 12/26/22 09:00 Dose: Not Given Docusate Sodium (Docusate Na 100 Mg Cap) 100 mg PO BID [facility] Last Admin: 12/26/22 09:00 Dose: Not Given Enoxaparin Sodium (Enoxaparin 100 Mg/Ml Syr) 100 mg 1 mg/kg (100 mg) SQ Q12HR [facility] Last Admin: 12/26/22 09:00 Dose: Not Given Hydralazine HCl (Hydralazine Hcl 20 Mg/Ml Vial) 5 mg IV Q6HP PRN PRN Reason: FOR SBP >160 MMHG Last Admin: 12/21/22 16:25 Dose: 5 mg Pantoprazole Sodium 80 mg/ (Sodium Chloride) 250 mls @ 25 mls/hr IV Q10H [facility]; Protocol Last Admin: 12/26/22 12:56 Dose: 250 mls Sodium Chloride (Sodium Chloride 0.45%) 1,000 mls @ 75 mls/hr IV .[id number] [facility] Lisinopril (Lisinopril 10 Mg Tab) 10 mg PO BID [facility] Last Admin: 12/26/22 09:02 Dose: 10 mg Ondansetron HCl (Ondansetron 4 Mg/2 Ml Vial) 4 mg IV Q6HP PRN PRN Reason: NAUSEA / VOMITING Last Admin: 12/22/22 10:31 Dose: 4 mg Sodium Chloride (Flush Normal Saline 10 Ml) 10 ml IV BID [facility] Last Admin: 12/26/22 09:00 Dose: 10 ml Microbiology Results 12/17/22 21:30 Clean Catch Urine [place] Count - Final No growth. 12/17/22 21:30 Clean Catch Urine - Final No growth. Assessment/ Plan: Nephrology No dyspnea No chest pain Blood loss overnight requiring a blood transfusion Vitals, medications, blood work and imaging reviewed in the chart. General: In no apparent distress, Oriented x3, Cooperative HEENT: Atraumatic Neck: Supple Respiratory: Clear to auscultation bilaterally Cardiovascular: No edema, Regular rate/rhythm Gastrointestinal: Non-distended, Tenderness Musculoskeletal: No clubbing, No contractures Integumentary: No rashes, No cyanosis Neurological: Normal speech Urinary: Reynoso catheter Laboratory Data (last 24 hrs) 12/17/22 18:40: Sodium 137, Potassium 4.2, BUN 39 H, Creatinine 2.60 H, Glucose 184 H, Magnesium 1.7, Total Bilirubin 0.8, AST 29, ALT 20, Alkaline Phosphatase 68, Lipase 32 12/17/22 17:44: PT 15.3 H, INR 1.39 12/17/22 17:44: WBC 20.80 H*, Hgb 13.6, Hct 40.2, Plt Count 296 Imagings Data: [facility] CLINICAL HISTORY: ABDOMINAL DISTENTION COMPARISON: No comparisons TECHNIQUE: Portable AP view of the chest. FINDINGS: Blunting of both costophrenic angles, which may relate to decreased i nspiratory effort, small effusions, or atelectasis. No pneumothorax. The cardiomediastinal contours are unremarkable. IMPRESSION: Blunting of both costophrenic angles, which may relate to decreased inspiratory effort, small effusions, or atelectasis. EXAM DESCRIPTION: CT - Abdomen Pelvis Wo Contrast - 12/17/2022 8:27 pm CLINICAL HISTORY: Abdominal distention. Left-sided abdominal pain. Nausea COMPARISON: None. TECHNIQUE: Axial thin cut CT imaging of the abdomen and pelvis was performed without IV contrast. Multiplanar reformats were generated and reviewed. All CT scans are performed using dose optimization technique as appropriate and may include automated exposure control or mA/KV adjustment according to patient size. FINDINGS: Absence of IV contrast limits evaluation. Bibasilar dependent atelectatic changes. Moderate amount of free air throughout the anterior abdomen, without significant abdominal distention. A long segment of jejunum in the left upper anterior abdomen demonstrates wall thickening with adjacent fat stranding, and probably reflects an inflamed segment. Remainder of the small bowel is nondistended. A segment of ileum extends within a right inguinal hernia, with no evidence of obstruction. The liver, spleen and pancreas show no suspicious findings. Gallbladder and biliary tree are also without suspicious finding. No hydronephrosis or suspicious renal mass. No significant adrenal finding. A fluid density right renal midpole 2.9 centimeter cystic lesion is noted, as well as a left renal lower pole 3.7 centimeter hypoattenuating lesion. Both are not well characterized on this noncontrast exam. Trace amounts of free fluid along the left paracolic gutter. Colonic diverticulosis. A small left inguinal hernia containing fat is also noted. The urinary bladder is without significant finding. No suspicious bony findings. IMPRESSION: Long segment of jejunum in the left upper anterior abdomen demonstrating wall thickening. Moderate amount of free air, suggesting presence of small bowel perforation, likely related to that segment. The etiology could be infectious, inflammatory, or related to bowel ischemia, absence of IV contrast limits evaluation. Other incidental findings as above, including right inguinal hernia containing nonobstructed segment of ileum, and hypoattenuating renal cortical lesions suggestive of cysts but not fully characterized. Conclusions/Impression: Stage II GAB in the setting of chronic ibuprofen, hypovolemia and sepsis CKD III? with proteinuria (Unclear creatinine baseline at this time) -No NSAIDs Hypernatremia -Change IVF 1/2NS Hypophosphatemia -Replete PO4 prn -Encourage nutrition HTN with CKD -Continue Coreg BID -Continue Lisinopril 10 BID PreDM Hyperglycemia A1C 5.8 -RISS prn Anemia in chronic illness Anemia due to blood loss -Monitor H&H -Transfuse PRBC as ordered -Follow up with GI for possible EGD Bowel perforation due to diverticulitis/ peritonitis s/p partial colectomy -Continue abx -Follow up with surgery -Advance diet as tolerated -Continue Colace BID
[2022-12-26] MEDS: NACHLORIDE 0.45% 1,000 ML IV SCH (21:21)
[2022-12-26] MEDS: HYDROCODONE/APAP 7.5/325 MG TAB PO PRN (21:21)
[2022-12-26] MEDS ORDERED: DIPHENHYDRAMINE 25 MG TAB/CAP PO ONE (22:48)
[2022-12-27] MEDS ORDERED: FAMOTIDINE 20 MG/2 ML VIAL IV ONE (01:31)
[2022-12-27] MEDS ORDERED: NA CHLORIDE 0.9% 500 ML IV ONE (01:31)
[2022-12-27] MEDS ORDERED: METHYLPREDNISOLONE 125 MG INJ IV ONE (01:31)
[2022-12-27] MEDS ORDERED: DIPHENHYDRAMINE 50 MG/ML VIAL IV ONE (01:31)
[2022-12-27] MEDS: PANTOPRAZOLE INJ 80 MG in NA CHLORIDE 0.9% 250 ML IV SCH ×3 (03:26→15:00)
[2022-12-27 06:51] LABS: Absolute Lymphocytes (CBC) 0.6 K/uL (0.7-4.9); Lymphocytes % 4.4 % (15.3-44.8); MCV 83.1 fL (80-100); MPV 7.2 fL (7.6-11.3); RBC Red Blood Cell Count 3.49 M/uL (4.33-5.43)
[2022-12-27 07:02] LABS: Protime INR 1.26
[2022-12-27 07:17] LABS: Albumin 2.2 g/dL (3.4-5.0); Bilirubin Total 0.9 mg/dL (0.2-1.0); Magnesium 2.2 mg/dL (1.6-2.4); Potassium 4.5 mmol/L (3.5-5.1); Protein, Total 5.6 g/dL (6.4-8.2)
[2022-12-27] MEDS: NACHLORIDE 0.45% 1,000 ML IV SCH (07:20)
[2022-12-27 08:08] LABS: Blood Morphology Comment NOT SEEN (NOT SEEN); Platelet Estimate ADEQ
--- NOTE | 2022-12-27 08:37 | P.PN ---
Subjective Date of Service: 12/27/22 Chief Complaint: Bowel Perforation, peritonitis, gross fecal contamination Patient lying in bed with no major event upon examination. RN at the bedside for morning medications Physical Examination - Vital Signs Temperature: 97.7 F Blood Pressure: 126/62 Pulse: 70 Respirations: 16 Pulse Ox (%): 93 - Physical Exam General: Alert, In no apparent distress, Oriented x3 Respiratory: Normal air movement Cardiovascular: No edema, Normal S1 S2 Gastrointestinal: Hypoactive, Other (LUQ colostomy; 2 JPs; and wound vac in place) Musculoskeletal: No swelling, No tenderness Integumentary: Skin lesion (LUQ colostomy; 2 JPs; and wound vac in place) Neurological: Normal speech, Normal tone, Sensation intact, Normal affect - Studies active medications Acetaminophen (Acetaminophen 325 Mg Tablet) 650 mg PO Q6H PRN PRN Reason: Pain scale 5-7 (Moderate) Last Admin: 12/23/22 08:39 Dose: 650 mg Hydrocodone Bitart/Acetaminophen (Hydrocodone/Apap 7.5/325 Mg Tab) 1 tab PO Q6H PRN PRN Reason: Pain scale 5-7 (Moderate) Last Admin: 12/26/22 21:21 Dose: 1 tab Amiodarone HCl (Amiodarone Hcl 200 Mg Tab) 200 mg PO BID [facility] Last Admin: 12/26/22 21:21 Dose: 200 mg Carvedilol (Carvedilol 6.25 Mg Tab) 6.25 mg PO BID [facility] Last Admin: 12/26/22 21:19 Dose: 6.25 mg Docusate Sodium (Docusate Na 100 Mg Cap) 100 mg PO BID [facility] Last Admin: 12/26/22 21:00 Dose: Not Given Enoxaparin Sodium (Enoxaparin 100 Mg/Ml Syr) 100 mg 1 mg/kg (100 mg) SQ Q12HR [facility] Last Admin: 12/26/22 21:20 Dose: 100 mg Hydralazine HCl (Hydralazine Hcl 20 Mg/Ml Vial) 5 mg IV Q6HP PRN PRN Reason: FOR SBP >160 MMHG Last Admin: 12/21/22 16:25 Dose: 5 mg Pantoprazole Sodium 80 mg/ (Sodium Chloride) 250 mls @ 25 mls/hr IV Q10H [facility]; Protocol Last Admin: 12/27/22 03:27 Dose: Not Given Sodium Chloride (Sodium Chloride 0.45%) 1,000 mls @ 75 mls/hr IV .[id number] [facility] Last Admin: 12/26/22 21:21 Dose: 1,000 mls Lisinopril (Lisinopril 10 Mg Tab) 10 mg PO BID [facility] Last Admin: 12/26/22 21:20 Dose: 10 mg Ondansetron HCl (Ondansetron 4 Mg/2 Ml Vial) 4 mg IV Q6HP PRN PRN Reason: NAUSEA / VOMITING Last Admin: 12/22/22 10:31 Dose: 4 mg Sodium Chloride (Flush Normal Saline 10 Ml) 10 ml IV BID [facility] Last Admin: 12/26/22 21:20 Dose: 10 ml Microbiology Data (last 24 hrs): Microbiology 12/17/22 21:30 Clean Catch Urine [place] Count - Final No growth. 12/17/22 21:30 Clean Catch Urine - Final No growth. Assessment And Plan - Current Problems (Diagnosis) (1) Small bowel perforation Plan: Cultures: - 12/18 BC x 2: Negative - 12/17 Peritoneal fluid: No growth - 12/17 Abdominal fluid: Pseudomonas aeruginosa, susceptible to Levofloxacin, Ciprofloxacin, Meropenem, Tobramycin, and Gentamycin and Streptococcus anginosus Grp, - 12/17 UC: No growth Antibiotics: - Had IV Zosyn (12/17-12/20) - Current on Meropenem (12/20- ) Recommendations: - Continue IV Meropenem for total of 4 weeks (12/20-01/16) 12/18 Dr. Herring had emergent exploratory laparotomy, partial colectomy, colostomy creation 12/26 Dr. Barry-Yossi performed Esophagogastroduodenoscopy due to GI bleeding (2) Peritonitis Plan: Secondary to bowel perforation Cultures: - 12/18 BC x 2: Negative - 12/17 Peritoneal fluid: No growth - 12/17 Abdominal fluid: Pseudomonas aeruginosa, susceptible to Levofloxacin, Ciprofloxacin, Meropenem, Tobramycin, and Gentamycin and Streptococcus anginosus Grp, - 12/17 UC: No growth Antibiotics: - Had IV Zosyn (12/17-12/20) - Current on Meropenem (12/20- ) Recommendations: - Continue IV Meropenem (3) UTI (urinary tract infection) Plan: Cultures: - 12/19 UA: Positive with WBC, Leukocyte esterase, RBC - 12/18 BC x 2: Negative - 12/17 Peritoneal fluid: No growth - 12/17 Abdominal fluid: Pseudomonas aeruginosa, susceptible to Levofloxacin, Ciprofloxacin, Meropenem, Tobramycin, and Gentamycin and Streptococcus anginosus Grp, - 12/17 UC: No growth Antibiotics: - Had IV Zosyn (12/17-12/20) - Current on IV Meropenem Recommendations: - No extra ABX needed - Plan - Diverticulitis of large intestine with perforation - Small bowel perforation: Continue IV antibiotics for total of 4 weeks (12/20- 01/16) - Peritonitis: Cultures pending - Sepsis: On IV antibiotics - Leukocytosis: Keep monitoring the trends - UTI (urinary tract infection): Continue IV antibiotics and cultures pending - Mild protein calorie malnutrition - Hypertension - Bilateral Knee Replacement - Right Hip Replacement ID will closely monitor the patient for sings of infection with fever and WBC trends Case has been discussed with Dr. Sauer, N Physician Review: Patient Assessed, Agree with Above Assessment and Plan
[2022-12-27] MEDS: DOCUSATE NA 100 MG CAP PO SCH ×2 (09:00→21:05)
[2022-12-27] MEDS: AMIODARONE HCL 200 MG TAB PO SCH ×2 (09:00→21:05)
[2022-12-27] MEDS: ENOXAPARIN 100 MG/ML SYR SQ SCH ×2 (09:00→21:09)
[2022-12-27] MEDS: lisinopriL 10 MG TAB PO SCH ×2 (09:00→21:06)
[2022-12-27] MEDS: ENSURE MAX PROTEIN 330 ML LIQUID PO SCH ×2 (09:00→21:00)
[2022-12-27] MEDS: carvediloL 6.25 MG TAB PO SCH ×2 (09:00→21:08)
[2022-12-27] MEDS ORDERED: NACHLORIDE 0.45% 1,000 ML IV SCH (10:20)
[2022-12-27] MEDS: Meropenem 1,000 MG in NA CHLORIDE 0.9% 100 ML IV SCH ×2 (11:51→17:06)
--- NOTE | 2022-12-27 12:49 | P.PN ---
Subjective Date of Service: 12/27/22 Chief Complaint: Bowel Perforation, peritonitis, gross fecal contamination Subjective: Tolerating diet, Improving Physical Examination - Vital Signs Temperature: 97.7 F Blood Pressure: 126/62 Pulse: 70 Respirations: 16 Pulse Ox (%): 93 - Physical Exam General: Alert, In no apparent distress, Oriented x3, Cooperative HEENT: PERRLA, EOMI Neck: Supple Cardiovascular: Normal pulses Gastrointestinal: Soft and benign (ostomy viable and functional) Assessment And Plan - Plan wound VAC advance to soft incentive spirometry DVT prophylaxis IV abx per ID Physician Review: Patient Assessed, Agree with Above Assessment and Plan
[2022-12-27] MEDS: DIPHENHYDRAMINE 25 MG TAB/CAP PO PRN (21:05)
[2022-12-28] MEDS: Meropenem 1,000 MG in NA CHLORIDE 0.9% 100 ML IV SCH ×3 (01:23→17:06)
[2022-12-28] MEDS: HYDROCODONE/APAP 7.5/325 MG TAB PO PRN ×2 (01:29→21:22)
[2022-12-28] MEDS: PANTOPRAZOLE INJ 80 MG in NA CHLORIDE 0.9% 250 ML IV SCH ×2 (01:30→11:42)
[2022-12-28] MEDS ORDERED: Meropenem 1000 MG/VIAL IV ONE (07:59)
[2022-12-28] MEDS ORDERED: NA CHLORIDE 0.9% 100 ML ONE (08:09)
[2022-12-28] MEDS: lisinopriL 10 MG TAB PO SCH ×2 (08:28→21:19)
[2022-12-28] MEDS: carvediloL 6.25 MG TAB PO SCH ×2 (08:28→21:20)
[2022-12-28] MEDS: AMIODARONE HCL 200 MG TAB PO SCH ×2 (08:28→21:20)
[2022-12-28] MEDS: DOCUSATE NA 100 MG CAP PO SCH ×2 (08:28→21:20)
[2022-12-28] MEDS: ENSURE MAX PROTEIN 330 ML LIQUID PO SCH ×2 (09:00→21:00)
[2022-12-28] MEDS: ENOXAPARIN 100 MG/ML SYR SQ SCH ×2 (09:00→21:19)
--- NOTE | 2022-12-28 09:00 | P.PN ---
Subjective Date of Service: 12/28/22 Chief Complaint: Bowel Perforation, peritonitis, gross fecal contamination Patient lying in bed with no major event upon examination. No more black stool. Brown today Physical Examination - Vital Signs Temperature: 97.2 F Blood Pressure: 152/68 Pulse: 60 Respirations: 16 Pulse Ox (%): 96 - Physical Exam General: Alert, In no apparent distress, Oriented x3 Neck: Supple Respiratory: Normal air movement Cardiovascular: No edema, Normal S1 S2 Gastrointestinal: Normal bowel sounds, Other (LUQ colostomy w/ brown stool; 2 JPs-right moderate serous fluid, left small sanguineous fluid; wound vac in place) Musculoskeletal: No swelling, No erythema Integumentary: Skin lesion (LUQ colostomy; 2 JPs; and wound vac in place) Neurological: Normal speech, Normal tone, Sensation intact, Normal affect - Studies active medications Acetaminophen (Acetaminophen 325 Mg Tablet) 650 mg PO Q6H PRN PRN Reason: Pain scale 2-4 (Mild) Last Admin: 12/23/22 08:39 Dose: 650 mg Hydrocodone Bitart/Acetaminophen (Hydrocodone/Apap 7.5/325 Mg Tab) 1 tab PO Q6H PRN PRN Reason: Pain scale 5-7 (Moderate) Last Admin: 12/28/22 01:29 Dose: 1 tab Amiodarone HCl (Amiodarone Hcl 200 Mg Tab) 200 mg PO BID [facility] Last Admin: 12/28/22 08:28 Dose: 200 mg Carvedilol (Carvedilol 6.25 Mg Tab) 6.25 mg PO BID [facility] Last Admin: 12/28/22 08:28 Dose: 6.25 mg Diphenhydramine HCl (Diphenhydramine 25 Mg Tab/Cap) 25 mg PO Q6H PRN PRN Reason: ITCHING Last Admin: 12/27/22 21:05 Dose: 25 mg Docusate Sodium (Docusate Na 100 Mg Cap) 100 mg PO BID [facility] Last Admin: 12/28/22 08:28 Dose: 100 mg Enoxaparin Sodium (Enoxaparin 100 Mg/Ml Syr) 100 mg 1 mg/kg (100 mg) SQ Q12HR [facility] Last Admin: 12/27/22 21:09 Dose: 100 mg Hydralazine HCl (Hydralazine Hcl 20 Mg/Ml Vial) 5 mg IV Q6HP PRN PRN Reason: FOR SBP >160 MMHG Last Admin: 12/21/22 16:25 Dose: 5 mg Meropenem 1,000 mg/ Sodium (Chloride) 100 mls @ 200 mls/hr IV Q8HR [facility] Stop: 01/17/23 01:29 Last Admin: 12/28/22 08:28 Dose: 100 mls Pantoprazole Sodium 80 mg/ (Sodium Chloride) 250 mls @ 25 mls/hr IV Q10H [facility]; Protocol Last Admin: 12/28/22 01:30 Dose: 250 mls Lisinopril (Lisinopril 10 Mg Tab) 10 mg PO BID [facility] Last Admin: 12/28/22 08:28 Dose: 10 mg Ondansetron HCl (Ondansetron 4 Mg/2 Ml Vial) 4 mg IV Q6HP PRN PRN Reason: NAUSEA / VOMITING Last Admin: 12/22/22 10:31 Dose: 4 mg Sodium Chloride (Flush Normal Saline 10 Ml) 10 ml IV BID [facility] Last Admin: 12/28/22 08:29 Dose: 10 ml Microbiology Data (last 24 hrs): Microbiology 12/17/22 21:30 Clean Catch Urine [place] Count - Final No growth. 12/17/22 21:30 Clean Catch Urine - Final No growth. Assessment And Plan - Current Problems (Diagnosis) (1) Small bowel perforation Plan: Cultures: - 12/18 BC x 2: Negative - 12/17 Peritoneal fluid: No growth - 12/17 Abdominal fluid: Pseudomonas aeruginosa, susceptible to Levofloxacin, Ciprofloxacin, Meropenem, Tobramycin, and Gentamycin and Streptococcus anginosus Grp, - 12/17 UC: No growth Antibiotics: - Had IV Zosyn (12/17-12/20) - Current on Meropenem (12/20- ) Recommendations: - Continue IV Meropenem for total of 4 weeks (12/20-01/16) 12/18 Dr. Herring had emergent exploratory laparotomy, partial colectomy, colostomy creation 12/26 Dr. Barker performed Esophagogastroduodenoscopy due to GI bleeding (2) Peritonitis Plan: Secondary to bowel perforation Cultures: - 12/18 BC x 2: Negative - 12/17 Peritoneal fluid: No growth - 12/17 Abdominal fluid: Pseudomonas aeruginosa, susceptible to Levofloxacin, Ciprofloxacin, Meropenem, Tobramycin, and Gentamycin and Streptococcus anginosus Grp, - 12/17 UC: No growth Antibiotics: - Had IV Zosyn (12/17-12/20) - Current on Meropenem (12/20- ) Recommendations: - Continue IV Meropenem (3) UTI (urinary tract infection) Plan: Cultures: - 12/19 UA: Positive with WBC, Leukocyte esterase, RBC - 12/18 BC x 2: Negative - 12/17 Peritoneal fluid: No growth - 12/17 Abdominal fluid: Pseudomonas aeruginosa, susceptible to Levofloxacin, Ciprofloxacin, Meropenem, Tobramycin, and Gentamycin and Streptococcus anginosus Grp, - 12/17 UC: No growth Antibiotics: - Had IV Zosyn (12/17-12/20) - Current on IV Meropenem Recommendations: - No extra ABX needed - Plan - Diverticulitis of large intestine with perforation - Small bowel perforation: Continue IV antibiotics for total of 4 weeks (12/20- 01/16) - Peritonitis: Cultures pending - Sepsis: On IV antibiotics - Leukocytosis: Keep monitoring the trends - UTI (urinary tract infection): Continue IV antibiotics and cultures pending - Mild protein calorie malnutrition - Hypertension - Bilateral Knee Replacement - Right Hip Replacement ID will closely monitor the patient for sings of infection with fever and WBC trends Case has been discussed with Dr. Sauer N Physician Review: Patient Assessed, Agree with Above Assessment and Plan
[2022-12-28 11:28] LABS: Absolute Lymphocytes (CBC) 1.4 K/uL (0.7-4.9); Lymphocytes % 12.8 % (15.3-44.8); MPV 7.8 fL (7.6-11.3); RBC Red Blood Cell Count 5.24 M/uL (4.33-5.43)
[2022-12-28 11:32] LABS: Potassium 4.2 mmol/L (3.5-5.1)
--- NOTE | 2022-12-28 20:54 | P.PN ---
Date of Service: 12/28/22 Vital Signs Temp Pulse Resp BP Pulse Ox 97.7 F 66 16 143/65 H 96 12/28/22 16:00 12/28/22 16:00 12/28/22 16:00 12/28/22 16:00 12/28/22 16:00 Medications Acetaminophen (Acetaminophen 325 Mg Tablet) 650 mg PO Q6H PRN PRN Reason: Pain scale 2-4 (Mild) Last Admin: 12/23/22 08:39 Dose: 650 mg Hydrocodone Bitart/Acetaminophen (Hydrocodone/Apap 7.5/325 Mg Tab) 1 tab PO Q6H PRN PRN Reason: Pain scale 5-7 (Moderate) Last Admin: 12/28/22 01:29 Dose: 1 tab Amiodarone HCl (Amiodarone Hcl 200 Mg Tab) 200 mg PO BID [facility] Last Admin: 12/28/22 08:28 Dose: 200 mg Carvedilol (Carvedilol 6.25 Mg Tab) 6.25 mg PO BID [facility] Last Admin: 12/28/22 08:28 Dose: 6.25 mg Diphenhydramine HCl (Diphenhydramine 25 Mg Tab/Cap) 25 mg PO Q6H PRN PRN Reason: ITCHING Last Admin: 12/27/22 21:05 Dose: 25 mg Docusate Sodium (Docusate Na 100 Mg Cap) 100 mg PO BID [facility] Last Admin: 12/28/22 08:28 Dose: 100 mg Enoxaparin Sodium (Enoxaparin 100 Mg/Ml Syr) 100 mg 1 mg/kg (100 mg) SQ Q12HR [facility] Last Admin: 12/28/22 09:00 Dose: Not Given Hydralazine HCl (Hydralazine Hcl 20 Mg/Ml Vial) 5 mg IV Q6HP PRN PRN Reason: FOR SBP >160 MMHG Last Admin: 12/21/22 16:25 Dose: 5 mg Meropenem 1,000 mg/ Sodium (Chloride) 100 mls @ 200 mls/hr IV Q8HR [facility] Stop: 01/17/23 01:29 Last Admin: 12/28/22 17:06 Dose: 100 mls Lisinopril (Lisinopril 10 Mg Tab) 10 mg PO BID [facility] Last Admin: 12/28/22 08:28 Dose: 10 mg Ondansetron HCl (Ondansetron 4 Mg/2 Ml Vial) 4 mg IV Q6HP PRN PRN Reason: NAUSEA / VOMITING Last Admin: 12/22/22 10:31 Dose: 4 mg Pantoprazole Sodium (Pantoprazole 40mg Tablet) 40 mg PO BID [facility] Sodium Chloride (Flush Normal Saline 10 Ml) 10 ml IV BID [facility] Last Admin: 12/28/22 08:29 Dose: 10 ml Microbiology Results 12/17/22 21:30 Clean Catch Urine [place] Count - Final No growth. 12/17/22 21:30 Clean Catch Urine - Final No growth. Assessment/ Plan: Nephrology No dyspnea No chest pain Feeling better No acute events overnight Vitals, medications, blood work and imaging reviewed in the chart. General: In no apparent distress, Oriented x3, Cooperative HEENT: Atraumatic Neck: Supple Respiratory: Clear to auscultation bilaterally Cardiovascular: Trace LE edema, Regular rate/rhythm Gastrointestinal: Non-distended, Tenderness Musculoskeletal: No clubbing, No contractures Integumentary: No rashes, No cyanosis Neurological: Normal speech Laboratory Data (last 24 hrs) 12/17/22 18:40: Sodium 137, Potassium 4.2, BUN 39 H, Creatinine 2.60 H, Glucose 184 H, Magnesium 1.7, Total Bilirubin 0.8, AST 29, ALT 20, Alkaline Phosphatase 68, Lipase 32 12/17/22 17:44: PT 15.3 H, INR 1.39 12/17/22 17:44: WBC 20.80 H*, Hgb 13.6, Hct 40.2, Plt Count 296 Imagings Data: [facility] CLINICAL HISTORY: ABDOMINAL DISTENTION COMPARISON: No comparisons TECHNIQUE: Portable AP view of the chest. FINDINGS: Blunting of both costophrenic angles, which may relate to decreased inspiratory effort, small effusions, or atelectasis. No pneumothorax. The cardiomediastinal contours are unremarkable. IMPRESSION: Blunting of both costophrenic angles, which may relate to decreased inspiratory effort, small effusions, or atelectasis. EXAM DESCRIPTION: CT - Abdomen Pelvis Wo Contrast - 12/17/2022 8:27 pm CLINICAL HISTORY: Abdominal distention. Left-sided abdominal pain. Nausea COMPARISON: None. TECHNIQUE: Axial thin cut CT imaging of the abdomen and pelvis was performed without IV contrast. Multiplanar reformats were generated and reviewed. All CT scans are performed using dose optimization technique as appropriate and may include automated exposure control or mA/KV adjustment according to patient size. FINDINGS: Absence of IV contrast limits evaluation. Bibasilar dependent atelectatic changes. Moderate amount of free air throughout the anterior abdomen, without significant abdominal distention. A long segment of jejunum in the left upper anterior abdomen demonstrates wall thickening with adjacent fat stranding, and probably reflects an inflamed segment. Remainder of the small bowel is nondistended. A segment of ileum extends within a right inguinal hernia, with no evidence of obstruction. The liver, spleen and pancreas show no suspicious findings. Gallbladder and biliary tree are also without suspicious finding. No hydronephrosis or suspicious renal mass. No significant adrenal finding. A fluid density right renal midpole 2.9 centimeter cystic lesion is noted, as well as a left renal lower pole 3.7 centimeter hypoattenuating lesion. Both are not well characterized on this noncontrast exam. Trace amounts of free fluid along the left paracolic gutter. Colonic diverticulosis. A small left inguinal hernia containing fat is also noted. The urinary bladder is without significant finding. No suspicious bony findings. IMPRESSION: Long segment of jejunum in the left upper anterior abdomen demonstrating wall thickening. Moderate amount of free air, suggesting presence of small bowel perforation, likely related to that segment. The etiology could be infectious, inflammatory, or related to bowel ischemia, absence of IV contrast limits evaluation. Other incidental findings as above, including right inguinal hernia containing nonobstructed segment of ileum, and hypoattenuating renal cortical lesions suggestive of cysts but not fully characterized. Conclusions/Impression: Stage II GAB in the setting of chronic ibuprofen, hypovolemia and sepsis CKD I with proteinuria -No NSAIDs Hypernatremia -Resolved Hypophosphatemia -Replete PO4 prn -Encourage nutrition HTN with CKD -Continue Coreg BID -Continue Lisinopril 10 BID PreDM Hyperglycemia A1C 5.8 -RISS prn Anemia in chronic illness Anemia due to blood loss -Monitor H&H -Transfuse PRBC prn Bowel perforation due to diverticulitis/ peritonitis s/p partial colectomy -Continue abx -Follow up with surgery -Advance diet as tolerated -Continue Colace BID
[2022-12-28] MEDS: PANTOPRAZOLE 40MG TABLET PO SCH (21:19)
[2022-12-29] MEDS: Meropenem 1,000 MG in NA CHLORIDE 0.9% 100 ML IV SCH ×3 (01:00→17:04)
[2022-12-29 06:45] LABS: Absolute Lymphocytes (CBC) 2.2 K/uL (0.7-4.9); Hematocrit 28.3 % (39.6-49.0); Lymphocytes % 21.3 % (15.3-44.8); MCV 84.3 fL (80-100); MPV 7.5 fL (7.6-11.3); RBC Red Blood Cell Count 3.36 M/uL (4.33-5.43)
[2022-12-29 07:05] LABS: Potassium 4.3 mmol/L (3.5-5.1)
[2022-12-29] MEDS: carvediloL 6.25 MG TAB PO SCH ×2 (08:35→20:39)
[2022-12-29] MEDS: AMIODARONE HCL 200 MG TAB PO SCH ×2 (08:35→20:39)
[2022-12-29] MEDS: lisinopriL 10 MG TAB PO SCH ×2 (08:35→20:39)
[2022-12-29] MEDS: DOCUSATE NA 100 MG CAP PO SCH ×2 (08:35→20:39)
[2022-12-29] MEDS: ENSURE MAX PROTEIN 330 ML LIQUID PO SCH ×2 (08:36→20:39)
[2022-12-29] MEDS: PANTOPRAZOLE 40MG TABLET PO SCH ×2 (08:36→20:39)
[2022-12-29] MEDS: ENOXAPARIN 100 MG/ML SYR SQ SCH (08:37)
[2022-12-29] MEDS: HYDROCODONE/APAP 7.5/325 MG TAB PO PRN (20:39)
[2022-12-30] MEDS: Meropenem 1,000 MG in NA CHLORIDE 0.9% 100 ML IV SCH ×3 (00:43→17:01)
[2022-12-30] MEDS: PANTOPRAZOLE 40MG TABLET PO SCH ×2 (08:51→21:01)
[2022-12-30] MEDS: carvediloL 6.25 MG TAB PO SCH ×2 (08:52→21:01)
[2022-12-30] MEDS: AMIODARONE HCL 200 MG TAB PO SCH ×2 (08:52→21:02)
[2022-12-30] MEDS: DOCUSATE NA 100 MG CAP PO SCH ×2 (08:52→21:01)
[2022-12-30] MEDS: ENSURE MAX PROTEIN 330 ML LIQUID PO SCH ×2 (08:53→21:00)
[2022-12-30] MEDS: lisinopriL 10 MG TAB PO SCH ×2 (08:53→21:02)
[2022-12-30] MEDS: ACETAMINOPHEN 325 MG TABLET PO PRN (21:01)
[2022-12-30] MEDS: DIPHENHYDRAMINE 25 MG TAB/CAP PO PRN (21:01)
--- NOTE | 2022-12-31 00:09 | P.PN ---
Subjective Date of Service: 12/25/22 Pt still very weak; Rapid response called; Pt Hgb decreased-melanotic stools; stopped anticoagulation; consulted GI; notified Dr. Herring. PPI drip started, Review of Systems 10-point ROS is otherwise unremarkable Physical Examination - Vital Signs Temperature: 98.6 F Blood Pressure: 153/66 Pulse: 72 Respirations: 16 Pulse Ox (%): 96 - Physical Exam General: Alert, In no apparent distress, Oriented x3 HEENT: Atraumatic, PERRLA, EOMI Neck: Supple, JVD not distended Respiratory: Clear to auscultation bilaterally, Normal air movement Cardiovascular: Regular rate/rhythm, Normal S1 S2 Gastrointestinal: Normal bowel sounds, No tenderness Musculoskeletal: No tenderness Integumentary: No rashes Neurological: Normal speech, Normal tone, Normal affect Lymphatics: No axilla or inguinal lymphadenopathy - Studies Medications List Reviewed: Yes Assessment & Plan - Problems (Diagnosis) (1) Syncope Current Visit: Yes Status: Acute (2) Anemia due to acute blood loss Current Visit: Yes Status: Acute (3) UGIB (upper gastrointestinal bleed) Current Visit: Yes Status: Acute (4) Melena Current Visit: Yes Status: Acute (5) Atrial fibrillation with rapid ventricular response Current Visit: Yes Status: Acute (6) Diverticulitis of large intestine with perforation Current Visit: Yes Status: Acute Qualifiers: Diverticulitis bleeding: without bleeding Qualified Code(s): K57.20 - Diverticulitis of large intestine with perforation and abscess without bleeding (7) Peritonitis Current Visit: Yes Status: Acute (8) Sepsis Current Visit: Yes Status: Acute Qualifiers: Sepsis type: sepsis due to unspecified organism Sepsis acute organ dysfunction status: with acute organ dysfunction Severe sepsis acute organ dysfunction type: acute renal failure Acute renal failure type: unspecified Severe sepsis shock status: without septic shock Qualified Code(s): A41.9 - Sepsis, unspecified organism; R65.20 - Severe sepsis without septic shock; N17.9 - Acute kidney failure, unspecified (9) Hypertension Current Visit: Yes Status: Chronic Qualifiers: Hypertension type: primary hypertension Qualified Code(s): I10 - Essential (primary) hypertension - Plan Plan: 1. Continue with IV hydration and PPI drip 2. Continue with IV antibiotics 3. Continue with pain control 4. NPO 5. GI and General surgery consultation appreciated 6. Monitor serial H&H. 7. hold physical therapy until Hgb stable 8. Wound care 9. Abdominal binder 10. Meds for rate control but hold anticoagulation 11. GI and DVT prophylaxis Discharge Plan: Home Plan to discharge in: Greater than 2 days - Advance Directives Does patient have a Living Will: No Does patient have a Durable POA for Healthcare: No - Code Status/Comfort Care Code Status: Full Code Physician Review: Patient Assessed, Agree with Above Assessment and Plan Critical Care: No Time Spent Managing PTS Care (In Minutes): 35
--- NOTE | 2022-12-31 00:14 | P.PN ---
Date of Service: 12/26/22 Subjective Pt scheduled for EGD; transfused 2u PRBC; EGD scheduled. pt Hgb decreased-still w/ melanotic stools; stopped anticoagulation; Review of Systems 10-point ROS is otherwise unremarkable Physical Examination - Vital Signs Temperature: 98.6 F Blood Pressure: 153/66 Pulse: 72 Respirations: 16 Pulse Ox (%): 96 - Physical Exam General: Alert, In no apparent distress, Oriented x3 Respiratory: Clear to auscultation bilaterally, Normal air movement Cardiovascular: Regular rate/rhythm, Normal S1 S2 Gastrointestinal: Normal bowel sounds, No tenderness; PEARL drain; midline abd incision with wound vac placed; colostomy with melanotic stool Musculoskeletal: No tenderness Neurological: Normal speech, Normal tone, Normal affect Assessment & Plan - Problems (Diagnosis) (1) Syncope Current Visit: Yes Status: Acute (2) Anemia due to acute blood loss Current Visit: Yes Status: Acute (3) UGIB (upper gastrointestinal bleed) Current Visit: Yes Status: Acute (4) Melena Current Visit: Yes Status: Acute (5) Atrial fibrillation with rapid ventricular response Current Visit: Yes Status: Acute (6) Diverticulitis of large intestine with perforation s/p resection/partial colectomy with colostomy Current Visit: Yes Status: Acute Qualifiers: Diverticulitis bleeding: without bleeding Qualified Code(s): K57.20 - Diverticulitis of large intestine with perforation and abscess without bleeding (7) Peritonitis Current Visit: Yes Status: Acute (8) Sepsis Current Visit: Yes Status: Acute Qualifiers: Sepsis type: sepsis due to unspecified organism Sepsis acute organ dysfunction status: with acute organ dysfunction Severe sepsis acute organ dysfunction type: acute renal failure Acute renal failure type: unspecified Severe sepsis shock status: without septic shock Qualified Code(s): A41.9 - Sepsis, unspecified organism; R65.20 - Severe sepsis without septic shock; N17.9 - Acute kidney failure, unspecified (9) Hypertension Current Visit: Yes Status: Chronic Qualifiers: Hypertension type: primary hypertension Qualified Code(s): I10 - Essential (primary) hypertension - Plan Plan: 1. Continue with IV hydration and PPI drip 2. Continue with IV antibiotics 3. Continue with pain control 4. NPO 5. GI and General surgery consultation appreciated; EGD today 6. Monitor serial H&H. 7. hold physical therapy until Hgb stable 8. Wound care 9. Abdominal binder 10. Meds for rate control but hold anticoagulation 11. GI and DVT prophylaxis Discharge Plan: Home Plan to discharge in: Greater than 2 days
[2022-12-31] MEDS: Meropenem 1,000 MG in NA CHLORIDE 0.9% 100 ML IV SCH ×3 (01:15→18:15)
[2022-12-31] MEDS: lisinopriL 10 MG TAB PO SCH ×2 (08:18→22:11)
[2022-12-31] MEDS: carvediloL 6.25 MG TAB PO SCH ×2 (08:18→22:12)
[2022-12-31] MEDS: AMIODARONE HCL 200 MG TAB PO SCH ×2 (08:18→22:12)
[2022-12-31] MEDS: PANTOPRAZOLE 40MG TABLET PO SCH ×2 (08:19→22:11)
[2022-12-31] MEDS: ENSURE MAX PROTEIN 330 ML LIQUID PO SCH ×2 (08:19→22:14)
[2022-12-31] MEDS: DOCUSATE NA 100 MG CAP PO SCH ×2 (08:19→22:12)
[2022-12-31] MEDS: ACETAMINOPHEN 325 MG TABLET PO PRN (14:08)
[2022-12-31] MEDS ORDERED: HYDROCODONE/APAP 10/325 TAB PO ONE (14:30)
[2022-12-31] MEDS: DIPHENHYDRAMINE 25 MG TAB/CAP PO PRN (22:17)
[2023-01-01] MEDS ORDERED: HYDROCODONE/APAP 10/325 TAB PO ONE (00:05)
[2023-01-01] MEDS: Meropenem 1,000 MG in NA CHLORIDE 0.9% 100 ML IV SCH ×3 (00:12→17:23)
[2023-01-01 03:47] LABS: Absolute Lymphocytes (CBC) 2.2 K/uL (0.7-4.9); Hematocrit 30.2 % (39.6-49.0); Lymphocytes % 19.4 % (15.3-44.8); MCV 85.2 fL (80-100); MPV 7.3 fL (7.6-11.3); RBC Red Blood Cell Count 3.54 M/uL (4.33-5.43)
[2023-01-01 03:58] LABS: Potassium 4.1 mmol/L (3.5-5.1)
--- NOTE | 2023-01-01 05:57 | P.PN ---
Date of Service: 12/28/22 Subjective patient continues to improve. Work with Physical therapy and did fairly well. Continuing ambulating. Continue with current care.EGD with exposed vessel; clipping x 2; Continue monitoring H&H. Hold off on anticoagulation. Continue with antibiotics for diverticulitis. Continue wound care and education of patient on colostomy care. While we are going to work on rehab placement. Review of Systems 10-point ROS is otherwise unremarkable Physical Examination - Vital Signs Reviewed - Physical Exam General: Alert, In no apparent distress, Oriented x3 Respiratory: Clear to auscultation bilaterally, Normal air movement Cardiovascular: Regular rate/rhythm, Normal S1 S2 Gastrointestinal: Normal bowel sounds, No tenderness; PEARL drain; midline abd incision with wound vac placed; colostomy with melanotic stool Musculoskeletal: No tenderness Neurological: Normal speech, Normal tone, Normal affect Assessment & Plan - Problems (Diagnosis) (1) Syncope Current Visit: Yes Status: Acute (2) Anemia due to acute blood loss Current Visit: Yes Status: Acute (3) UGIB (upper gastrointestinal bleed) Current Visit: Yes Status: Acute (4) Melena Current Visit: Yes Status: Acute (5) Atrial fibrillation with rapid ventricular response Current Visit: Yes Status: Acute (6) Diverticulitis of large intestine with perforation s/p resection/partial colectomy with colostomy Current Visit: Yes Status: Acute Qualifiers: Diverticulitis bleeding: without bleeding Qualified Code(s): K57.20 - Diverticulitis of large intestine with perforation and abscess without bleeding (7) Peritonitis Current Visit: Yes Status: Acute (8) Sepsis Current Visit: Yes Status: Acute Qualifiers: Sepsis type: sepsis due to unspecified organism Sepsis acute organ dysfunction status: with acute organ dysfunction Severe sepsis acute organ dysfunction type: acute renal failure Acute renal failure type: unspecified Severe sepsis shock status: without septic shock Qualified Code(s): A41.9 - Sepsis, unspecified organism; R65.20 - Severe sepsis without septic shock; N17.9 - Acute kidney failure, unspecified (9) Hypertension Current Visit: Yes Status: Chronic Qualifiers: Hypertension type: primary hypertension Qualified Code(s): I10 - Essential (primary) hypertension - Plan Plan: 1. Continue with IV hydration and PPI drip; change to PPI twice a day and 48 hours 2. Continue with IV antibiotics 3. Continue with pain control 4. NPO 5. GI and General surgery consultation appreciated; EGD with exposed vessel status post clipping x2 6. Monitor serial H&H. 7. hold physical therapy until Hgb stable 8. Wound care 9. Abdominal binder 10. Meds for rate control but hold anticoagulation 11. GI and DVT prophylaxis Discharge Plan: inpatient rehab at [facility] Plan to discharge in: Greater than 2 days
--- NOTE | 2023-01-01 05:59 | P.PN ---
Date of Service: 12/29/22 Subjective Patient continues to improve. Working with Physical therapy and doing fairly well-walked in [place] and strength is much better; still dizzy. Continuing ambulating. Continue with current care. 12/26-EGD with exposed vessel; clipping x 2; Continue monitoring H&H. Hold off on anticoagulation. Continue with antibiotics for diverticulitis. Continue wound care and education of patient on colostomy care. While we are going to work on rehab placement. Review of Systems 10-point ROS is otherwise unremarkable Physical Examination - Vital Signs Reviewed - Physical Exam General: Alert, In no apparent distress, Oriented x3 Respiratory: Clear to auscultation bilaterally, Normal air movement Cardiovascular: Regular rate/rhythm, Normal S1 S2 Gastrointestinal: Normal bowel sounds, No tenderness; PEARL drain; midline abd incision with wound vac placed; colostomy with melanotic stool Musculoskeletal: No tenderness Neurological: Normal speech, Normal tone, Normal affect Assessment & Plan - Problems (Diagnosis) (1) Syncope Current Visit: Yes Status: Acute (2) Anemia due to acute blood loss Current Visit: Yes Status: Acute (3) UGIB (upper gastrointestinal bleed) Current Visit: Yes Status: Acute (4) Melena Current Visit: Yes Status: Acute (5) Atrial fibrillation with rapid ventricular response Current Visit: Yes Status: Acute (6) Diverticulitis of large intestine with perforation s/p resection/partial colectomy with colostomy Current Visit: Yes Status: Acute Qualifiers: Diverticulitis bleeding: without bleeding Qualified Code(s): K57.20 - Diverticulitis of large intestine with perforation and abscess without bleeding (7) Peritonitis Current Visit: Yes Status: Acute (8) Sepsis Current Visit: Yes Status: Acute Qualifiers: Sepsis type: sepsis due to unspecified organism Sepsis acute organ dysfunction status: with acute organ dysfunction Severe sepsis acute organ dysfunction type: acute renal failure Acute renal failure type: unspecified Severe sepsis shock status: without septic shock Qualified Code(s): A41.9 - S epsis, unspecified organism; R65.20 - Severe sepsis without septic shock; N17.9 - Acute kidney failure, unspecified (9) Hypertension Current Visit: Yes Status: Chronic Qualifiers: Hypertension type: primary hypertension Qualified Code(s): I10 - Essential (primary) hypertension - Plan Plan: 1. Continue with IV hydration and PPI drip; change to PPI twice a day in AM 2. Continue with IV antibiotics; ID recc 4 weeks of IV abx 3. Continue with pain control 4. NPO 5. GI and General surgery consultation appreciated; EGD with exposed vessel status post clipping x2(12/26) 6. Monitor serial H&H. 7. Started physical therapy-doing well 8. Wound care 9. Abdominal binder 10. Meds for rate control but hold anticoagulation 11. GI and DVT prophylaxis Discharge Plan: inpatient rehab at [facility] Plan to discharge in: Greater than 2 days
--- NOTE | 2023-01-01 06:00 | P.PN ---
Date of Service: 12/30/22 Subjective Patient continues to improve with no new complaints. Clinical symptoms are much better. 12/26-EGD with exposed vessel; clipping x 2; Continue monitoring H&H. Hold off on anticoagulation. Continue with antibiotics for diverticulitis. Continue wound care and education of patient on colostomy care. While we are going to work on rehab placement. Review of Systems 10-point ROS is otherwise unremarkable Physical Examination - Vital Signs Reviewed - Physical Exam General: Alert, In no apparent distress, Oriented x3 Respiratory: Clear to auscultation bilaterally, Normal air movement Cardiovascular: Regular rate/rhythm, Normal S1 S2 Gastrointestinal: Normal bowel sounds, No tenderness; PEARL drain; midline abd incision with wound vac placed; colostomy with melanotic stool Musculoskeletal: No tenderness Neurological: Normal speech, Normal tone, Normal affect Assessment & Plan - Problems (Diagnosis) (1) Syncope Current Visit: Yes Status: Acute (2) Anemia due to acute blood loss Current Visit: Yes Status: Acute (3) UGIB (upper gastrointestinal bleed) Current Visit: Yes Status: Acute (4) Melena Current Visit: Yes Status: Acute (5) Atrial fibrillation with rapid ventricular response Current Visit: Yes Status: Acute (6) Diverticulitis of large intestine with perforation s/p resection/partial colectomy with colostomy Current Visit: Yes Status: Acute Qualifiers: Diverticulitis bleeding: without bleeding Qualified Code(s): K57.20 - Diverticulitis of large intestine with perforation and abscess without bleeding (7) Peritonitis Current Visit: Yes Status: Acute (8) Sepsis Current Visit: Yes Status: Acute Qualifiers: Sepsis type: sepsis due to unspecified organism Sepsis acute organ dysfunction status: with acute organ dysfunction Severe sepsis acute organ dysfunction type: acute renal failure Acute renal failure type: unspecified Severe sepsis shock status: without septic shock Qualified Code(s): A41.9 - Sepsis, unspecified organism; R65.20 - Severe sepsis without septic shock; N17.9 - Acute kidney failure, unspecified (9) Hypertension Current Visit: Yes Status: Chronic Qualifiers: Hypertension type: primary hypertension Qualified Code(s): I10 - Essential (primary) hypertension - Plan Plan: 1. Change to PPI twice a day 2. Continue with IV antibiotics; ID recc 4 weeks of IV abx 3. Continue with pain control 4. Started clear liquid diet and advancing to full liquid. 5. GI and General surgery consultation appreciated; EGD with exposed vessel s tatus post clipping x2(12/26) 6. Monitor serial H&H. 7. Started physical therapy-doing well 8. Wound care 9. Abdominal binder 10. Meds for rate control but hold anticoagulation 11. GI and DVT prophylaxis Discharge Plan: inpatient rehab at [facility] Plan to discharge in: Greater than 2 days
--- NOTE | 2023-01-01 06:02 | P.PN ---
Date of Service: 12/31/22 Subjective Patient denies any new complaints. He is doing well. Working on inpatient rehab placement. Tolerating regular diet at this time per surgery recommendation. 12/26-EGD with exposed vessel; clipping x 2; Continue monitoring H&H. Hold off on anticoagulation. Continue with antibiotics for diverticulitis. Continue wound care and education of patient on colostomy care. While we are going to work on rehab placement. Review of Systems 10-point ROS is otherwise unremarkable Physical Examination - Vital Signs Reviewed - Physical Exam General: Alert, In no apparent distress, Oriented x3 Respiratory: Clear to auscultation bilaterally, Normal air movement Cardiovascular: Regular rate/rhythm, Normal S1 S2 Gastrointestinal: Normal bowel sounds, No tenderness; PEARL drain; midline abd incision with wound vac placed; colostomy with melanotic stool Musculoskeletal: No tenderness Neurological: Normal speech, Normal tone, Normal affect Assessment & Plan - Problems (Diagnosis) (1) Syncope Current Visit: Yes Status: Acute (2) Anemia due to acute blood loss Current Visit: Yes Status: Acute (3) UGIB (upper gastrointestinal bleed) Current Visit: Yes Status: Acute (4) Melena Current Visit: Yes Status: Acute (5) Atrial fibrillation with rapid ventricular response Current Visit: Yes Status: Acute (6) Diverticulitis of large intestine with perforation s/p resection/partial colectomy with colostomy Current Visit: Yes Status: Acute Qualifiers: Diverticulitis bleeding: without bleeding Qualified Code(s): K57.20 - Diverticulitis of large intestine with perforation and abscess without bleeding (7) Peritonitis Current Visit: Yes Status: Acute (8) Sepsis Current Visit: Yes Status: Acute Qualifiers: Sepsis type: sepsis due to unspecified organism Sepsis acute organ dysfunction status: with acute organ dysfunction Severe sepsis acute organ dysfunction type: acute renal failure Acute renal failure type: unspecified Severe sepsis shock status: without septic shock Qualified Code(s): A41.9 - Sepsis, unspecified organism; R65.20 - Severe sepsis without septic shock; N17.9 - Acute kidney failure, unspecified (9) Hypertension Current Visit: Yes Status: Chronic Qualifiers: Hypertension type: primary hypertension Qualified Code(s): I10 - Essential (primary) hypertension - Plan No significant changes to plan of care at this time. Walked with patient he did really well today. 1. Change to PPI twice a day 2. Continue with IV antibiotics; ID recc 4 weeks of IV abx 3. Continue with pain control 4. Started clear liquid diet and advancing to full liquid. 5. GI and General surgery consultation appreciated; EGD with exposed vessel status post clipping x2(12/26) 6. Monitor serial H&H. 7. Continue physical therapy-doing well 8. Wound care 9. Abdominal binder 10. Meds for rate control but hold anticoagulation 11. GI and DVT prophylaxis Discharge Plan: inpatient rehab at [facility] Plan to discharge in: Greater than 2 days
--- NOTE | 2023-01-01 08:18 | P.PN ---
Subjective Date of Service: 01/01/23 Chief Complaint: Bowel Perforation, peritonitis, gross fecal contamination Patient lying in bed with no major event upon examination. Colostomy with brown soft stool Physical Examination - Vital Signs Temperature: 98.1 F Blood Pressure: 117/56 Pulse: 64 Respirations: 16 Pulse Ox (%): 96 - Physical Exam General: Alert, In no apparent distress, Oriented x3 Respiratory: Clear to auscultation bilaterally Cardiovascular: No edema, Normal S1 S2 Gastrointestinal: Hypoactive (LUQ colostomy w/ brown stool; 2 JPs-right small serous fluid, left scant sanguineous fluid; wound vac in place) Musculoskeletal: No swelling, No tenderness Integumentary: Skin lesion (LUQ colostomy; 2 JPs; and wound vac in place), Other Neurological: Normal speech, Normal tone, Sensation intact, Normal affect - Studies active medications Acetaminophen (Acetaminophen 325 Mg Tablet) 650 mg PO Q6H PRN PRN Reason: Pain scale 2-4 (Mild) Last Admin: 12/31/22 14:08 Dose: 650 mg Amiodarone HCl (Amiodarone Hcl 200 Mg Tab) 200 mg PO BID [facility] Last Admin: 12/31/22 22:12 Dose: 200 mg Carvedilol (Carvedilol 6.25 Mg Tab) 6.25 mg PO BID [facility] Last Admin: 12/31/22 22:12 Dose: 6.25 mg Diphenhydramine HCl (Diphenhydramine 25 Mg Tab/Cap) 25 mg PO Q6H PRN PRN Reason: ITCHING Last Admin: 12/31/22 22:17 Dose: 25 mg Docusate Sodium (Docusate Na 100 Mg Cap) 100 mg PO BID [facility] Last Admin: 12/31/22 22:12 Dose: 100 mg Hydralazine HCl (Hydralazine Hcl 20 Mg/Ml Vial) 5 mg IV Q6HP PRN PRN Reason: FOR SBP >160 [facility] Last Admin: 12/21/22 16:25 Dose: 5 mg Meropenem 1,000 mg/ Sodium (Chloride) 100 mls @ 200 mls/hr IV Q8HR [facility] Stop: 01/17/23 01:29 Last Admin: 01/01/23 00:12 Dose: 100 mls Lisinopril (Lisinopril 10 Mg Tab) 10 mg PO BID [facility] Last Admin: 12/31/22 22:11 Dose: 10 mg Ondansetron HCl (Ondansetron 4 Mg/2 Ml Vial) 4 mg IV Q6HP PRN PRN Reason: NAUSEA / VOMITING Last Admin: 12/22/22 10:31 Dose: 4 mg Pantoprazole Sodium (Pantoprazole 40mg Tablet) 40 mg PO BID [facility] Last Admin: 12/31/22 22:11 Dose: 40 mg Sodium Chloride (Flush Normal Saline 10 Ml) 10 ml IV BID [facility] Last Admin: 12/31/22 22:14 Dose: 10 ml Microbiology Data (last 24 hrs): Microbiology 12/17/22 21:30 Clean Catch Urine [place] Count - Final No growth. 12/17/22 21:30 Clean Catch Urine - Final No growth. Medications List Reviewed: Yes Assessment And Plan - Current Problems (Diagnosis) (1) Small bowel perforation Plan: Cultures: - 12/18 BC x 2: Negative - 12/17 Peritoneal fluid: No growth - 12/17 Abdominal fluid: Pseudomonas aeruginosa, susceptible to Levofloxacin, Ciprofloxacin, Meropenem, Tobramycin, and Gentamycin and Streptococcus anginosus Grp, - 12/17 UC: No growth Antibiotics: - Had IV Zosyn (12/17-12/20) - Current on Meropenem (12/20- ) Recommendations: - Continue IV Meropenem for total of 4 weeks (12/20-01/16) 12/18 Dr. Herring had emergent exploratory laparotomy, partial colectomy, colostomy creation 12/26 Dr. Barker performed Esophagogastroduodenoscopy due to GI bleeding (2) Peritonitis Plan: Secondary to bowel perforation Cultures: - 12/18 BC x 2: Negative - 12/17 Peritoneal fluid: No growth - 12/17 Abdominal fluid: Pseudomonas aeruginosa, susceptible to Levofloxacin, Ciprofloxacin, Meropenem, Tobramycin, and Gentamycin and Streptococcus anginosus Grp, - 12/17 UC: No growth Antibiotics: - Had IV Zosyn (12/17-12/20) - Current on Meropenem (12/20- ) Recommendations: - Continue IV Meropenem (3) UTI (urinary tract infection) Plan: Cultures: - 12/19 UA: Positive with WBC, Leukocyte esterase, RBC - 12/18 BC x 2: Negative - 12/17 Peritoneal fluid: No growth - 12/17 Abdominal fluid: Pseudomonas aeruginosa, susceptible to Levofloxacin, Ciprofloxacin, Meropenem, Tobramycin, and Gentamycin and Streptococcus anginosus Grp, - 12/17 UC: No growth Antibiotics: - Had IV Zosyn (12/17-12/20) - Current on IV Meropenem Recommendations: - No extra ABX needed - Plan - Diverticulitis of large intestine with perforation - Small bowel perforation: Continue IV antibiotics for total of 4 weeks (12/20- 01/16) - Peritonitis: Cultures pending - Sepsis: On IV antibiotics - Leukocytosis: Keep monitoring the trends - UTI (urinary tract infection): Continue IV antibiotics and cultures pending - Mild protein calorie malnutrition - Hypertension - Bilateral Knee Replacement - Right Hip Replacement ID will closely monitor the patient for sings of infection with fever and WBC trends Case has been discussed with Dr. Sauer, N Physician Review: Patient Assessed, Agree with Above Assessment and Plan
[2023-01-01] MEDS: PANTOPRAZOLE 40MG TABLET PO SCH ×2 (08:56→21:07)
[2023-01-01] MEDS: lisinopriL 10 MG TAB PO SCH ×2 (08:56→21:07)
[2023-01-01] MEDS: carvediloL 6.25 MG TAB PO SCH ×2 (08:57→21:07)
[2023-01-01] MEDS: DOCUSATE NA 100 MG CAP PO SCH ×2 (08:57→21:07)
[2023-01-01] MEDS: AMIODARONE HCL 200 MG TAB PO SCH ×2 (08:57→21:07)
[2023-01-01] MEDS: ENSURE MAX PROTEIN 330 ML LIQUID PO SCH ×2 (08:58→21:18)
--- NOTE | 2023-01-01 15:27 | P.PN ---
Subjective Date of Service: 01/01/23 Chief Complaint: Bowel Perforation, peritonitis, gross fecal contamination No acute events overnight. He states that he feels well this morning. He has been working well with PT. He is pending placement into [facility]. He denies any chest pain, palpitations, shortness of breath, abdominal pain, nausea/vomiting, hematochezia, or melena. Appreciate CM assistance. Review of Systems 10-point ROS is otherwise unremarkable General: Weakness (generalized) Physical Examination - Vital Signs Temperature: 98.1 F Blood Pressure: 117/56 Pulse: 64 Respirations: 16 Pulse Ox (%): 96 - Studies Medications List Reviewed: Yes Assessment And Plan - Plan - Physical Exam General: Alert, In no apparent distress, Oriented x3 HEENT: Atraumatic Neck: JVD not distended Respiratory: Clear to auscultation bilaterally, Normal air movement Cardiovascular: No edema, Regular rate/rhythm, No murmurs Gastrointestinal: Normoactive bowel sounds, Other (ostomy in mid-left abdomen with brown/watery stool), No tenderness Musculoskeletal: No clubbing Integumentary: No rashes Neurological: Normal speech, Normal affect # Small Bowel (Jejunum) Perforation with Peritonitis s/p Emergent Exploratory Laparotomy, Partial Colectomy, and Colostomy Formation # Bilateral Inguinal Hernias - CT abdomen/pelvis = "long segment of jejunum in the left upper anterior abdomen demonstrating wall thickening. Moderate amount of free air, suggesting presence of small bowel perforation, likely related to that segment. The etiology could be infectious, inflammatory, or related to bowel ischemia, absence of IV contrast limits evaluation. Other incidental findings as above, including right inguinal hernia containing nonobstructed segment of ileum, and hypoattenuating renal cortical lesions suggestive of cysts but not fully characterized." - General Surgery consulted and he was evaluated by Dr. Herring - recommendations appreciated - S/P emergent exploratory laparotomy, partial colectomy, and colostomy formation (12/17/2022) - Continue meropenem - Diet per Surgery - advanced to GI soft diet - PRN pain control # Acute Blood Loss Anemia due to Acute Upper Gastrointestinal Bleed - Gastroenterology consulted and he was evaluated by Dr. Sy - recommendations appreciated - EGD (12/26) with exposed vessel - s/p clipping x 2 - Serial H&H - transfuse for Hgb < 7.0 - 2 large bore IVs - Pantoprazole 40 mg BID # Atrial Flutter with Rapid Ventricular Response s/p LOLA-DCCV - resolved His [id number] = 3 (HTN=1, Age>75=2), which would typically warrant anticoagulation. - Consulted Cardiology and spoke with Dr. Benitez - recommendations appreciated - Continue amiodarone - S/P LOLA-DCCV on 12/20/22, now in normal sinus rhythm - Anticoagulation on hold given acute GI bleed # Severe Sepsis secondary to Streptococcus Anginosus and Multi-Drug Resistant Pseudomonas Aeruginosa Intra-Abdominal Infection (Peritonitis due to Bowel Perforation) - improved # Possible Urinary Tract Infection He met sepsis criteria based on HR > 90 bpm, RR > 20 breaths/min, and WBC > 12,000 and the suspected source is intra-abdominal. Severe sepsis is suspected due to concern for tissue hypoperfusion/organ dysfunction based on creatinine >2.0 mg/dL (without ESRD) and lactic acid > 2 mmol/L. - Infectious Diseases consulted and spoke with Dr. Sauer - recommendations appreciated - Continue meropenem x 4 weeks (end date: 01/16/2023) - Sepsis order set was initiated - Lactate trend: 2.3 -> 1.6 - Blood cultures x 2 drawn - Broad spectrum antibiotics started: Piperacillin-Tazobactam -> Meropenem - In regards to fluids: - 30 mL/kg of IV fluids was not administered given SBP > 90, MAP > 65, lactic acid < 4, and blood pressure responded to lesser volume # KDIGO Stage II Acute Kidney Injury suspect due to Severe Sepsis - resolved # Right Renal Cyst (2.9 cm) # Left Renal Cyst (3.7 cm) # Microscopic Hematuria - Nephrology consulted and spoke with Dr. Morgan - recommendations appreciated - Creatinine = 2.60 -> 2.00 -> 1.29 -> 1.01 -> 0.95 (baseline creatinine unknown) - Urinalysis = trace ketones, positive nitrite, 510 RBCs, 2050 WBCs, > hyaline casts, 1+ protein - IV fluids per Nephrology - Monitor creatinine and urine output - If worsening, obtain renal ultrasound - Renally dose medications # Hypertension - Continue carvedilol, lisinopril # Deconditioning - Consult PT/OT - Appreciate CM assistance with placement into inpatient rehab ([facility]) Cristian Serrano M.D.
[2023-01-01] MEDS ORDERED: Meropenem 1,000 MG in NA CHLORIDE 0.9% 100 ML IV SCH (17:00)
[2023-01-02] MEDS: Meropenem 1,000 MG in NA CHLORIDE 0.9% 100 ML IV SCH ×2 (02:00→09:01)
[2023-01-02] MEDS: ACETAMINOPHEN 325 MG TABLET PO PRN ×2 (03:14→11:03)
[2023-01-02] MEDS: DOCUSATE NA 100 MG CAP PO SCH (08:58)
[2023-01-02] MEDS: AMIODARONE HCL 200 MG TAB PO SCH (08:58)
[2023-01-02] MEDS: PANTOPRAZOLE 40MG TABLET PO SCH (08:59)
[2023-01-02] MEDS: carvediloL 6.25 MG TAB PO SCH (08:59)
[2023-01-02] MEDS: ENSURE MAX PROTEIN 330 ML LIQUID PO SCH (09:00)
[2023-01-02] MEDS: lisinopriL 10 MG TAB PO SCH (09:00)
[2023-01-02 09:43] VITALS: O2SAT 96
--- NOTE | 2023-01-02 12:00 | P.PN ---
Subjective Date of Service: 01/02/23 Chief Complaint: Bowel Perforation, peritonitis, gross fecal contamination Patient lying in bed eating lunch with and daughter at the bedside with no major event upon examination. Colostomy with brown soft stool Physical Examination - Vital Signs Temperature: 98.2 F Blood Pressure: 136/62 Pulse: 79 Respirations: 16 Pulse Ox (%): 96 - Physical Exam General: Alert, In no apparent distress Respiratory: Clear to auscultation bilaterally, Normal air movement Cardiovascular: No edema, Normal S1 S2 Gastrointestinal: Normal bowel sounds (LUQ colostomy w/ brown stool; 2 JPs-right small serous fluid, left scant sanguineous fluid; wound vac in place) Musculoskeletal: No swelling, No tenderness Integumentary: Skin lesion (LUQ colostomy; 2 JPs; and wound vac in place) Neurological: Normal speech, Normal tone, Sensation intact, Normal affect - Studies active medications Acetaminophen (Acetaminophen 325 Mg Tablet) 650 mg PO Q6H PRN PRN Reason: Pain scale 2-4 (Mild) Last Admin: 01/02/23 11:03 Dose: 650 mg Amiodarone HCl (Amiodarone Hcl 200 Mg Tab) 200 mg PO BID [facility] Last Admin: 01/02/23 08:58 Dose: Not Given Carvedilol (Carvedilol 6.25 Mg Tab) 6.25 mg PO BID [facility] Last Admin: 01/02/23 08:59 Dose: Not Given Diphenhydramine HCl (Diphenhydramine 25 Mg Tab/Cap) 25 mg PO Q6H PRN PRN Reason: ITCHING Last Admin: 12/31/22 22:17 Dose: 25 mg Docusate Sodium (Docusate Na 100 Mg Cap) 100 mg PO BID [facility] Last Admin: 01/02/23 08:58 Dose: 100 mg Hydralazine HCl (Hydralazine Hcl 20 Mg/Ml Vial) 5 mg IV Q6HP PRN PRN Reason: FOR SBP >160 MM[facility] Last Admin: 12/21/22 16:25 Dose: 5 mg Meropenem 1,000 mg/ Sodium (Chloride) 100 mls @ 200 mls/hr IV Q8HR [facility] Stop: 01/17/23 01:29 Last Admin: 01/02/23 09:01 Dose: 100 mls Lisinopril (Lisinopril 10 Mg Tab) 10 mg PO BID [facility] Last Admin: 01/02/23 09:00 Dose: Not Given Ondansetron HCl (Ondansetron 4 Mg/2 Ml Vial) 4 mg IV Q6HP PRN PRN Reason: NAUSEA / VOMITING Last Admin: 12/22/22 10:31 Dose: 4 mg Pantoprazole Sodium (Pantoprazole 40mg Tablet) 40 mg PO BID [facility] Last Admin: 01/02/23 08:59 Dose: 40 mg Sodium Chloride (Flush Normal Saline 10 Ml) 10 ml IV BID [facility] Last Admin: 01/02/23 09:01 Dose: 10 ml Microbiology Data (last 24 hrs): Microbiology 12/17/22 21:30 Clean Catch Urine [place] Count - Final No growth. 12/17/22 21:30 Clean Catch Urine - Final No growth. Medications List Reviewed: Yes Assessment And Plan - Current Problems (Diagnosis) (1) Small bowel perforation Plan: Cultures: - 12/18 BC x 2: Negative - 12/17 Peritoneal fluid: No growth - 12/17 Abdominal fluid: Pseudomonas aeruginosa, susceptible to Levofloxacin, Ciprofloxacin, Meropenem, Tobramycin, and Gentamycin and Streptococcus anginosus Grp, - 12/17 UC: No growth Antibiotics: - Had IV Zosyn (12/17-12/20) - Current on Meropenem (12/20- ) Recommendations: - Continue IV Meropenem for total of 4 weeks (12/20-01/16) 12/18 Dr. Herring had emergent exploratory laparotomy, partial colectomy, colostomy creation 12/26 Dr. SoaresYossi performed Esophagogastroduodenoscopy due to GI bleeding (2) Peritonitis Plan: Secondary to bowel perforation Cultures: - 12/18 BC x 2: Negative - 12/17 Peritoneal fluid: No growth - 12/17 Abdominal fluid: Pseudomonas aeruginosa, susceptible to Levofloxacin, Ciprofloxacin, Meropenem, Tobramycin, and Gentamycin and Streptococcus anginosus Grp, - 12/17 UC: No growth Antibiotics: - Had IV Zosyn (12/17-12/20) - Current on Meropenem (12/20- ) Recommendations: - Continue IV Meropenem (3) UTI (urinary tract infection) Plan: Cultures: - 12/19 UA: Positive with WBC, Leukocyte esterase, RBC - 12/18 BC x 2: Negative - 12/17 Peritoneal fluid: No growth - 12/17 Abdominal fluid: Pseudomonas aeruginosa, susceptible to Levofloxacin, Ciprofloxacin, Meropenem, Tobramycin, and Gentamycin and Streptococcus anginosus Grp, - 12/17 UC: No growth Antibiotics: - Had IV Zosyn (12/17-12/20) - Current on IV Meropenem Recommendations: - No extra ABX needed - Plan - Diverticulitis of large intestine with perforation - Small bowel perforation: Continue IV antibiotics for total of 4 weeks (12/20- 01/16) - Peritonitis: Cultures pending - Sepsis: On IV antibiotics - Leukocytosis: Keep monitoring the trends - UTI (urinary tract infection): Continue IV antibiotics and cultures pending - Mild protein calorie malnutrition - Hypertension - Bilateral Knee Replacement - Right Hip Replacement ID will closely monitor the patient for sings of infection with fever and WBC trends Case has been discussed with Dr. Sauer N Physician Review: Patient Assessed, Agree with Above Assessment and Plan
--- NOTE | 2023-01-02 14:14 | P.DS ---
Admission Date: 12/17/22 Discharge Date: 01/02/23 Disposition: TRANSFER TO INPATIENT REHAB Comment: [facility] Discharge Condition: GOOD Reason for Admission: Bowel Perforation, peritonitis, gross fecal contamination Consultations: 1. General Surgery 2. Infectious Diseases 3. Nephrology 4. Cardiology 5. Gastroenterology Procedures: - 12/17/2022 - Emergent Exploratory Laparotomy, Partial Colectomy, and Colostomy Formation - 12/20/2022 - 1. Transesophageal echocardiogram. 2. A synchronized electrocardioversion using 200 joule, converting atrial flutter to normal sinus rhythm. - 12/26/2022 - Esophagogastroduodenoscopy Hospital Course: DIAGNOSES: # Small Bowel (Jejunum) Perforation with Peritonitis s/p Emergent Exploratory Laparotomy, Partial Colectomy, and Colostomy Formation # Severe Sepsis secondary to Streptococcus Anginosus and Multi-Drug Resistant Pseudomonas Aeruginosa Intra-Abdominal Infection (Peritonitis due to Bowel Perforation) - improved # Acute Blood Loss Anemia due to Acute Upper Gastrointestinal Bleed - improved # Atrial Flutter with Rapid Ventricular Response s/p LOLA-DCCV - resolved # KDIGO Stage II Acute Kidney Injury suspect due to Severe Sepsis - resolved # Possible Urinary Tract Infection # Hypertension # Deconditioning # Right Renal Cyst (2.9 cm) # Left Renal Cyst (3.7 cm) # Microscopic Hematuria # Bilateral Inguinal Hernias HOSPITAL COURSE: Mr. Riaz Esparza is a pleasant 77-year-old male with a past medical history significant for hypertension who was admitted to the [facility] on 12/17/2022 for abdominal pain. He was admitted to the Medicine service. Upon further evaluation, his CT abdomen/pelvis revealed, "long segment of jejunum in the left upper anterior abdomen demonstrating wall thickening. Moderate amount of free air, suggesting presence of small bowel perforation, likely related to that segment. The etiology could be infectious, inflammatory, or related to bowel ischemia, absence of IV contrast limits evaluation. Other incidental findings as above, including right inguinal hernia containing nonobstructed segment of ileum, and hypoattenuating renal cortical lesions suggestive of cysts but not fully characterized." He was diagnosed with a small bowel (jejunum) perforation with peritonitis. General Surgery was consulted and he was evaluated by Dr. Herring. On 12/17/2022, he underwent emergent exploratory Laparotomy, partial colectomy, and colostomy formation. In addition to his bowel perforation, he was diagnosed with severe sepsis due to an intra-abdominal infection. His abdominal cultures would return positive for Streptococcus Anginosus and multi-drug resistant Pseudomonas Aeruginosa. Infectious Diseases was consulted and he was evaluated by Dr. Sauer. He recommended that he receive a 4-week course of meropenem (end date: 01/16/2023). Nephrology was consulted at the time of admission due to his acute kidney injury, which has improved as his clinical condition improved. Post-operatively, he developed atrial flutter with rapid ventricular response. Cardiology was consulted and he was evaluated by Dr. Benitez. He was started on amiodarone and s/p LOLA-DCCV on 12/20/2022. It was recommended that he be started on anticoagulation. However, on 12/26/2022, he developed melenic stools with acute blood loss anemia. He required 3 units of pRBCs during his hospitalization. Gastroenterology was consulted and he was evaluated by Dr. Sy. He underwent an esophagogastroduodenoscopy, and there was an exposed vessel that underwent clipping. His anticoagulation has been discontinued in lig ht of his gastrointestinal bleed. He was advised to follow this up with Cardiology as an outpatient to further discuss anticoagulation in his case. He verbalized understanding and agreed to make this appointment. Incidentally, during his evaluation, he was found to have bilateral renal cysts and microscopic hematuria. He was counseled that microscopic hematuria, in particular, can be a sign of underlying urologic malignancy. He was advised to follow-up these findings with his PCP once discharged from inpatient rehab. He verbalized understanding and agreed to make this appointment. Over the course of his hospitalization, his symptoms continued to improve and was deemed a good candidate for inpatient rehabilitation. With the assistance of case management, he was accepted to [facility]. I have completed a doc-to-doc with Dr. Briseida Villegas, who has generously accepted him for transfer. On 01/02/2023, he was seen on rounds and deemed medically stable for transfer. He was discharged with instructions to schedule follow-up appointments with his PCP, with General Surgery (Dr. Herring), with Cardiology (Dr. Benitez), with Nephrology (Dr. Morgan), and with Gastroenterology (Dr. Sy). He was given the opportunity to ask questions and reported no further questions. Furthermore, all questions were answered to the best of my ability. A copy of this discharge summary will be sent to the above providers to facilitate continuity of care. Today, I personally spent 40 minutes on his case, of which greater than 50% of the time was spent in patient education, counseling, and coordination of care as described above. - Physical Exam General: Alert, In no apparent distress, Oriented x3 HEENT: Atraumatic Neck: JVD not distended Respiratory: Clear to auscultation bilaterally, Normal air movement Cardiovascular: No edema, Regular rate/rhythm, No murmurs Gastrointestinal: Normoactive bowel sounds, Other (ostomy in mid-left abdomen with brown/watery stool), No tenderness Musculoskeletal: No clubbing Integumentary: No rashes Neurological: Normal speech, Normal affect Vital Signs/Physical Exam: Temp Pulse Resp BP Pulse Ox 98.2 F 79 16 136/62 96 01/02/23 12:00 01/02/23 12:00 01/02/23 12:00 01/02/23 12:00 01/02/23 12:00 Laboratory Data at Discharge: WBC 11.50 K/uL (4.3-10.9) H 01/01/23 03:20 Hgb 10.2 g/dL (13.6-17.9) L 01/01/23 03:20 Hct 30.2 % (39.6-49.0) L 01/01/23 03:20 Plt Count 496 K/uL (152-406) H 01/01/23 03:20 PT 13.9 SECONDS (9.5-12.5) H 12/27/22 06:31 INR 1.26 12/27/22 06:31 Sodium 136 mmol/L (136-145) 01/01/23 03:20 Potassium 4.1 mmol/L (3.5-5.1) 01/01/23 03:20 BUN 17 mg/dL (7-18) 01/01/23 03:20 Creatinine 1.12 mg/dL (0.70-1.30) 01/01/23 03:20 Glucose 119 mg/dL (74-106) H 01/01/23 03:20 Uric Acid 5.9 mg/dL (3.5-7.2) 12/22/22 03:30 Phosphorus 2.5 mg/dL (2.5-4.9) 12/26/22 07:09 Magnesium 2.2 mg/dL (1.6-2.4) 12/27/22 06:31 Total Bilirubin 0.9 mg/dL (0.2-1.0) 12/27/22 06:31 AST 26 U/L (15-37) 12/27/22 06:31 ALT 30 U/L (16-61) 12/27/22 06:31 Alkaline Phosphatase 48 U/L (45-117) 12/27/22 06:31 Triglycerides 83 mg/dL (<150) 12/18/22 04:18 Cholesterol 75 mg/dL (<200) 12/18/22 04:18 HDL Cholesterol 30 mg/dL (40-60) L 12/18/22 04:18 Cholesterol/HDL Ratio 2.50 12/18/22 04:18 Lipase 32 U/L (13-75) 12/17/22 18:40 Home Medications: Amiodarone HCl [Cordarone*] 200 mg PO BID tab 01/02/23 carvediloL [Coreg*] 6.25 mg PO BID tab 01/02/23 lisinopriL [Prinivil*] 10 mg PO BID tab 01/02/23 Physician Discharge Instructions: - Continue care at [facility] Diet: Regular Activity: Fall precautions Followup: Briseida Villegas MD [OUTSIDE PHYSICIAN] - Ranjeet Benitez MD [ACTIVE - CAN ADMIT] - Jose Herring MD [ACTIVE - CAN ADMIT] - He Sauer MD [ACTIVE - CAN ADMIT] - Deepak Morgan DO [ACTIVE - CAN ADMIT] - Javon Sy MD [ASSOCIATE-ACTIVE - CAN ADMIT] - Time spent managing pt's care (in minutes): 40
[2023-01-02 15:59] VITALS: TEMP 98.6
[2023-01-02 16:44] VITALS: BP 126/61
== END 2023-01-02 17:40 | DRG 853 ==
LOC: ER 16:46 → 3RD-ICU 21:36 → 4TH 12-20 17:30
PROVIDERS: ADMIT Internal Medicine; ATTEND Internal Medicine
PROC: 0D1M0Z4 Bypass Descending Colon to Cutaneous, Open Approach (ICD-10-PCS; principal; 2022-12-18)
PROC: 0DBM0ZZ Excision of Descending Colon, Open Approach (ICD-10-PCS; 2022-12-18)
PROC: 5A2204Z Restoration of Cardiac Rhythm, Single (ICD-10-PCS; 2022-12-20)
PROC: B24BZZ4 Ultrasonography of Heart with Aorta, Transesophageal (ICD-10-PCS; 2022-12-20)
PROC: 0W3P8ZZ Control Bleeding in Gastrointestinal Tract, Via Natural or Artificial Opening Endoscopic (ICD-10-PCS; 2022-12-26)
PROC: 30233N1 Transfusion of Nonautologous Red Blood Cells into Peripheral Vein, Percutaneous Approach (ICD-10-PCS; 2022-12-26)
DX: A40.8 Other streptococcal sepsis (principal); K25.0 Acute gastric ulcer with hemorrhage; K65.9 Peritonitis, unspecified; N17.9 Acute kidney failure, unspecified; I48.92 Unspecified atrial flutter; K57.40 Diverticulitis of both small and large intestine with perforation and abscess without bleeding; E44.1 Mild protein-calorie malnutrition; N30.01 Acute cystitis with hematuria; Z16.24 Resistance to multiple antibiotics; E87.0 Hyperosmolality and hypernatremia; D62 Acute posthemorrhagic anemia; K40.90 Unilateral inguinal hernia, without obstruction or gangrene, not specified as recurrent; N28.1 Cyst of kidney, acquired; I48.91 Unspecified atrial fibrillation; I10 Essential (primary) hypertension; D63.8 Anemia in other chronic diseases classified elsewhere; E83.39 Other disorders of phosphorus metabolism; R73.9 Hyperglycemia, unspecified; R65.20 Severe sepsis without septic shock; R73.03 Prediabetes; Z68.32 Body mass index [BMI] 32.0-32.9, adult; Z79.82 Long term (current) use of aspirin; Z96.653 Presence of artificial knee joint, bilateral; Z96.641 Presence of right artificial hip joint; Z79.899 Other long term (current) drug therapy; Z96.611 Presence of right artificial shoulder joint; Z20.822 Contact with and (suspected) exposure to COVID-19
CPT/HCPCS: 36415; 36430; 71045; 74176; 80048; 80053; 80061; 80076; 81001; 81003; 81015; 82043; 82570; 83036; 83605; 83690; 83735; 83880; 84100; 84132; 84156; 84443; 84484; 84550; 85014; 85018; 85025; 85027; 85044; 85610; 86850; 86900; 86901; 87040; 87070; 87075; 87077; 87086; 87088; 87186; 87205; 87338; 87811; 88305; 88307; 92960; 93005; 93312; 93971; 94010; 96361; 96365; 96375; 97110; 97112; 97116; 97161; 97165; 97530; 99285; C9113; J0153; J0171; J0282; J0330; J0360; J0461; J1160; J1170; J1200; J1650; J2185; J2250; J2370; J2405; J2543; J2704; J2710; J2930; J3010; J3475; J3480; J7030; J7040; J7050; J7060; J7120; P9016